=== PATIENT | female | born 1950 | race Caucasian/White ===

== ENCOUNTER 2020-01-14 17:20 | Inpatient (IN) | payer MEDICARE, OTHER, SELFPAY ==
[2020-01-14 17:38] VITALS: BMI 41.1
[2020-01-15] VITALS (10 sets, daily range): BP systolic 76–104; BP diastolic 38–56; PULSE 67–135; RESP 17–20; TEMP 35.2–38.1; O2SAT 91–97
--- NOTE | 2020-01-15 | XR_ITS ---
EXAMINATION: CHEST X-RAY CLINICAL INFORMATION: Fever and shortness of breath COMPARISON: None TECHNIQUE: AP portable chest FINDINGS: Exam is limited due to apical lordotic film technique. The cardiac silhouette appears prominent however this may be artifactual from apical lordotic film technique. Hilar and mediastinal contours are unremarkable. The lungs are clear without evidence of a pneumonia. There is no pleural effusion or pneumothorax. There are degenerative changes of the spine. IMPRESSION: Prominence of the cardiac silhouette which may be artifactual due to apical lordotic film technique. No evidence of pneumonia.
[2020-01-15] MEDS: HYDROmorphone HCl 0.5 MG/0.5 ML SYRINGE IVPUSH (01:15)
[2020-01-15] MEDS: Ketorolac Tromethamine 15 MG/ML VIAL IV (04:57)
[2020-01-15 06:41] LABS: MANUAL DIFF FLAG NO
[2020-01-15 06:52] LABS: Basophils Percent Auto 0.3 % (0-2); Eosinophils Absolute Auto 0.3 X10*3/uL (0.0-0.4); Eosinophils Percent Auto 2.6 % (0-4); Hematocrit 28.9 % (37-47); Hemoglobin 9.1 g/dl (12.0-16.0); Imm Gran Abs Auto 0.05 X10*3/uL (0.00-0.03); Imm Gran Pct Auto 0.4 % (0.0-0.4); Lymphocytes Absolute Auto 1.9 X10*3/uL (1.2-4.9); Mean Corpuscular HGB Conc 31.5 g/dl (31.0-35.0); Mean Corpuscular Hemoglobin 29.2 pg (27.0-33.0); Mean Corpuscular Volume 92.6 fL (80-98); Mean Platelet Volume 12.1 fL (9.4-12.3); Monocytes Absolute Auto 1.4 X10*3/uL (0.1-1.2); Monocytes Percent Auto 11.4 % (2-11); Neutrophils Absolute Auto 8.3 X10*3/uL (2.0-8.3); Neutrophils Percent Auto 69.3 % (45-73); Platelet Count 167 X10*3/uL (160-400); Red Blood Count 3.12 X10*6/uL (4.20-5.50); Red Cell Distribution Width 13.2 % (11.0-16.0)
[2020-01-15 07:06] LABS: Anion Gap 9 (12-20); Blood Urea Nitrogen 14 mg/dL (9-16); Calcium 8.4 mg/dL (8.4-10.2); Carbon Dioxide 31 mmol/L (22-29); Chloride 101 mmol/L (96-108); Creatinine Clr Calc Pharmacy 75.1; Estimated Glomerular Filt Rate > 60; Glucose Random 132 mg/dL (60-115); Potassium 3.7 mmol/l (3.3-5.1); Sodium 137 mmol/L (135-145)
[2020-01-15] MEDS: Dextrose 5 % and 0.45 % NaCl 1,000 ML 80 ML IVCONT ×2 (07:36→20:37)
[2020-01-15] MEDS: oxyCODONE HCl Immed Release 5 MG TABLET 10 MG PO ×2 (09:15→15:56)
[2020-01-15] MEDS: Omeprazole 20 MG CAPSULE.DR PO (09:18)
[2020-01-15] MEDS: oxyCODONE HCl ER 10 MG TAB.ER.12H PO ×2 (09:20→20:35)
[2020-01-15] MEDS: Celecoxib 200 MG CAPSULE PO ×2 (09:20→20:34)
[2020-01-15] MEDS: Acetaminophen 325 MG TABLET 650 MG PO ×3 (09:21→19:22)
--- NOTE | 2020-01-15 11:44 | PM.PNORT ---
Subjective Subjective Principal diagnosis: s/p Rt TKA Interval history: No overnight events. She is ambulating with a walker with some moderate pain. She complains of epigastric pain not see incidents. Physical Exam Vital Signs and I&O and Narrative: Vital Signs and I&O: Vital Signs Temp 100.6 F H 01/15/20 08:00 Pulse 106 H 01/15/20 08:00 Resp 20 01/15/20 08:00 BP 100/47 L 01/15/20 04:00 Pulse Ox 95 01/15/20 08:00 Intake & Output 01/14/20 01/15/20 01/15/20 18:59 06:59 18:59 Weight 217 lb 6.449 oz Body Mass Index 41.1 Extrem: Right lower extremity: normal to inspection, full ROM and normal capillary refill Progress Note: A&P Assessment and plan (1) Status post total right knee replacement: Status: Acute Assessment and Plan: cont pain mgmnt cont PT for RT TKA eliquis for dvt ppx dispo planning Fall Risk Details Current Medications: Current Medications Generic Name Dose Route Start Last Admin Trade Name Freq PRN Reason Stop Dose Admin Acetaminophen 650 mg 01/15/20 01:00 01/15/20 09:21 Acetaminophen 325 Mg Tablet PO 650 mg Q6H DIO Administration Apixaban 2.5 mg 01/15/20 12:00 Apixaban 2.5 Mg Tablet PO Q24H DIO Celecoxib 200 mg 01/15/20 09:00 01/15/20 09:20 Celecoxib 200 Mg Capsule PO 200 mg BID DIO Administration Hydromorphone HCl 0.5 mg 01/15/20 00:00 01/15/20 01:15 Hydromorphone Hcl 0.5 Mg/0.5 Ml Syringe IVPUSH 0.5 mg Q3H PRN Administration Pain, Severe (Pain Scale 7-10) Dextrose/Sodium Chloride 1,000 mls @ 80 mls/hr 01/15/20 01:00 01/15/20 07:36 D51/2ns IVCONT 80 mls/hr .[id number] DIO Administration Ketorolac Tromethamine 15 mg 01/15/20 05:00 01/15/20 04:57 Ketorolac Tromethamine 15 Mg/Ml Vial IV 15 mg Q6H DIO Administration Omeprazole 20 mg 01/15/20 16:30 01/15/20 09:18 Omeprazole 20 Mg Capsule. PO 20 mg BID@0630,1630 [facility] Administration Omeprazole 40 mg 01/15/20 16:30 Omeprazole 40 Mg Capsule. PO BID@0630,1630 [facility] Ondansetron HCl 4 mg 01/15/20 00:00 Ondansetron Hcl 4 Mg/2 Ml Vial IVPUSH Q8H PRN Nausea and Vomiting Oxycodone HCl 10 mg 01/15/20 09:00 01/15/20 09:20 Oxycodone Hcl Er 10 Mg Tab.Er.12h PO 10 mg BID DIO Administration Oxycodone HCl 10 mg 01/15/20 00:00 01/15/20 09:15 Oxycodone Hcl Immed Release 5 Mg Tablet PO 10 mg Q4H PRN Administration Pain, Moderate (Pain Scale 4-6 Senna/Docusate Sodium 1 tab 01/15/20 00:00 Sennosides/Docusate Sodium Tablet PO BEDTIME PRN Constipation Time Spent With Patient Time: Total time spent is greater than 50% in coordination of care (as documented) at patient's floor/unit and/or counseling patient: Time with patient: less than 15 minutes
--- NOTE | 2020-01-15 11:54 | MHC.CM.PN ---
Pt reports she lives at home with her adult son and daughter. Pt reports [employer] she had no services and did not use any DME although she has a cane and two walkers. Pt typically drives herself to appts and is independent with all care. Pt reports she has a HCP completed already. Copy requested. pt interested in having VNA/PT at [place]. Referral placed to [facility] per pt preference.
[2020-01-15 12:36] LABS: Glucose, Whole Blood 115 mg/dL (60-115)
[2020-01-15] MEDS: ondansetron HCL 4 MG/2 ML VIAL IVPUSH (13:01)
--- NOTE | 2020-01-15 13:10 | HO.PM.IMPN ---
Subjective Subjective Date of Service: 01/15/20 Interval History: patient seen and examined at bedside patient was reporting nausea and vomiting yesterday patient denies any nausea and vomiting in the morning but started feeling nauseous in the afternoon Constitutional Constitutional: Reports weakness Gastrointestinal Gastrointestinal: Reports heartburn and Reports vomiting Neurologic Neurologic: Reports weakness Physical Exam Vital Signs and I&O and Narrative: Vital Signs and I&O: Vital Signs Temp 95.4 F L 01/15/20 12:14 Pulse 78 01/15/20 12:14 Resp 20 01/15/20 12:14 BP 102/46 L 01/15/20 12:14 Pulse Ox 97 01/15/20 12:14 Intake & Output 01/14/20 01/15/20 01/15/20 18:59 06:59 18:59 Weight 98.612 kg Body Mass Index 41.1 Const: General: comfortable Resp: Effort & Inspection: normal respiratory effort Cardio: Jugular venous distension: no JVD Skin: General skin exam: no rashes or lesions noted Objective Data Current Medications Generic Name Dose Route Start Last Admin Trade Name Freq PRN Reason Stop Dose Admin Acetaminophen 650 mg 01/15/20 01:00 01/15/20 09:21 Acetaminophen 325 Mg Tablet PO 650 mg Q6H DIO Administration Apixaban 2.5 mg 01/15/20 12:00 Apixaban 2.5 Mg Tablet PO Q24H DIO Celecoxib 200 mg 01/15/20 09:00 01/15/20 09:20 Celecoxib 200 Mg Capsule PO 200 mg BID DIO Administration Hydromorphone HCl 0.5 mg 01/15/20 00:00 01/15/20 01:15 Hydromorphone Hcl 0.5 Mg/0.5 Ml Syringe IVPUSH 0.5 mg Q3H PRN Administration Pain, Severe (Pain Scale 7-10) Dextrose/Sodium Chloride 1,000 mls @ 80 mls/hr 01/15/20 01:00 01/15/20 07:36 D51/2ns IVCONT 80 mls/hr .[id number] DIO Administration Ketorolac Tromethamine 15 mg 01/15/20 05:00 01/15/20 04:57 Ketorolac Tromethamine 15 Mg/Ml Vial IV 15 mg Q6H DIO Administration Omeprazole 40 mg 01/15/20 16:30 Omeprazole 40 Mg Capsule.Dr PO BID@0057,7959 [facility] Ondansetron HCl 4 mg 01/15/20 00:00 01/15/20 13:01 Ondansetron Hcl 4 Mg/2 Ml Vial IVPUSH 4 mg Q8H PRN Administration Nausea and Vomiting Oxycodone HCl 10 mg 01/15/20 09:00 01/15/20 09:20 Oxycodone Hcl Er 10 Mg Tab.Er.12h PO 10 mg BID DIO Administration Oxycodone HCl 10 mg 01/15/20 00:00 01/15/20 09:15 Oxycodone Hcl Immed Release 5 Mg Tablet PO 10 mg Q4H PRN Administration Pain, Moderate (Pain Scale 4-6 Polyethylene Glycol 17 gm 01/16/20 09:00 Polyethylene Glycol 3350 17 Gm Powd.Pack PO DAILY DIO Senna/Docusate Sodium 1 tab 01/15/20 00:00 Sennosides/Docusate Sodium Tablet PO BEDTIME PRN Constipation Labs CBC & Chem 7: 01/16/20 08:15 01/16/20 08:15 Labs: Laboratory Results - last 24 hr 01/15/20 01/15/20 01/15/20 06:00 06:00 12:32 MCV 92.6 MCH 29.2 MCHC 31.5 RDW 13.2 Plt Count 167 MPV 12.1 Immature Gran % (Auto) 0.4 Neut % (Auto) 69.3 Lymph % (Auto) 16.0 L [place] % (Auto) 11.4 H Eos % (Auto) 2.6 Baso % (Auto) 0.3 Neut # (Auto) 8.3 Lymph # (Auto) 1.9 [place] # (Auto) 1.4 H Eos # (Auto) 0.3 Baso # (Auto) 0.0 Abs Immat Gran (auto) 0.05 H Absolute Nucleated RBC 0.000 Nucleated RBC % (auto) 0.0 Anion Gap 9 L Estim Creat Clear Calc 75.1 Estimated GFR > 60 POC Glucose 115 Random Glucose 132 H Calcium 8.4 Assessment and Plan (1) Status post total right knee replacement: Status: Acute Assessment and Plan: management per Ortho (2) Nausea & vomiting: Status: Acute Assessment and Plan: likely gastritis secondary to Toradol history of gastric bypass surgery continue Zofran continue IV famotidine supportive management if patient's symptoms does not improve Will get GI consult (3) Abdominal pain: Status: Acute Assessment and Plan: (4) Diabetes mellitus: Status: Acute (5) Sleep apnea: Status: Acute (6) Low grade fever: Status: Acute Assessment and Plan: will check UA and chest x-ray (7) Leukocytosis: Status: Acute Assessment and Plan: will check UA and chest x-ray history of DVT continue Eliquis
[2020-01-15] MEDS: Famotidine/PF 20 MG/2 ML VIAL IVPUSH (13:54)
[2020-01-15] MEDS: polyethylene glycoL 3350 17 GM POWD.PACK PO (13:55)
[2020-01-15] MEDS: 0.9 % Sodium Chloride 500 ML IV (13:56)
[2020-01-15 14:58] LABS: Glucose Urine UA NEG (NEG); Leukocyte Esterase Urine NEG (NEG); Nitrite Urine NEG (NEG); PH 5.5 (5.0-8.0); Specific Gravity - Urine 1.025 (1.005-1.025); Urine Blood NEG (NEG); Urine Ketones NEG (NEG); Urine Protein TRACE MG/DL (NEG-TRACE)
[2020-01-15 15:01] LABS: Color Urine YELLOW
[2020-01-15 15:02] LABS: Appearance Urine HAZY
--- NOTE | 2020-01-15 15:21 | PC.NURSE ---
AT APPROX. 1230 PT C/O NOT FEELING WELL. SHE DESCRIBES FEEING NAUSEOUS WITH HEARTBURN. ALSO FELT SWEATY AND LIGHT HEADED. BLOOD SUGAR WAS 115. BP 92/45 HR 77. O2 SAT WAS 88 RA. 92% ON 2LT. PT WAS ASSISTED BACK TO BED. DR SMITH MADE AWARE. 500ML NS BOLUS GIVEN. ALSO GIVNE ZOFRAN WITH GOOD EFFECT. MEDICATED WITH IV PEPCID. U/A WAS SENT TO LAB. CHEST XRAY NEG FOR PNEUMONIA AT 1500 PT FEELING MUCH BETTER.
[2020-01-15] MEDS: Magnesium Hydrox/Alum Hydrox 30 ML ORAL.SUSP 15 ML PO (17:55)
[2020-01-15] MEDS: diphenhydrAMINE HCL 25 MG TABLET PO (19:19)
[2020-01-16] VITALS (15 sets, daily range): BP systolic 82–132; BP diastolic 40–62; PULSE 69–92; RESP 18–20; TEMP 36–37.1; O2SAT 92–100; BMI 41.1
[2020-01-16] MEDS: Acetaminophen 325 MG TABLET 650 MG PO ×3 (00:32→20:29)
[2020-01-16] MEDS: diphenhydrAMINE HCL 25 MG TABLET PO (01:22)
[2020-01-16] MEDS: Magnesium Hydrox/Alum Hydrox 30 ML ORAL.SUSP 15 ML PO (01:53)
--- NOTE | 2020-01-16 03:37 | CONS_ITS ---
DATE OF SERVICE: 01/15/2020 REFERRING PHYSICIAN: Zafar Mahan MD REASON FOR CONSULTATION: Nausea, vomiting, abdominal pain, and gastric bypass surgery. HISTORY OF PRESENT ILLNESS: The patient is a pleasant 69-year-old woman who underwent knee replacement on the right on January 12. Postoperatively, she has had some postprandial nausea with vomiting, some generalized substernal and epigastric pain, and some constipation. She denies prior history of GI issues. She is status post gastric bypass surgery for elevated BMI approximately 9 months ago and reports losing about 60 pounds. She does not take anything at home for reflux. In the hospital, postoperatively, she has been on Pepcid. She complains of a burning sensation in the epigastrium and lower substernal chest area after eating. There is no hematemesis or melena and no dysphagia. She has had some constipation postoperatively. PAST MEDICAL HISTORY: 1. Hypertension. 2. Borderline diabetes. 3. Elevated BMI. 4. Degenerative joint disease. 5. Colon polyps. CURRENT MEDICATIONS: Her current medication list is reviewed in the chart. ALLERGIES: ENOXAPARIN AND MORPHINE. FAMILY HISTORY: This is reviewed with the patient, it is noncontributory. SOCIAL HISTORY: There is no current tobacco, alcohol, or substance abuse. REVIEW OF SYSTEMS: SKIN: No pruritus. HEENT: Negative. CARDIOPULMONARY: No shortness of breath or chest pain. GASTROINTESTINAL: As above. GENITOURINARY: Negative. NEUROPSYCHIATRIC: Negative. PHYSICAL EXAMINATION: GENERAL: Shows a pleasant female who was eating a ham and cheese sandwich. VITAL SIGNS: Stable. SKIN: Anicteric. HEENT: Shows no scleral icterus. NECK: Without lymphadenopathy or thyromegaly. LUNGS: Clear. HEART: Shows a regular rate and rhythm. S1 and S2. No murmur. ABDOMEN: Soft without focal masses or tenderness. Bowel sounds are present. No organomegaly is noted. EXTREMITIES: Without edema. Venodyne boots are in place on the left leg. LABORATORY DATA: Shows a hematocrit of 30 and white count of 9.9. IMPRESSION: Abdominal pain with nausea, vomiting, and history of gastric bypass surgery, this seems very likely that some of her symptoms are related to esophageal reflux or gastritis. There is no evidence of active GI bleeding. I would recommend aggressive acid suppression with IV Protonix until she feels better, then she can be switched over to oral omeprazole. She can have antacids as needed before meals to help with the discomfort with eating. Thanks for asking me to see her. I will follow her in the hospital with you. MD JACQUELINE Ignacio/TAB / [id number]
[2020-01-16 06:26] LABS: MANUAL DIFF FLAG NO
[2020-01-16 06:32] LABS: Basophils Absolute Auto 0.1 X10*3/uL (0.0-0.2); Basophils Percent Auto 0.6 % (0-2); Eosinophils Absolute Auto 0.2 X10*3/uL (0.0-0.4); Eosinophils Percent Auto 2.6 % (0-4); Hematocrit 24.6 % (37-47); Hemoglobin 7.7 g/dl (12.0-16.0); Imm Gran Abs Auto 0.04 X10*3/uL (0.00-0.03); Imm Gran Pct Auto 0.4 % (0.0-0.4); Lymphocytes Percent Auto 21.3 % (20-40); Mean Corpuscular HGB Conc 31.3 g/dl (31.0-35.0); Mean Corpuscular Hemoglobin 29.2 pg (27.0-33.0); Mean Corpuscular Volume 93.2 fL (80-98); Mean Platelet Volume 12.1 fL (9.4-12.3); Monocytes Absolute Auto 0.9 X10*3/uL (0.1-1.2); Monocytes Percent Auto 9.1 % (2-11); Neutrophils Absolute Auto 6.2 X10*3/uL (2.0-8.3); Platelet Count 138 X10*3/uL (160-400); Red Blood Count 2.64 X10*6/uL (4.20-5.50); Red Cell Distribution Width 13.2 % (11.0-16.0); White Blood Count 9.3 X10*3/uL (4.8-10.8)
[2020-01-16] MEDS: Pantoprazole Sodium 40 MG/10 ML VIAL IVPUSH ×2 (06:36→20:32)
[2020-01-16] MEDS: oxyCODONE HCl Immed Release 5 MG TABLET 10 MG PO ×3 (06:37→23:57)
[2020-01-16] MEDS: 0.9 % Sodium Chloride 1,000 ML 75 ML IVCONT (08:05)
--- NOTE | 2020-01-16 08:25 | PM.PNORT ---
Subjective Subjective Principal diagnosis: s/p Rt TKA Interval history: POD 3 - No overnight events, resting in bed, She was seen by GI who recommended IV protonix . Her BP is on the lower side, she had some bolus yesterday. She denies cp, sob, dizziness. Physical Exam Vital Signs and I&O and Narrative: Vital Signs and I&O: Vital Signs Temp 96.8 F 01/16/20 07:29 Pulse 71 01/16/20 07:29 Resp 20 01/16/20 07:29 BP 82/48 L 01/16/20 07:48 Pulse Ox 93 01/16/20 07:29 Intake & Output 01/15/20 01/16/20 01/16/20 18:59 06:59 18:59 Intake Total 720 / 1520 800 / 1520 0 / 0 Balance 720 / 1520 800 / 1520 0 / 0 Intake: Intake, Oral [place] unt 220 / 220 Intake, IV Amoun t 500 / 1300 800 / 1300 0 / 0 0.9 % Sodium C hloride 500 ml @ 500 / 500 500 mls/hr IV .Q1H DIO Rx#: [id number] Dextrose 5 % a nd 0.45 % NaCl 1, 800 / 800 0 / 0 000 ml @ 80 ml s/hr IVCONT . [id number] DIO Rx #:[id number] Other: Meal Refused No No NPO No No Dinner % Eaten 50% Number of Incont inent Voids 600 Number of Unmeas ured Voids 1 Urine Bathroom Urine Color Yellow Body Mass Index 41.1 Const: General: cooperative, healthy appearing, comfortable and no acute distress Resp: Effort & Inspection: normal respiratory effort and able to speak in complete sentences Cardio: Peripheral pulses: Peripheral pulses 2+ throughout GI: Palpation (GI): Soft to palpation Extrem: Other: [place] clean, dry and intact. No erythema, mild edema, Sensation intact. Progress Note: A&P Assessment and plan (1) Status post total right knee replacement: Status: Acute Assessment and Plan: Continue pain mgmnt continue PT for RT TKA continue eliquis monitor BP/h/h Dispo planning-pending medical clearance Fall Risk Details Current Medications: Current Medications Generic Name Dose Route Start Last Admin Trade Name Freq PRN Reason Stop Dose Admin Acetaminophen 650 mg 01/15/20 01:00 10/02/20 06:36 Acetaminophen 325 Mg Tablet PO 650 mg Q6H DIO Administration Al Hydroxide/Mg Hydroxide 15 ml 01/15/20 17:30 01/16/20 01:53 Magnesium Hydrox/Alum Hydrox 30 Ml Oral.Susp PO 15 ml Q4H PRN Administration GI Upset Diphenhydramine HCl 25 mg 01/15/20 19:06 01/16/20 01:22 Diphenhydramine Hcl 25 Mg Tablet PO 25 mg Q6H PRN Administration Itching Hydromorphone HCl 0.5 mg 01/15/20 00:00 01/15/20 01:15 Hydromorphone Hcl 0.5 Mg/0.5 Ml Syringe IVPUSH 0.5 mg Q3H PRN Administration Pain, Severe (Pain Scale 7-10) Sodium Chloride 1,000 mls @ 75 mls/hr 01/16/20 08:00 01/16/20 08:05 Ns IVCONT 75 mls/hr .[id number] DIO Administration Ondansetron HCl 4 mg 01/15/20 00:00 01/15/20 13:01 Ondansetron Hcl 4 Mg/2 Ml Vial IVPUSH 4 mg Q8H PRN Administration Nausea and Vomiting Oxycodone HCl 10 mg 01/15/20 09:00 01/15/20 20:35 Oxycodone Hcl Er 10 Mg Tab.Er.12h PO 10 mg BID DIO Administration Oxycodone HCl 10 mg 01/15/20 00:00 01/16/20 06:37 Oxycodone Hcl Immed Release 5 Mg Tablet PO 10 mg Q4H PRN Administration Pain, Moderate (Pain Scale 4-6 Pantoprazole Sodium 40 mg 01/16/20 06:30 01/16/20 06:36 Pantoprazole Sodium 40 Mg/10 Ml Vial IVPUSH 40 mg BID@0630,1630 DIO Administration Polyethylene Glycol 17 gm 01/16/20 09:00 01/15/20 13:55 Polyethylene Glycol 3350 17 Gm Powd.Pack PO 17 gm DAILY DIO Administration Senna/Docusate Sodium 1 tab 01/15/20 00:00 Sennosides/Docusate Sodium Tablet PO BEDTIME PRN Constipation Time Spent With Patient Time: Total time spent is greater than 50% in coordination of care (as documented) at patient's floor/unit and/or counseling patient: Time with patient: 15 - 24 minutes
[2020-01-16 08:55] LABS: MANUAL DIFF FLAG NO
[2020-01-16 09:14] LABS: Basophils Percent Auto 0.3 % (0-2); Eosinophils Absolute Auto 0.3 X10*3/uL (0.0-0.4); Hemoglobin 7.7 g/dl (12.0-16.0); Imm Gran Abs Auto 0.03 X10*3/uL (0.00-0.03); Imm Gran Pct Auto 0.3 % (0.0-0.4); Lymphocytes Absolute Auto 1.6 X10*3/uL (1.2-4.9); Lymphocytes Percent Auto 17.9 % (20-40); Mean Corpuscular HGB Conc 32.1 g/dl (31.0-35.0); Mean Corpuscular Hemoglobin 29.8 pg (27.0-33.0); Mean Platelet Volume 12.1 fL (9.4-12.3); Monocytes Absolute Auto 0.9 X10*3/uL (0.1-1.2); Monocytes Percent Auto 10.5 % (2-11); Neutrophils Absolute Auto 6.1 X10*3/uL (2.0-8.3); Platelet Count 135 X10*3/uL (160-400); Red Blood Count 2.58 X10*6/uL (4.20-5.50); Red Cell Distribution Width 13.2 % (11.0-16.0)
[2020-01-16 09:40] LABS: Anion Gap 9 (12-20); Blood Urea Nitrogen 20 mg/dL (9-16); Calcium 8.1 mg/dL (8.4-10.2); Carbon Dioxide 30 mmol/L (22-29); Chloride 102 mmol/L (96-108); Creatinine Clr Calc Pharmacy 62.9; Estimated Glomerular Filt Rate > 60; Glucose Random 106 mg/dL (60-115); Potassium 3.8 mmol/l (3.3-5.1); Sodium 137 mmol/L (135-145)
--- NOTE | 2020-01-16 11:47 | P.PNIM_ITS ---
Subjective Subjective Date of Service: 01/16/20 Interval History: patient seen and examined at bedside patient still reporting abdominal discomfort Constitutional Constitutional: Reports weakness Cardiovascular Cardiovascular: Reports epigastric discomfort Gastrointestinal Gastrointestinal: Reports abdominal pain and Reports nausea Neurologic Neurologic: Reports weakness Physical Exam Vital Signs and I&O and Narrative: Vital Signs and I&O: Vital Signs Temp 96.9 F 01/16/20 08:00 Pulse 72 01/16/20 08:00 Resp 20 01/16/20 08:00 BP 96/54 L 01/16/20 09:19 Pulse Ox 92 01/16/20 09:19 Intake & Output 01/15/20 01/16/20 01/16/20 18:59 06:59 18:59 Intake Total 720 / 1520 800 / 1520 0 / 0 Output Total 500 / 500 Balance 720 / 1520 800 / 1520 -500 / -500 Urine Output (Aver age ml/kg/hr) 0.42 Intake: Intake, Oral [place] unt 220 / 220 Intake, IV Amoun t 500 / 1300 800 / 1300 0 / 0 0.9 % Sodium C hloride 500 ml @ 500 / 500 500 mls/hr IV .Q1H [facility] Rx#: [id number] Dextrose 5 % a nd 0.45 % NaCl 1, 800 / 800 0 / 0 000 ml @ 80 ml s/hr IVCONT . [id number] DIO Rx #:[id number] Output: Output, Urine Am ount 500 / 500 Other: Meal Refused No No NPO No No Dinner % Eaten 50% Number of Incont inent Voids 600 Number of Unmeas ured Voids 1 Urine Bathroom Bathroom Urine Color Yellow Yellow Body Mass Index 41.1 Objective Data Current Medications Generic Name Dose Route Start Last Admin Trade Name Freq PRN Reason Stop Dose Admin Acetaminophen 650 mg 01/15/20 01:00 01/16/20 06:36 Acetaminophen 325 Mg Tablet PO 650 mg Q6H DIO Administration Al Hydroxide/Mg Hydroxide 15 ml 01/15/20 17:30 01/16/20 01:53 Magnesium Hydrox/Alum Hydrox 30 Ml Oral.Susp PO 15 ml Q4H PRN Administration GI Upset Diphenhydramine HCl 25 mg 01/15/20 19:06 01/16/20 01:22 Diphenhydramine Hcl 25 Mg Tablet PO 25 mg Q6H PRN Administration Itching Hydromorphone HCl 0.5 mg 01/15/20 00:00 01/15/20 01:15 Hydromorphone Hcl 0.5 Mg/0.5 Ml Syringe IVPUSH 0.5 mg Q3H PRN Administration Pain, Severe (Pain Scale 7-10) Sodium Chloride 1,000 mls @ 75 mls/hr 01/16/20 08:00 01/16/20 08:05 Ns IVCONT 75 mls/hr .[id number] DIO Administration Ondansetron HCl 4 mg 01/15/20 00:00 01/15/20 13:01 Ondansetron Hcl 4 Mg/2 Ml Vial IVPUSH 4 mg Q8H PRN Administration Nausea and Vomiting Oxycodone HCl 10 mg 01/15/20 09:00 01/16/20 11:28 Oxycodone Hcl Er 10 Mg Tab.Er.12h PO Not Given BID DIO Oxycodone HCl 10 mg 01/15/20 00:00 01/16/20 06:37 Oxycodone Hcl Immed Release 5 Mg Tablet PO 10 mg Q4H PRN Administration Pain, Moderate (Pain Scale 4-6 Pantoprazole Sodium 40 mg 01/16/20 06:30 01/16/20 06:36 Pantoprazole Sodium 40 Mg/10 Ml Vial IVPUSH 40 mg BID@0630,1630 DIO Administration Polyethylene Glycol 17 gm 01/16/20 09:00 01/15/20 13:55 Polyethylene Glycol 3350 17 Gm Powd.Pack PO 17 gm DAILY DIO Administration Senna/Docusate Sodium 1 tab 01/15/20 00:00 Sennosides/Docusate Sodium Tablet PO BEDTIME PRN Constipation Labs CBC & Chem 7: 01/16/20 08:15 01/16/20 08:15 Labs: Laboratory Results - last 24 hr 01/15/20 01/15/20 01/16/20 12:32 14:42 05:57 MCV 93.2 MCH 29.2 MCHC 31.3 RDW 13.2 Plt Count 138 L MPV 12.1 Immature Gran % (Auto) 0.4 Neut % (Auto) 66.0 Lymph % (Auto) 21.3 [place] % (Auto) 9.1 Eos % (Auto) 2.6 Baso % (Auto) 0.6 Neut # (Auto) 6.2 Lymph # (Auto) 2.0 [place] # (Auto) 0.9 Eos # (Auto) 0.2 Baso # (Auto) 0.1 Abs Immat Gran (auto) 0.04 H Absolute Nucleated RBC 0.000 Nucleated RBC % (auto) 0.0 Anion Gap Estim Creat Clear Calc Estimated GFR POC Glucose 115 Random Glucose Calcium Urine Color YELLOW Urine Appearance HAZY Urine pH 5.5 Ur Specific [place] 1.025 Urine Protein TRACE Urine Glucose (UA) NEG Urine Ketones NEG Urine Blood NEG Urine Nitrite NEG Ur Leukocyte Esterase NEG Blood Type 01/16/20 01/16/20 01/16/20 08:15 08:15 11:07 MCV 93.0 MCH 29.8 MCHC 32.1 RDW 13.2 Plt Count 135 L MPV 12.1 Immature Gran % (Auto) 0.3 Neut % (Auto) 68.0 Lymph % (Auto) 17.9 L [place] % (Auto) 10.5 Eos % (Auto) 3.0 Baso % (Auto) 0.3 Neut # (Auto) 6.1 Lymph # (Auto) 1.6 [place] # (Auto) 0.9 Eos # (Auto) 0.3 Baso # (Auto) 0.0 Abs Immat Gran (auto) 0.03 Absolute Nucleated RBC 0.000 Nucleated RBC % (auto) 0.0 Anion Gap 9 L Estim Creat Clear Calc 62.9 Estimated GFR > 60 POC Glucose Random Glucose 106 Calcium 8.1 L Urine Color Urine Appearance Urine pH Ur Specific [place] Urine Protein Urine Glucose (UA) Urine Ketones Urine Blood Urine Nitrite Ur Leukocyte Esterase Blood Type O Positive Assessment and Plan (1) Status post total right knee replacement: Status: Acute (2) Nausea & vomiting: Status: Acute (3) Abdominal pain: Status: Acute (4) Diabetes mellitus: Status: Acute (5) Sleep apnea: Status: Acute (6) Low grade fever: Status: Acute (7) Leukocytosis: Status: Acute Assessment and Plan: status post knee surgery management per Ortho Nausea vomiting and abdominal pain recent history of gastric sleeve surgery hemoglobin dropped today from 9-7 rule out GI bleed likely gastritis secondary to Toradolr/o gi bleed continue Zofran seen by gastroenterology recommended continue IV PPI Hold Toradol supportive management will check stool for occult blood Will get GI follow-up Acute blood loss anemia likely postop given epigastric pain and nausea will rule out GI bleed hemoglobin dropped from 9-7 will transfuse 2 units of PRBC monitor H&H closely hypotension likely secondary to dehydration from nausea and vomiting, rule out GI bleed continue IV fluid monitor blood pressure monitor blood pressure closely Diabetes mellitus continue insulin monitor blood glucose continue CPAP at night fever resolved UA and chest x-ray unremarkable sepsis less likely leukocytosis trending down History of DVT Eliquis on hold for anemia and drop in h/h continue venodyne
--- NOTE | 2020-01-16 13:12 | MHC.CM.PN ---
PATIENT'S DAUGHTER GREGORY ([phone]) UPDATED ON POSSIBLE DISCHARGE PLANS FOR TUESDAY 01/16. GREGORY WILL BE IN TODAY TO VISIT. SHE HAS THIS [employer]TO[employer] TECHNICIAN'S CONTACT NUMBER IN THE EVENT THAT SHE HAS ANY FURTHER QUESTIONS.
--- NOTE | 2020-01-16 15:13 | PM.GIPN ---
Subjective Subjective Date of Service: 01/16/20 Interval History: Still with nausea and vomiting no hematemesis or melena Physical Exam Vital Signs and I&O and Narrative: Vital Signs and I&O: Vital Signs Temp 98.3 F 01/16/20 12:00 Pulse 89 01/16/20 12:00 Resp 20 01/16/20 12:00 BP 98/44 L 01/16/20 12:00 Pulse Ox 100 01/16/20 12:00 Intake & Output 01/15/20 01/16/20 01/16/20 18:59 06:59 18:59 Intake Total 720 / 1520 800 / 1520 0 / 0 Output Total 500 / 500 Balance 720 / 1520 800 / 1520 -500 / -500 Urine Output (Aver age ml/kg/hr) 0.42 Weight 98.6 kg Intake: Intake, Oral [place] unt 220 / 220 Intake, IV Amoun t 500 / 1300 800 / 1300 0 / 0 0.9 % Sodium C hloride 500 ml @ 500 / 500 500 mls/hr IV .Q1H DIO Rx#: [id number] Dextrose 5 % a nd 0.45 % NaCl 1, 800 / 800 0 / 0 000 ml @ 80 ml s/hr IVCONT . [id number] [facility] Rx #:[id number] Output: Output, Urine Am ount 500 / 500 Other: Meal Refused No No NPO No No Dinner % Eaten 50% Number of Incont inent Voids 600 Number of Unmeas ured Voids 1 Urine Bathroom Bathroom Urine Color Yellow Yellow Body Mass Index 41.1 GI: Palpation (GI): Soft to palpation and No hepatosplenomegaly present Objective Data Labs CBC & Chem 7: 01/16/20 08:15 01/16/20 08:15 Labs: Laboratory Results - last 24 hr 01/16/20 01/16/20 01/16/20 05:57 08:15 08:15 WBC 9.3 9.0 RBC 2.64 L 2.58 L Hgb 7.7 L 7.7 L Hct 24.6 L 24.0 L MCV 93.2 93.0 MCH 29.2 29.8 MCHC 31.3 32.1 RDW 13.2 13.2 Plt Count 138 L 135 L MPV 12.1 12.1 Immature Gran % (Auto) 0.4 0.3 Neut % (Auto) 66.0 68.0 Lymph % (Auto) 21.3 17.9 L [place] % (Auto) 9.1 10.5 Eos % (Auto) 2.6 3.0 Baso % (Auto) 0.6 0.3 Neut # (Auto) 6.2 6.1 Lymph # (Auto) 2.0 1.6 [place] # (Auto) 0.9 0.9 Eos # (Auto) 0.2 0.3 Baso # (Auto) 0.1 0.0 Abs Immat Gran (auto) 0.04 H 0.03 Absolute Nucleated RBC 0.000 0.000 Nucleated RBC % (auto) 0.0 0.0 Sodium 137 Potassium 3.8 Chloride 102 Carbon Dioxide 30 H Anion Gap 9 L BUN 20 H Creatinine 0.92 Estim Creat Clear Calc 62.9 Estimated GFR > 60 Random Glucose 106 Calcium 8.1 L Blood Type Antibody Screen Crossmatch 01/16/20 11:07 WBC RBC Hgb Hct MCV MCH MCHC RDW Plt Count MPV Immature Gran % (Auto) Neut % (Auto) Lymph % (Auto) [place] % (Auto) Eos % (Auto) Baso % (Auto) Neut # (Auto) Lymph # (Auto) [place] # (Auto) Eos # (Auto) Baso # (Auto) Abs Immat Gran (auto) Absolute Nucleated RBC Nucleated RBC % (auto) Sodium Potassium Chloride Carbon Dioxide Anion Gap BUN Creatinine Estim Creat Clear Calc Estimated GFR Random Glucose Calcium Blood Type O Positive Antibody Screen NEGATIVE Crossmatch See Detail Progress Note: A&P Assessment and plan (1) Nausea & vomiting: Status: Acute Assessment and Plan: No signs of gi bleeding, no melena or hematemesis. Will plan EGD Mon for evaluation of persistent symptoms. If symptoms improve and she is stable for d/c over weekend, EGD can be electively scheduled as an outpatient. Fall Risk Details Current Medications: Current Medications Generic Name Dose Route Start Last Admin Trade Name Freq PRN Reason Stop Dose Admin Acetaminophen 650 mg 01/15/20 01:00 01/16/20 06:36 Acetaminophen 325 Mg Tablet PO 650 mg Q6H DIO Administration Al Hydroxide/Mg Hydroxide 15 ml 01/15/20 17:30 01/16/20 01:53 Magnesium Hydrox/Alum Hydrox 30 Ml Oral.Susp PO 15 ml Q4H PRN Administration GI Upset Diphenhydramine HCl 25 mg 01/15/20 19:06 01/16/20 01:22 Diphenhydramine Hcl 25 Mg Tablet PO 25 mg Q6H PRN Administration Itching Hydromorphone HCl 0.5 mg 01/15/20 00:00 01/15/20 01:15 Hydromorphone Hcl 0.5 Mg/0.5 Ml Syringe IVPUSH 0.5 mg Q3H PRN Administration Pain, Severe (Pain Scale 7-10) Sodium Chloride 1,000 mls @ 75 mls/hr 01/16/20 08:00 01/16/20 08:05 Ns IVCONT 75 mls/hr .[id number] DIO Administration Ondansetron HCl 4 mg 01/15/20 00:00 01/15/20 13:01 Ondansetron Hcl 4 Mg/2 Ml Vial IVPUSH 4 mg Q8H PRN Administration Nausea and Vomiting Oxycodone HCl 10 mg 01/15/20 09:00 01/16/20 11:28 Oxycodone Hcl Er 10 Mg Tab.Er.12h PO Not Given BID DIO Oxycodone HCl 10 mg 01/15/20 00:00 01/16/20 06:37 Oxycodone Hcl Immed Release 5 Mg Tablet PO 10 mg Q4H PRN Administration Pain, Moderate (Pain Scale 4-6 Pantoprazole Sodium 40 mg 01/16/20 06:30 01/16/20 06:36 Pantoprazole Sodium 40 Mg/10 Ml Vial IVPUSH 40 mg BID@0630,1630 DIO Administration Polyethylene Glycol 17 gm 01/16/20 09:00 01/15/20 13:55 Polyethylene Glycol 3350 17 Gm Powd.Pack PO 17 gm DAILY DIO Administration Senna/Docusate Sodium 1 tab 01/15/20 00:00 Sennosides/Docusate Sodium Tablet PO BEDTIME PRN Constipation Time Spent With Patient Time: Total time spent is greater than 50% in coordination of care (as documented) at patient's floor/unit and/or counseling patient: Time with patient: less than 15 minutes
--- NOTE | 2020-01-16 18:33 | PC.NURSE ---
Pt noted to have new bruising to outer aspect of right thigh above surgical site. Pt denies pain with flexion of foot. Bilateral legs equal in temperature. Sequential compression devices on all shift. EDEL Hannah made aware. NNO, continue to monitor. Oncoming nurse made aware.
[2020-01-16] MEDS: oxyCODONE HCl ER 10 MG TAB.ER.12H PO (20:29)
[2020-01-17] VITALS (8 sets, daily range): BP systolic 102–139; BP diastolic 46–78; PULSE 72–97; RESP 19–20; TEMP 35.8–36.8; O2SAT 92–96
[2020-01-17] MEDS: Acetaminophen 325 MG TABLET 650 MG PO ×4 (02:35→20:04)
[2020-01-17] MEDS: diphenhydrAMINE HCL 25 MG TABLET PO ×2 (02:35→21:31)
[2020-01-17] MEDS: Sennosides/Docusate Sodium TABLET 1 TAB PO (02:42)
[2020-01-17] MEDS: 0.9 % Sodium Chloride 1,000 ML 75 ML IVCONT ×2 (02:43→15:59)
--- NOTE | 2020-01-17 04:33 | PC.NURSE ---
pt c/o itching at about 230 am itching bilat legs benadryl 25 mg po was given and lots of ice to her right knee with good relief will monitor.
[2020-01-17] MEDS: Pantoprazole Sodium 40 MG/10 ML VIAL IVPUSH ×2 (05:53→16:04)
[2020-01-17 07:08] LABS: MANUAL DIFF FLAG NO
[2020-01-17 07:18] LABS: Basophils Percent Auto 0.5 % (0-2); Eosinophils Absolute Auto 0.3 X10*3/uL (0.0-0.4); Eosinophils Percent Auto 3.5 % (0-4); Hemoglobin 8.9 g/dl (12.0-16.0); Imm Gran Abs Auto 0.05 X10*3/uL (0.00-0.03); Imm Gran Pct Auto 0.7 % (0.0-0.4); Lymphocytes Absolute Auto 1.7 X10*3/uL (1.2-4.9); Lymphocytes Percent Auto 22.5 % (20-40); Mean Corpuscular HGB Conc 31.8 g/dl (31.0-35.0); Mean Corpuscular Hemoglobin 29.9 pg (27.0-33.0); Mean Platelet Volume 11.3 fL (9.4-12.3); Monocytes Percent Auto 12.9 % (2-11); Neutrophils Absolute Auto 4.6 X10*3/uL (2.0-8.3); Neutrophils Percent Auto 59.9 % (45-73); Platelet Count 162 X10*3/uL (160-400); Red Blood Count 2.98 X10*6/uL (4.20-5.50); Red Cell Distribution Width 13.4 % (11.0-16.0); White Blood Count 7.7 X10*3/uL (4.8-10.8)
[2020-01-17] MEDS: polyethylene glycoL 3350 17 GM POWD.PACK PO (09:33)
[2020-01-17] MEDS: oxyCODONE HCl ER 10 MG TAB.ER.12H PO ×2 (09:33→21:31)
--- NOTE | 2020-01-17 10:32 | PM.PNORT ---
Subjective Subjective Principal diagnosis: s/p Rt TKA Interval history: POD 4 s/p RT TKA-No overnight events. She is doing well, sitting in chair. Her pain is manageable but she gets itchy with Oxycodone-will switch to vicodin. Denies CP, SOB, dizziness. Physical Exam Vital Signs and I&O and Narrative: Vital Signs and I&O: Vital Signs Temp 97.2 F 01/17/20 08:00 Pulse 72 01/17/20 08:00 Resp 19 01/17/20 08:00 BP 102/62 01/17/20 08:00 Pulse Ox 96 01/17/20 02:23 Intake & Output 01/16/20 01/17/20 01/17/20 18:59 06:59 18:59 Intake Total 240 / 1770 1530 / 1770 Output Total 800 / 800 0 / 800 Balance -560 / 970 1530 / 970 Urine Output (Aver age ml/kg/hr) 0.68 0.68 Weight 217 lb 6.012 oz Intake: Intake, Oral [place] unt 240 / 420 180 / 420 Intake (Blood Pr oduct) Amount 0 / 350 350 / 350 Red Blood Cell s (E0382) Unit 0 / 350 350 / 350 [id number] Red Blood Cell s (E0382) Unit 0 / 0 [id number] Intake, IV Amoun t 0 / 1000 1000 / 1000 0.9 % Sodium C hloride 1,000 ml 1000 / 1000 @ 75 mls/hr IV CONT .[id number] [facility] Rx#:[id number] Dextrose 5 % a nd 0.45 % NaCl 1, 0 / 0 000 ml @ 80 ml s/hr IVCONT . [id number] [facility] Rx #:[id number] Output: Output, Urine Am ount 800 / 800 Output, Stool Am ount 0 / 0 Other: Meal Refused No Yes NPO No Breakfast % Eate n 75% Lunch % Eaten 100% Dinner % Eaten 100% 75% Number of Bowel Movements 0 Urine Bathroom Bedpan Urine Color Yellow Yellow Body Mass Index 41.1 Const: General: cooperative, healthy appearing and no acute distress Resp: Effort & Inspection: normal respiratory effort and able to speak in complete sentences Cardio: Rate: regular rate Peripheral pulses: Peripheral pulses 2+ throughout GI: Inspection: Yes normal to inspection Palpation (GI): Soft to palpation Skin: General skin exam: no rashes or lesions noted Extrem: Other: Right knee - no erythema, mild edema, sensation intact. ROM 0-90. Calf supple non tender Progress Note: A&P Assessment and plan (1) Status post total right knee replacement: Status: Acute Assessment and Plan: Cont pain mgmnt Cont PT for RT TKA Eliquis for dvt ppx Change oxycodone to vicodin Dispo- pending med clearance Fall Risk Details Current Medications: Current Medications Generic Name Dose Route Start Last Admin Trade Name Freq PRN Reason Stop Dose Admin Acetaminophen 650 mg 01/15/20 01:00 01/17/20 07:53 Acetaminophen 325 Mg Tablet PO 650 mg Q6H DIO Administration Al Hydroxide/Mg Hydroxide 15 ml 01/15/20 17:30 01/16/20 01:53 Magnesium Hydrox/Alum Hydrox 30 Ml Oral.Susp PO 15 ml Q4H PRN Administration GI Upset Diphenhydramine HCl 25 mg 01/15/20 19:06 01/17/20 02:35 Diphenhydramine Hcl 25 Mg Tablet PO 25 mg Q6H PRN Administration Itching Hydromorphone HCl 0.5 mg 01/15/20 00:00 01/15/20 01:15 Hydromorphone Hcl 0.5 Mg/0.5 Ml Syringe IVPUSH 0.5 mg Q3H PRN Administration Pain, Severe (Pain Scale 7-10) Sodium Chloride 1,000 mls @ 75 mls/hr 01/16/20 08:00 01/17/20 02:43 Ns IVCONT 75 mls/hr .[id number] DIO Administration Ondansetron HCl 4 mg 01/15/20 00:00 01/15/20 13:01 Ondansetron Hcl 4 Mg/2 Ml Vial IVPUSH 4 mg Q8H PRN Administration Nausea and Vomiting Oxycodone HCl 10 mg 01/15/20 09:00 01/17/20 09:33 Oxycodone Hcl Er 10 Mg Tab.Er.12h PO 10 mg BID DIO Administration Oxycodone HCl 10 mg 01/15/20 00:00 01/16/20 23:57 Oxycodone Hcl Immed Release 5 Mg Tablet PO 10 mg Q4H PRN Administration Pain, Moderate (Pain Scale 4-6 Pantoprazole Sodium 40 mg 01/16/20 06:30 01/17/20 05:53 Pantoprazole Sodium 40 Mg/10 Ml Vial IVPUSH 40 mg BID@0630,1630 DIO Administration Polyethylene Glycol 17 gm 01/16/20 09:00 01/17/20 09:33 Polyethylene Glycol 3350 17 Gm Powd.Pack PO 17 gm DAILY DIO Administration Senna/Docusate Sodium 1 tab 01/15/20 00:00 01/17/20 02:42 Sennosides/Docusate Sodium Tablet PO 1 tab BEDTIME PRN Administration Constipation Time Spent With Patient Time: Total time spent is greater than 50% in coordination of care (as documented) at patient's floor/unit and/or counseling patient: Time with patient: 15 - 24 minutes Progress Note: Quality VTE Deep Vein Thrombosis/Pulmonary Embolism Present on Admission: No
[2020-01-17] MEDS: Lactulose 20 GM/30 ML SOLUTION 30 GM PO (12:27)
--- NOTE | 2020-01-17 12:39 | HO.PM.IMPN ---
Subjective Subjective Date of Service: 01/16/20 Interval History: patient seen and examined at bedside patient still reporting some abdominal discomfort denies any dizziness Constitutional Constitutional: Reports weakness Cardiovascular Cardiovascular: Reports epigastric discomfort Gastrointestinal Gastrointestinal: Reports abdominal pain and Reports nausea Neurologic Neurologic: Reports weakness Physical Exam Vital Signs and I&O and Narrative: Vital Signs and I&O: Vital Signs Temp 97.8 F 01/17/20 12:00 Pulse 72 01/17/20 12:00 Resp 19 01/17/20 12:00 BP 110/46 L 01/17/20 12:00 Pulse Ox 92 01/17/20 12:00 Intake & Output 01/16/20 01/17/20 01/17/20 18:59 06:59 18:59 Intake Total 240 / 1770 1530 / 1770 Output Total 800 / 800 0 / 800 Balance -560 / 970 1530 / 970 Urine Output (Aver age ml/kg/hr) 0.68 0.68 Weight 98.6 kg Intake: Intake, Oral [place] unt 240 / 420 180 / 420 Intake (Blood Pr oduct) Amount 0 / 350 350 / 350 Red Blood Cell s (E0382) Unit 0 / 350 350 / 350 [id number] Red Blood Cell s (E0382) Unit 0 / 0 [id number] Intake, IV Amoun t 0 / 1000 1000 / 1000 0.9 % Sodium C hloride 1,000 ml 1000 / 1000 @ 75 mls/hr IV CONT .[id number] [facility] Rx#:[id number] Dextrose 5 % a nd 0.45 % NaCl 1, 0 / 0 000 ml @ 80 ml s/hr IVCONT . [id number] [facility] Rx #:[id number] Output: Output, Urine Am ount 800 / 800 Output, Stool Am ount 0 / 0 Other: Meal Refused No Yes NPO No Breakfast % Eate n 75% Lunch % Eaten 100% Dinner % Eaten 100% 75% Number of Bowel Movements 0 Urine Bathroom Bedpan Urine Color Yellow Yellow Body Mass Index 41.1 Const: General: comfortable Resp: Effort & Inspection: normal respiratory effort Cardio: Jugular venous distension: no JVD GI: Inspection: Yes normal to inspection Skin: General skin exam: no rashes or lesions noted Objective Data Current Medications Generic Name Dose Route Start Last Admin Trade Name Freq PRN Reason Stop Dose Admin Acetaminophen 650 mg 01/15/20 01:00 01/17/20 07:53 Acetaminophen 325 Mg Tablet PO 650 mg Q6H DIO Administration Hydrocodone Bitart/Acetaminophen 1 tab 01/17/20 10:38 Hydrocodone Bit/Acetam 5/325 Tablet PO Q4H PRN Pain, Moderate (Pain Scale 4-6 Al Hydroxide/Mg Hydroxide 15 ml 01/15/20 17:30 01/16/20 01:53 Magnesium Hydrox/Alum Hydrox 30 Ml Oral.Susp PO 15 ml Q4H PRN Administration GI Upset Diphenhydramine HCl 25 mg 01/15/20 19:06 01/17/20 02:35 Diphenhydramine Hcl 25 Mg Tablet PO 25 mg Q6H PRN Administration Itching Hydromorphone HCl 0.5 mg 01/15/20 00:00 01/15/20 01:15 Hydromorphone Hcl 0.5 Mg/0.5 Ml Syringe IVPUSH 0.5 mg Q3H PRN Administration Pain, Severe (Pain Scale 7-10) Sodium Chloride 1,000 mls @ 75 mls/hr 01/16/20 08:00 01/17/20 11:02 Ns IVCONT Not Given .[id number] DIO Ondansetron HCl 4 mg 01/15/20 00:00 01/15/20 13:01 Ondansetron Hcl 4 Mg/2 Ml Vial IVPUSH 4 mg Q8H PRN Administration Nausea and Vomiting Oxycodone HCl 10 mg 01/15/20 09:00 01/17/20 09:33 Oxycodone Hcl Er 10 Mg Tab.Er.12h PO 10 mg BID DIO Administration Pantoprazole Sodium 40 mg 01/16/20 06:30 01/17/20 05:53 Pantoprazole Sodium 40 Mg/10 Ml Vial IVPUSH 40 mg BID@0630,1630 DIO Administration Polyethylene Glycol 17 gm 01/16/20 09:00 01/17/20 09:33 Polyethylene Glycol 3350 17 Gm Powd.Pack PO 17 gm DAILY DIO Administration Senna/Docusate Sodium 1 tab 01/15/20 00:00 01/17/20 02:42 Sennosides/Docusate Sodium Tablet PO 1 tab BEDTIME PRN Administration Constipation Labs CBC & Chem 7: 01/17/20 06:35 01/16/20 08:15 Labs: Laboratory Results - last 24 hr 01/16/20 01/17/20 11:07 06:35 MCV 94.0 MCH 29.9 MCHC 31.8 RDW 13.4 Plt Count 162 MPV 11.3 Immature Gran % (Auto) 0.7 H Neut % (Auto) 59.9 Lymph % (Auto) 22.5 [place] % (Auto) 12.9 H Eos % (Auto) 3.5 Baso % (Auto) 0.5 Neut # (Auto) 4.6 Lymph # (Auto) 1.7 [place] # (Auto) 1.0 Eos # (Auto) 0.3 Baso # (Auto) 0.0 Abs Immat Gran (auto) 0.05 H Absolute Nucleated RBC 0.000 Nucleated RBC % (auto) 0.0 Blood Type O Positive Antibody Screen NEGATIVE Crossmatch See Detail Quality VTE Deep Vein Thrombosis/Pulmonary Embolism Present on Admission: No Assessment and Plan (1) Status post total right knee replacement: Status: Acute (2) Nausea & vomiting: Status: Acute (3) Abdominal pain: Status: Acute (4) Diabetes mellitus: Status: Acute (5) Sleep apnea: Status: Acute (6) Low grade fever: Status: Acute (7) Leukocytosis: Status: Acute Assessment and Plan: status post knee surgery management per Ortho Nausea vomiting and abdominal pain recent history of gastric sleeve surgery hemoglobin dropped from 9-7 rule out GI bleed likely gastritis secondary to Toradolr/o gi bleed status post 2 units of PRBCs seen by gastroenterology recommended continue IV PPI Hold Toradol supportive management stool for occult blood pending GI planning for EGD on Sunday Acute blood loss anemia likely postop given epigastric pain and nausea will rule out GI bleed hemoglobin dropped from 9-7 status post 2 units of PRBC hemoglobin improved to 8.8 today monitor H&H closely hypotension likely secondary to dehydration from nausea and vomiting, rule out GI bleed resolved continue IV fluid since patient has poor p.o. intake monitor blood pressure monitor blood pressure closely Diabetes mellitus continue insulin monitor blood glucose continue CPAP at night fever resolved UA and chest x-ray unremarkable sepsis less likely leukocytosis trending down History of DVT Eliquis on hold for anemia and drop in h/h continue venodyne
[2020-01-17] MEDS: HYDROcodone Bit/Acetam 5/325 TABLET 1 TAB PO (12:46)
[2020-01-17] MEDS: HYDROmorphone HCl 0.5 MG/0.5 ML SYRINGE IVPUSH (20:03)
[2020-01-17 20:34] LABS: OBS Int Ctl Valid YES; OBS1 POS (NEG)
[2020-01-18] VITALS (8 sets, daily range): BP systolic 103–155; BP diastolic 51–76; PULSE 72–94; RESP 16–22; TEMP 36.1–36.7; O2SAT 2–95
[2020-01-18] MEDS: HYDROcodone Bit/Acetam 5/325 TABLET 1 TAB PO ×2 (00:40→12:30)
[2020-01-18] MEDS: Pantoprazole Sodium 40 MG/10 ML VIAL IVPUSH ×2 (05:32→15:53)
[2020-01-18] MEDS: 0.9 % Sodium Chloride 1,000 ML 75 ML IVCONT ×2 (05:33→18:35)
[2020-01-18] MEDS: HYDROmorphone HCl 0.5 MG/0.5 ML SYRINGE IVPUSH ×2 (06:38→18:34)
[2020-01-18] MEDS: Acetaminophen 325 MG TABLET 650 MG PO ×3 (07:21→19:47)
[2020-01-18 07:39] LABS: MANUAL DIFF FLAG NO
[2020-01-18 07:42] LABS: Basophils Percent Auto 0.5 % (0-2); Eosinophils Absolute Auto 0.2 X10*3/uL (0.0-0.4); Hematocrit 30.5 % (37-47); Hemoglobin 9.6 g/dl (12.0-16.0); Imm Gran Abs Auto 0.05 X10*3/uL (0.00-0.03); Imm Gran Pct Auto 0.6 % (0.0-0.4); Lymphocytes Absolute Auto 1.5 X10*3/uL (1.2-4.9); Lymphocytes Percent Auto 18.5 % (20-40); Mean Corpuscular HGB Conc 31.5 g/dl (31.0-35.0); Mean Corpuscular Hemoglobin 29.6 pg (27.0-33.0); Mean Corpuscular Volume 94.1 fL (80-98); Mean Platelet Volume 10.9 fL (9.4-12.3); Monocytes Percent Auto 12.7 % (2-11); Neutrophils Absolute Auto 5.3 X10*3/uL (2.0-8.3); Neutrophils Percent Auto 64.7 % (45-73); Platelet Count 205 X10*3/uL (160-400); Red Blood Count 3.24 X10*6/uL (4.20-5.50); Red Cell Distribution Width 13.7 % (11.0-16.0); White Blood Count 8.1 X10*3/uL (4.8-10.8)
[2020-01-18] MEDS: polyethylene glycoL 3350 17 GM POWD.PACK PO (08:52)
[2020-01-18] MEDS: oxyCODONE HCl ER 10 MG TAB.ER.12H PO ×2 (08:52→21:46)
[2020-01-18 08:56] LABS: Anion Gap 11 (12-20); Blood Urea Nitrogen 10 mg/dL (9-16); Calcium 8.4 mg/dL (8.4-10.2); Carbon Dioxide 30 mmol/L (22-29); Chloride 106 mmol/L (96-108); Creatinine Clr Calc Pharmacy 91.9; Estimated Glomerular Filt Rate > 60; Glucose Random 95 mg/dL (60-115); Potassium 3.9 mmol/l (3.3-5.1); Sodium 143 mmol/L (135-145)
--- NOTE | 2020-01-18 12:24 | HO.PM.IMPN ---
Subjective Subjective Interval History: patient seen and examined at bedside patient denies any abdominal discomfort reporting knee pain denies any dizziness Physical Exam Vital Signs and I&O and Narrative: Vital Signs and I&O: Vital Signs Temp 97.3 F 01/18/20 07:40 Pulse 90 01/18/20 07:40 Resp 22 H 01/18/20 07:40 BP 126/59 L 01/18/20 07:40 Pulse Ox 95 01/18/20 07:40 Intake & Output 01/17/20 01/18/20 01/18/20 18:59 06:59 18:59 Intake Total 1295 / 2418 1123 / 2418 Output Total 400 / 400 Balance 2017 Urine Output (Aver age ml/kg/hr) 0.34 0.34 Intake: Intake, Oral [place] unt 300 / 423 123 / 423 Intake, IV Amoun t 1994 0.9 % Sodium C hloride 1,000 ml 1994 @ 75 mls/hr IV CONT .[id number] [facility] Rx#:[id number] Output: Output, Urine Am ount 400 / 400 Other: NPO Yes: CLEAR LIQUID TRIAL Breakfast % Eate n 75% Lunch % Eaten 75% Dinner % Eaten 75% Number of Incont inent Voids 2 Number of Unmeas ured Voids 2 Number of Bowel Movements 1 Urine Bathroom Urine Color Kathi Last Bowel Movem ent 01/17/20 Stool Bathroom Body Mass Index 41.1 Const: General: comfortable Resp: Effort & Inspection: normal respiratory effort Cardio: Jugular venous distension: no JVD GI: Inspection: Yes normal to inspection Skin: General skin exam: no rashes or lesions noted Objective Data Current Medications Generic Name Dose Route Start Last Admin Trade Name Freq PRN Reason Stop Dose Admin Acetaminophen 650 mg 01/15/20 01:00 01/18/20 07:21 Acetaminophen 325 Mg Tablet PO 650 mg Q6H DIO Administration Hydrocodone Bitart/Acetaminophen 1 tab 01/17/20 10:38 01/18/20 00:40 Hydrocodone Bit/Acetam 5/325 Tablet PO 1 tab Q4H PRN Administration Pain, Moderate (Pain Scale 4-6 Al Hydroxide/Mg Hydroxide 15 ml 01/15/20 17:30 01/16/20 01:53 Magnesium Hydrox/Alum Hydrox 30 Ml Oral.Susp PO 15 ml Q4H PRN Administration GI Upset Diphenhydramine HCl 25 mg 01/15/20 19:06 01/17/20 21:31 Diphenhydramine Hcl 25 Mg Tablet PO 25 mg Q6H PRN Administration Itching Hydromorphone HCl 0.5 mg 01/17/20 12:57 01/18/20 06:38 Hydromorphone Hcl 0.5 Mg/0.5 Ml Syringe IVPUSH 0.5 mg Q6H PRN Administration Pain, Severe (Pain Scale 7-10) Sodium Chloride 1,000 mls @ 75 mls/hr 01/16/20 08:00 01/18/20 05:33 Ns IVCONT 75 mls/hr .[id number] DIO Administration Ondansetron HCl 4 mg 01/15/20 00:00 01/15/20 13:01 Ondansetron Hcl 4 Mg/2 Ml Vial IVPUSH 4 mg Q8H PRN Administration Nausea and Vomiting Oxycodone HCl 10 mg 01/15/20 09:00 01/18/20 08:52 Oxycodone Hcl Er 10 Mg Tab.Er.12h PO 10 mg BID DIO Administration Pantoprazole Sodium 40 mg 01/16/20 06:30 01/18/20 05:32 Pantoprazole Sodium 40 Mg/10 Ml Vial IVPUSH 40 mg BID@0630,1630 DIO Administration Polyethylene Glycol 17 gm 01/16/20 09:00 01/18/20 08:52 Polyethylene Glycol 3350 17 Gm Powd.Pack PO 17 gm DAILY DIO Administration Senna/Docusate Sodium 1 tab 01/15/20 00:00 01/17/20 02:42 Sennosides/Docusate Sodium Tablet PO 1 tab BEDTIME PRN Administration Constipation Labs CBC & Chem 7: 01/18/20 07:18 01/18/20 07:18 Labs: Laboratory Results - last 24 hr 01/17/20 01/18/20 01/18/20 19:54 07:18 07:18 MCV 94.1 MCH 29.6 MCHC 31.5 RDW 13.7 Plt Count 205 D MPV 10.9 Immature Gran % (Auto) 0.6 H Neut % (Auto) 64.7 Lymph % (Auto) 18.5 L [place] % (Auto) 12.7 H Eos % (Auto) 3.0 Baso % (Auto) 0.5 Neut # (Auto) 5.3 Lymph # (Auto) 1.5 [place] # (Auto) 1.0 Eos # (Auto) 0.2 Baso # (Auto) 0.0 Abs Immat Gran (auto) 0.05 H Absolute Nucleated RBC 0.000 Nucleated RBC % (auto) 0.0 Anion Gap 11 L Estim Creat Clear Calc 91.9 Estimated GFR > 60 Random Glucose 95 Calcium 8.4 Stool Collect Date 01/17/20 Stool Occult Blood POS Quality VTE Deep Vein Thrombosis/Pulmonary Embolism Present on Admission: No Assessment and Plan (1) Status post total right knee replacement: Status: Acute (2) Nausea & vomiting: Status: Acute (3) Abdominal pain: Status: Acute (4) Diabetes mellitus: Status: Acute (5) Sleep apnea: Status: Acute (6) Low grade fever: Status: Acute (7) Leukocytosis: Status: Acute Assessment and Plan: status post knee surgery management per Ortho Nausea vomiting and abdominal pain likely secondary to gastritis recent history of gastric sleeve surgery hemoglobin dropped from 9-7 stool for occult blood positive status post 2 units of PRBCs seen by gastroenterology recommended continue IV PPI Hold Toradol supportive managemen GI planning for EGD on Sunday Acute blood loss anemia likely postop and possible GI bleed stool for occult blood positive hemoglobin dropped from 9-7 status post 2 units of PRBC hemoglobin improved to 9 today monitor H&H closely hypotension likely secondary to dehydration from nausea and vomiting and blood loss anemia monitor blood pressure closely Diabetes mellitus continue insulin monitor blood glucose continue CPAP at night fever resolved UA and chest x-ray unremarkable sepsis less likely leukocytosis trending down History of DVT Eliquis on hold for anemia and drop in h/h continue venodyne DVT prophylaxis Venodyne boot given anemia requiring transfusion Eliquis on hold
--- NOTE | 2020-01-18 18:12 | PM.PNORT ---
Subjective Subjective Principal diagnosis: s/p Rt TKA Interval history: POD 5 s/p RT TKA No overnight events, resting in bed. States her pain is manageble, the switch to vicodin helped get rid of the itching. She denies cp, dizziness, sob or epigastric pain. Physical Exam Vital Signs and I&O and Narrative: Vital Signs and I&O: Vital Signs Temp 97.5 F 01/18/20 16:00 Pulse 72 01/18/20 16:00 Resp 18 01/18/20 16:00 BP 116/60 01/18/20 16:00 Pulse Ox 95 01/18/20 16:00 Intake & Output 01/17/20 01/18/20 01/18/20 18:59 06:59 18:59 Intake Total 1295 / 2418 1123 / 2418 960 / 960 Output Total 400 / 400 Balance 2017 960 / 960 Urine Output (Aver age ml/kg/hr) 0.34 0.34 0.34 Intake: Intake, Oral [place] unt 300 / 423 123 / 423 960 / 960 Intake, IV Amoun t 1994 0.9 % Sodium C hloride 1,000 ml 1994 @ 75 mls/hr IV CONT .[id number] [facility] Rx#:[id number] Output: Output, Urine Am ount 400 / 400 Other: Meal Refused Yes NPO Yes: CLEAR LIQUID TRIAL Breakfast % Eate n 75% 50% Lunch % Eaten 75% 75% Dinner % Eaten 75% Number of Incont inent Voids 2 Number of Unmeas ured Voids 2 Number of Bowel Movements 1 Urine Bathroom Urine Color Kathi Last Bowel Movem ent 01/17/20 Stool Bathroom Body Mass Index 41.1 Const: General: cooperative, healthy appearing and no acute distress Resp: Effort & Inspection: normal respiratory effort and able to speak in complete sentences Cardio: Rate: regular rate Peripheral pulses: Peripheral pulses 2+ throughout GI: Inspection: Yes normal to inspection Palpation (GI): Soft to palpation Skin: General skin exam: no rashes or lesions noted Extrem: Other: Incision intact, no erythema, mild edema, bruising around the knee. Calf supple non tender. Progress Note: A&P Assessment and plan (1) Status post total right knee replacement: Status: Acute Assessment and Plan: Cont. pain managment PT for RT TKA compression devices dispo planning-pending EGD results / med clearance Fall Risk Details Current Medications: Current Medications Generic Name Dose Route Start Last Admin Trade Name Freq PRN Reason Stop Dose Admin Acetaminophen 650 mg 01/15/20 01:00 01/18/20 14:04 Acetaminophen 325 Mg Tablet PO 650 mg Q6H DIO Administration Hydrocodone Bitart/Acetaminophen 1 tab 01/17/20 10:38 01/18/20 12:30 Hydrocodone Bit/Acetam 5/325 Tablet PO 1 tab Q4H PRN Administration Pain, Moderate (Pain Scale 4-6 Al Hydroxide/Mg Hydroxide 15 ml 01/15/20 17:30 01/16/20 01:53 Magnesium Hydrox/Alum Hydrox 30 Ml Oral.Susp PO 15 ml Q4H PRN Administration GI Upset Diphenhydramine HCl 25 mg 01/15/20 19:06 01/17/20 21:31 Diphenhydramine Hcl 25 Mg Tablet PO 25 mg Q6H PRN Administration Itching Hydromorphone HCl 0.5 mg 01/17/20 12:57 01/18/20 06:38 Hydromorphone Hcl 0.5 Mg/0.5 Ml Syringe IVPUSH 0.5 mg Q6H PRN Administration Pain, Severe (Pain Scale 7-10) Sodium Chloride 1,000 mls @ 75 mls/hr 01/16/20 08:00 01/18/20 14:05 Ns IVCONT Not Given .[id number] DIO Ondansetron HCl 4 mg 01/15/20 00:00 01/15/20 13:01 Ondansetron Hcl 4 Mg/2 Ml Vial IVPUSH 4 mg Q8H PRN Administration Nausea and Vomiting Oxycodone HCl 10 mg 01/15/20 09:00 01/18/20 08:52 Oxycodone Hcl Er 10 Mg Tab.Er.12h PO 10 mg BID DIO Administration Pantoprazole Sodium 40 mg 01/16/20 06:30 01/18/20 15:53 Pantoprazole Sodium 40 Mg/10 Ml Vial IVPUSH 40 mg BID@0630,1630 DIO Administration Polyethylene Glycol 17 gm 01/16/20 09:00 01/18/20 08:52 Polyethylene Glycol 3350 17 Gm Powd.Pack PO 17 gm DAILY DIO Administration Senna/Docusate Sodium 1 tab 01/15/20 00:00 01/17/20 02:42 Sennosides/Docusate Sodium Tablet PO 1 tab BEDTIME PRN Administration Constipation Time Spent With Patient Time: Total time spent is greater than 50% in coordination of care (as documented) at patient's floor/unit and/or counseling patient: Time with patient: 15 - 24 minutes Progress Note: Quality VTE Deep Vein Thrombosis/Pulmonary Embolism Present on Admission: No
[2020-01-18] MEDS: diphenhydrAMINE HCL 25 MG TABLET PO (23:25)
[2020-01-19] VITALS (19 sets, daily range): BP systolic 112–183; BP diastolic 59–95; PULSE 60–98; RESP 16–20; TEMP 36.3–37.4; O2SAT 91–98
[2020-01-19] MEDS: HYDROmorphone HCl 0.5 MG/0.5 ML SYRINGE IVPUSH ×2 (01:34→10:10)
[2020-01-19] MEDS: HYDROcodone Bit/Acetam 5/325 TABLET 1 TAB PO (04:42)
[2020-01-19 06:29] LABS: MANUAL DIFF FLAG NO
[2020-01-19 06:42] LABS: Basophils Absolute Auto 0.1 X10*3/uL (0.0-0.2); Basophils Percent Auto 0.7 % (0-2); Eosinophils Absolute Auto 0.3 X10*3/uL (0.0-0.4); Eosinophils Percent Auto 3.7 % (0-4); Hematocrit 32.7 % (37-47); Hemoglobin 10.4 g/dl (12.0-16.0); Imm Gran Abs Auto 0.06 X10*3/uL (0.00-0.03); Imm Gran Pct Auto 0.7 % (0.0-0.4); Lymphocytes Percent Auto 24.5 % (20-40); Mean Corpuscular HGB Conc 31.8 g/dl (31.0-35.0); Mean Corpuscular Hemoglobin 29.7 pg (27.0-33.0); Mean Corpuscular Volume 93.4 fL (80-98); Mean Platelet Volume 10.7 fL (9.4-12.3); Monocytes Percent Auto 12.2 % (2-11); Neutrophils Absolute Auto 4.7 X10*3/uL (2.0-8.3); Neutrophils Percent Auto 58.2 % (45-73); Platelet Count 269 X10*3/uL (160-400); Red Cell Distribution Width 13.7 % (11.0-16.0)
[2020-01-19] MEDS: 0.9 % Sodium Chloride 1,000 ML 75 ML IVCONT ×3 (06:51→22:00)
[2020-01-19 07:04] LABS: Anion Gap 12 (12-20); Blood Urea Nitrogen 7 mg/dL (9-16); Calcium 8.7 mg/dL (8.4-10.2); Carbon Dioxide 29 mmol/L (22-29); Chloride 106 mmol/L (96-108); Creatinine Clr Calc Pharmacy 89.1; Estimated Glomerular Filt Rate > 60; Glucose Random 104 mg/dL (60-115); Potassium 4.1 mmol/l (3.3-5.1); Sodium 143 mmol/L (135-145)
[2020-01-19] MEDS: Acetaminophen 325 MG TABLET 650 MG PO ×2 (07:41→18:24)
[2020-01-19] MEDS: oxyCODONE HCl ER 10 MG TAB.ER.12H PO ×2 (08:33→22:10)
--- NOTE | 2020-01-19 09:35 | P.PNIM_ITS ---
Subjective Subjective Interval History: Seen and examined. Reports min abdominal pain denies sob or cough Physical Exam Vital Signs and I&O and Narrative: Vital Signs and I&O: Vital Signs Temp 97.8 F 01/19/20 08:00 Pulse 87 01/19/20 08:00 Resp 20 01/19/20 07:22 BP 121/60 01/19/20 08:00 Pulse Ox 92 01/19/20 08:00 Intake & Output 01/18/20 01/19/20 01/19/20 18:59 06:59 18:59 Intake Total 2177.5 / 3337.5 1160 / 3337.5 Output Total 700 / 700 Balance 2177.5 / 2637.5 460 / 2637.5 Urine Output (Aver age ml/kg/hr) 0.59 0.59 Intake: Intake, Oral Brandon unt 1200 / 1440 240 / 1440 Intake, IV Amoun t 977.5 / 1897.5 920 / 1897.5 0.9 % Sodium C hloride 1,000 ml 977.5 / 1897.5 920 / 1897.5 @ 75 mls/hr IV CONT .[id number] [facility] Rx#:[id number] Output: Output, Urine Am ount 700 / 700 Other: Meal Refused Yes NPO Yes Breakfast % Eate n 50% Lunch % Eaten 75% Dinner % Eaten 100% Number of Incont inent Voids 300 Urine Bathroom Urine Color Yellow Body Mass Index 41.1 Const: General: comfortable and no acute distress Orientation/consciousness: patient oriented x3 Resp: Effort & Inspection: normal respiratory effort Auscultation: clear to auscultation bilaterally Cardio: Rate: regular rate Heart sounds: S1 normal heart sound present and S2 normal heart sound present GI: Inspection: Yes normal to inspection Palpation (GI): Soft to palpation and nontender Skin: General skin exam: no rashes or lesions noted Neuro: General: patient oriented x3 Extrem: Right lower extremity: normal to inspection, full ROM and normal capillary refill Objective Data Current Medications Generic Name Dose Route Start Last Admin Trade Name Freq PRN Reason Stop Dose Admin Acetaminophen 650 mg 01/15/20 01:00 01/19/20 07:41 Acetaminophen 325 Mg Tablet PO 650 mg Q6H DIO Administration Hydrocodone Bitart/Acetaminophen 1 tab 01/17/20 10:38 01/19/20 04:42 Hydrocodone Bit/Acetam 5/325 Tablet PO 1 tab Q4H PRN Administration Pain, Moderate (Pain Scale 4-6 Al Hydroxide/Mg Hydroxide 15 ml 01/15/20 17:30 01/16/20 01:53 Magnesium Hydrox/Alum Hydrox 30 Ml Oral.Susp PO 15 ml Q4H PRN Administration GI Upset Diphenhydramine HCl 25 mg 01/15/20 19:06 01/18/20 23:25 Diphenhydramine Hcl 25 Mg Tablet PO 25 mg Q6H PRN Administration Itching Hydromorphone HCl 0.5 mg 01/17/20 12:57 01/19/20 01:34 Hydromorphone Hcl 0.5 Mg/0.5 Ml Syringe IVPUSH 0.5 mg Q6H PRN Administration Pain, Severe (Pain Scale 7-10) Sodium Chloride 1,000 mls @ 75 mls/hr 01/19/20 08:30 01/19/20 08:35 Ns IVCONT 75 mls/hr .[id number] DIO Administration Ondansetron HCl 4 mg 01/15/20 00:00 01/15/20 13:01 Ondansetron Hcl 4 Mg/2 Ml Vial IVPUSH 4 mg Q8H PRN Administration Nausea and Vomiting Oxycodone HCl 10 mg 01/15/20 09:00 01/19/20 08:33 Oxycodone Hcl Er 10 Mg Tab.Er.12h PO 10 mg BID DIO Administration Polyethylene Glycol 17 gm 01/16/20 09:00 01/19/20 08:36 Polyethylene Glycol 3350 17 Gm Powd.Pack PO Not Given DAILY DIO Senna/Docusate Sodium 1 tab 01/15/20 00:00 01/17/20 02:42 Sennosides/Docusate Sodium Tablet PO 1 tab BEDTIME PRN Administration Constipation Labs CBC & Chem 7: 01/19/20 06:07 01/19/20 06:07 Labs: Laboratory Results - last 24 hr 01/19/20 01/19/20 06:07 06:07 MCV 93.4 MCH 29.7 MCHC 31.8 RDW 13.7 Plt Count 269 D MPV 10.7 Immature Gran % (Auto) 0.7 H Neut % (Auto) 58.2 Lymph % (Auto) 24.5 [place] % (Auto) 12.2 H Eos % (Auto) 3.7 Baso % (Auto) 0.7 Neut # (Auto) 4.7 Lymph # (Auto) 2.0 [place] # (Auto) 1.0 Eos # (Auto) 0.3 Baso # (Auto) 0.1 Abs Immat Gran (auto) 0.06 H Absolute Nucleated RBC 0.000 Nucleated RBC % (auto) 0.0 Anion Gap 12 Estim Creat Clear Calc 89.1 Estimated GFR > 60 Random Glucose 104 Calcium 8.7 Progress Note: A&P (1) Status post total right knee replacement: Status: Acute Assessment and Plan: This is a 69-year-old female with a past medical history of diabetes, previous DVT on Eliquis, osteoarthritis who was admitted for elective TKA. Her hospital course has been further complicated by acute blood loss anemia, possible gastritis. 1. Acute blood loss anemia, ? Gastritis Question postop verses gastrointestinal loss Status post 2 units packed red cells, H&H stable anticoagulation on hold continue IV PPI GI on board plan for endoscopy today 2.Hypotension Likely hypovolemic and now normalized Monitor closely 3. isolated low-grade temperature Infectious workup negative to date Afebrile greater than 72 hours at this point Continue to monitor Likely postop related 4. diabetes mellitus Continue with point of cares and sliding scale coverage as needed 5. history of DVT Eliquis on hold until evaluation of GI bleed completed Continue with boot for the time being 6. S/P R TKA mgmt per ortho Will Follow along Quality VTE Deep Vein Thrombosis/Pulmonary Embolism Present on Admission: No
[2020-01-19] MEDS: Pantoprazole Sodium 40 MG/10 ML VIAL IVPUSH (10:10)
--- NOTE | 2020-01-19 11:58 | MHC.CM.PN ---
PATIENT IS HOPING TO RETURN HOME TODAY AFTER ENDOSCOPY. SURGICAL PA MADE AWARE. IMM 01/18 IN CHART
--- NOTE | 2020-01-19 13:18 | HO.ANESPROP2 ---
[facility] Family History Family History (Updated 01/14/20 @ 13:14 by LATISHA Tran) Daughter No problems noted. Son No problems noted. Surgical History Surgical History Hx of laparoscopic gastric banding Status post total right knee replacement Social History Social History service: No Current occupational status: retired Meds Allergies Allergy/AdvReac Type Severity Reaction Status Date / Time enoxaparin [From LOVENOX] Allergy Severe SEVERE Verified 01/16/20 18:37 RASH/ITCHING-ABDOMEN morphine [MORPHINE] Allergy Severe ITCHING, Verified 01/16/20 18:37 itchy Home Medications Medication Instructions Recorded Confirmed Type apixaban 5 mg tablet 5 mg PO BID 01/14/20 01/14/20 History gabapentin 600 mg tablet 600 mg PO BID 01/14/20 01/14/20 History metformin 1,000 mg PO BIDWM 01/14/20 01/14/20 History sennosides 8.6 mg-docusate sodium 2 tab PO BID 01/14/20 01/14/20 History 50 mg tablet Exam Exam Date and Time: January 19, 2020 1318 Height,Weight and Vital Signs: Height 5 ft 1 in Weight 98.6 kg Last Vital Signs Temp 98 F 01/19/20 11:39 Pulse 80 01/19/20 11:39 Resp 20 01/19/20 11:39 BP 112/59 L 01/19/20 11:39 Pulse Ox 95 01/19/20 11:39 Pertinent Lab Results Pertinent Lab Results: Laboratory Tests 01/15/20 01/15/20 01/15/20 06:00 06:00 12:32 WBC 12.0 H RBC 3.12 L Hgb 9.1 L Hct 28.9 L MCV 92.6 MCH 29.2 MCHC 31.5 RDW 13.2 Plt Count 167 MPV 12.1 Immature Gran % (Auto) 0.4 Neut % (Auto) 69.3 Lymph % (Auto) 16.0 L [place] % (Auto) 11.4 H Eos % (Auto) 2.6 Baso % (Auto) 0.3 Neut # (Auto) 8.3 Lymph # (Auto) 1.9 [place] # (Auto) 1.4 H Eos # (Auto) 0.3 Baso # (Auto) 0.0 Abs Immat Gran (auto) 0.05 H Absolute Nucleated RBC 0.000 Nucleated RBC % (auto) 0.0 Sodium 137 Potassium 3.7 Chloride 101 Carbon Dioxide 31 H Anion Gap 9 L BUN 14 Creatinine 0.77 Estim Creat Clear Calc 75.1 Estimated GFR > 60 POC Glucose 115 Random Glucose 132 H Calcium 8.4 Urine Color Urine Appearance Urine pH Ur Specific [place] Urine Protein Urine Glucose (UA) Urine Ketones Urine Blood Urine Nitrite Ur Leukocyte Esterase Stool Collect Date Stool Occult Blood Blood Type Antibody Screen Crossmatch 01/15/20 01/16/20 01/16/20 14:42 05:57 08:15 WBC 9.3 9.0 RBC 2.64 L 2.58 L Hgb 7.7 L 7.7 L Hct 24.6 L 24.0 L MCV 93.2 93.0 MCH 29.2 29.8 MCHC 31.3 32.1 RDW 13.2 13.2 Plt Count 138 L 135 L MPV 12.1 12.1 Immature Gran % (Auto) 0.4 0.3 Neut % (Auto) 66.0 68.0 Lymph % (Auto) 21.3 17.9 L [place] % (Auto) 9.1 10.5 Eos % (Auto) 2.6 3.0 Baso % (Auto) 0.6 0.3 Neut # (Auto) 6.2 6.1 Lymph # (Auto) 2.0 1.6 [place] # (Auto) 0.9 0.9 Eos # (Auto) 0.2 0.3 Baso # (Auto) 0.1 0.0 Abs Immat Gran (auto) 0.04 H 0.03 Absolute Nucleated RBC 0.000 0.000 Nucleated RBC % (auto) 0.0 0.0 Sodium Potassium Chloride Carbon Dioxide Anion Gap BUN Creatinine Estim Creat Clear Calc Estimated GFR POC Glucose Random Glucose Calcium Urine Color YELLOW Urine Appearance HAZY Urine pH 5.5 Ur Specific [place] 1.025 Urine Protein TRACE Urine Glucose (UA) NEG Urine Ketones NEG Urine Blood NEG Urine Nitrite NEG Ur Leukocyte Esterase NEG Stool Collect Date Stool Occult Blood Blood Type Antibody Screen Crossmatch 01/16/20 01/16/20 01/17/20 08:15 11:07 06:35 WBC 7.7 RBC 2.98 L Hgb 8.9 L Hct 28.0 L MCV 94.0 MCH 29.9 MCHC 31.8 RDW 13.4 Plt Count 162 MPV 11.3 Immature Gran % (Auto) 0.7 H Neut % (Auto) 59.9 Lymph % (Auto) 22.5 [place] % (Auto) 12.9 H Eos % (Auto) 3.5 Baso % (Auto) 0.5 Neut # (Auto) 4.6 Lymph # (Auto) 1.7 [place] # (Auto) 1.0 Eos # (Auto) 0.3 Baso # (Auto) 0.0 Abs Immat Gran (auto) 0.05 H Absolute Nucleated RBC 0.000 Nucleated RBC % (auto) 0.0 Sodium 137 Potassium 3.8 Chloride 102 Carbon Dioxide 30 H Anion Gap 9 L BUN 20 H Creatinine 0.92 Estim Creat Clear Calc 62.9 Estimated GFR > 60 POC Glucose Random Glucose 106 Calcium 8.1 L Urine Color Urine Appearance Urine pH Ur Specific [place] Urine Protein Urine Glucose (UA) Urine Ketones Urine Blood Urine Nitrite Ur Leukocyte Esterase Stool Collect Date Stool Occult Blood Blood Type O Positive Antibody Screen NEGATIVE Crossmatch See Detail 01/17/20 01/18/20 01/18/20 19:54 07:18 07:18 WBC 8.1 RBC 3.24 L Hgb 9.6 L Hct 30.5 L MCV 94.1 MCH 29.6 MCHC 31.5 RDW 13.7 Plt Count 205 D MPV 10.9 Immature Gran % (Auto) 0.6 H Neut % (Auto) 64.7 Lymph % (Auto) 18.5 L [place] % (Auto) 12.7 H Eos % (Auto) 3.0 Baso % (Auto) 0.5 Neut # (Auto) 5.3 Lymph # (Auto) 1.5 [place] # (Auto) 1.0 Eos # (Auto) 0.2 Baso # (Auto) 0.0 Abs Immat Gran (auto) 0.05 H Absolute Nucleated RBC 0.000 Nucleated RBC % (auto) 0.0 Sodium 143 Potassium 3.9 Chloride 106 Carbon Dioxide 30 H Anion Gap 11 L BUN 10 Creatinine 0.63 Estim Creat Clear Calc 91.9 Estimated GFR > 60 POC Glucose Random Glucose 95 Calcium 8.4 Urine Color Urine Appearance Urine pH Ur Specific [place] Urine Protein Urine Glucose (UA) Urine Ketones Urine Blood Urine Nitrite Ur Leukocyte Esterase Stool Collect Date 01/17/20 Stool Occult Blood POS Blood Type Antibody Screen Crossmatch 01/19/20 01/19/20 06:07 06:07 WBC 8.0 RBC 3.50 L Hgb 10.4 L Hct 32.7 L MCV 93.4 MCH 29.7 MCHC 31.8 RDW 13.7 Plt Count 269 D MPV 10.7 Immature Gran % (Auto) 0.7 H Neut % (Auto) 58.2 Lymph % (Auto) 24.5 [place] % (Auto) 12.2 H Eos % (Auto) 3.7 Baso % (Auto) 0.7 Neut # (Auto) 4.7 Lymph # (Auto) 2.0 [place] # (Auto) 1.0 Eos # (Auto) 0.3 Baso # (Auto) 0.1 Abs Immat Gran (auto) 0.06 H Absolute Nucleated RBC 0.000 Nucleated RBC % (auto) 0.0 Sodium 143 Potassium 4.1 Chloride 106 Carbon Dioxide 29 Anion Gap 12 BUN 7 L Creatinine 0.65 Estim Creat Clear Calc 89.1 Estimated GFR > 60 POC Glucose Random Glucose 104 Calcium 8.7 Urine Color Urine Appearance Urine pH Ur Specific [place] Urine Protein Urine Glucose (UA) Urine Ketones Urine Blood Urine Nitrite Ur Leukocyte Esterase Stool Collect Date Stool Occult Blood Blood Type Antibody Screen Crossmatch Airway Mallampati Class: II TM Dist: <=3cm Neck ROM: Full Partial: Lower Heart: RRR Lungs: CTA Assessment and Plan Assessment Anesthesia Assessment: Anesthesia Plan Discussed and Consent Obtained Final Anesthetic Review NPO: Yes ASA Class: III Final Preanesthetic Review: No Changes in Pt Med Stat, Meds & Allergies Reviewed and Consent Obtained/Reviewed Patient Risk: Intermediate Procedure Risk: Low Anesthetic Plan Anesthetic Plan: MAC: Disposition: Standard PACU
--- NOTE | 2020-01-19 13:51 | MHC.SHP ---
Surgical H&P Section A The patient is an INPATIENT: Yes The History & Physical has been completed within 30 days and I have reviewed it.: Yes Section B Chief Complaint: OSTEOARTHRITIS RIGHT KNEE Allergies: Allergies Allergy/AdvReac Type Severity Reaction Status Date / Time enoxaparin [From LOVENOX] Allergy Severe SEVERE Verified 01/16/20 18:37 RASH/ITCHING-ABDOMEN morphine [MORPHINE] Allergy Severe ITCHING, Verified 01/16/20 18:37 itchy Plan Patient has been examined and remains a candidate for the planned procedure
--- NOTE | 2020-01-19 14:26 | P.PNOP_ITS ---
Subjective Subjective Principal diagnosis: s/p Rt TKA Interval history: Postop day 6 status post right total knee arthroplasty. Patient states her right knee is somewhat uncomfortable. She is tolerating medications okay. She is scheduled for an EGD today. Physical Exam Vital Signs and I&O and Narrative: Vital Signs and I&O: Vital Signs Temp 99.4 F 01/19/20 14:05 Pulse 86 01/19/20 14:05 Resp 18 01/19/20 14:05 BP 183/95 H 01/19/20 14:05 Pulse Ox 97 01/19/20 14:05 Intake & Output 01/18/20 01/19/20 01/19/20 18:59 06:59 18:59 Intake Total 2177.5 / 3337.5 1160 / 3337.5 Output Total 700 / 700 Balance 2177.5 / 2637.5 460 / 2637.5 Urine Output (Aver age ml/kg/hr) 0.59 0.59 Intake: Intake, Oral [place] unt 1200 / 1440 240 / 1440 Intake, IV Amoun t 977.5 / 1897.5 920 / 1897.5 0.9 % Sodium C hloride 1,000 ml 977.5 / 1897.5 920 / 1897.5 @ 75 mls/hr IV CONT .[id number] [facility] Rx#:[id number] Output: Output, Urine Am ount 700 / 700 Other: Meal Refused Yes NPO Yes Breakfast % Eate n 50% Lunch % Eaten 75% Dinner % Eaten 100% Number of Incont inent Voids 300 Urine Bathroom Urine Color Yellow Body Mass Index 41.1 Const: General: cooperative, healthy appearing and no acute distress Resp: Effort & Inspection: normal respiratory effort and able to speak in complete sentences Cardio: Rate: regular rate Peripheral pulses: Peripheral pulses 2+ throughout GI: Inspection: Yes normal to inspection Palpation (GI): Soft to palpation Skin: General skin exam: no rashes or lesions noted Extrem: Other: Right knee incision clean dry and intact. There is no erythema. Mild swelling. Calf supple nontender. Progress Note: A&P Assessment and plan (1) Status post total right knee replacement: Status: Acute Assessment and Plan: cont pain mgmnt cont PT for RT TKA pending EGD dispo planning Fall Risk Details Current Medications: Current Medications Generic Name Dose Route Start Last Admin Trade Name Freq PRN Reason Stop Dose Admin Acetaminophen 650 mg 01/15/20 01:00 01/19/20 13:55 Acetaminophen 325 Mg Tablet PO Not Given Q6H DIO Hydrocodone Bitart/Acetaminophen 1 tab 01/17/20 10:38 01/19/20 04:42 Hydrocodone Bit/Acetam 5/325 Tablet PO 1 tab Q4H PRN Administration Pain, Moderate (Pain Scale 4-6 Al Hydroxide/Mg Hydroxide 15 ml 01/15/20 17:30 01/16/20 01:53 Magnesium Hydrox/Alum Hydrox 30 Ml Oral.Susp PO 15 ml Q4H PRN Administration GI Upset Diphenhydramine HCl 25 mg 01/15/20 19:06 01/18/20 23:25 Diphenhydramine Hcl 25 Mg Tablet PO 25 mg Q6H PRN Administration Itching Hydromorphone HCl 0.5 mg 01/17/20 12:57 01/19/20 10:10 Hydromorphone Hcl 0.5 Mg/0.5 Ml Syringe IVPUSH 0.5 mg Q6H PRN Administration Pain, Severe (Pain Scale 7-10) Sodium Chloride 1,000 mls @ 75 mls/hr 01/19/20 08:30 01/19/20 08:35 Ns IVCONT 75 mls/hr .[id number] DIO Administration Lactated Ringer's 1,000 ml in 1,000 mls @ 20 mls/hr 01/19/20 14:10 Lr IVCONT .Q24H DIO Ondansetron HCl 4 mg 01/15/20 00:00 01/15/20 13:01 Ondansetron Hcl 4 Mg/2 Ml Vial IVPUSH 4 mg Q8H PRN Administration Nausea and Vomiting Ondansetron HCl 4 mg 01/19/20 13:57 Ondansetron Hcl 4 Mg/2 Ml Vial IVPUSH ONCE PRN Nausea and Vomiting Oxycodone HCl 10 mg 01/15/20 09:00 01/19/20 08:33 Oxycodone Hcl Er 10 Mg Tab.Er.12h PO 10 mg BID DIO Administration Pantoprazole Sodium 40 mg 01/19/20 09:45 01/19/20 10:10 Pantoprazole Sodium 40 Mg/10 Ml Vial IVPUSH 40 mg BID@0630,1630 DIO Administration Polyethylene Glycol 17 gm 01/16/20 09:00 01/19/20 08:36 Polyethylene Glycol 3350 17 Gm Powd.Pack PO Not Given DAILY DIO Senna/Docusate Sodium 1 tab 01/15/20 00:00 01/17/20 02:42 Sennosides/Docusate Sodium Tablet PO 1 tab BEDTIME PRN Administration Constipation Time Spent With Patient Time: Total time spent is greater than 50% in coordination of care (as documented) at patient's floor/unit and/or counseling patient: Time with patient: 15 - 24 minutes Progress Note: Quality VTE Deep Vein Thrombosis/Pulmonary Embolism Present on Admission: No
--- NOTE | 2020-01-19 14:49 | PM.OP ---
Brief Operative Note Date of procedure: 01/19/20 Pre-op diagnosis: Abdominal pain, N/V Post-op diagnosis: other (Esophagitis) Procedure: EGD Anesthesia: MAC Surgeon: Warren Loo Pathology: none sent Condition: stable Disposition: PACU
--- NOTE | 2020-01-19 14:50 | P.BOP_ITS ---
Brief Operative Note Date of procedure: 01/19/20
--- NOTE | 2020-01-19 14:50 | PM.OP ---
Brief Operative Note Date of procedure: 01/19/20
--- NOTE | 2020-01-19 14:51 | PM.EVENT ---
Event Note Event Note: EGD-Full note dictated Findings: 1. 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 No ulcer, no obstruction Rec: Change to po PPI, F/U labs in AM. Advance diet as tolerated. I ordered an abdominal U/S for AM to check her GB. F/U anemia as outpatient as she may need a colonoscopy if she hasn't had one done recently. D/W her daughter. Thanks.
--- NOTE | 2020-01-19 15:02 | MHC.CM.PN ---
PER REVIEW OF CHART, ABDOMINAL ULTRASOUND PLANNED FOR TOMORROW MORNING
[2020-01-19] MEDS: Omeprazole 20 MG CAPSULE.DR PO (17:00)
[2020-01-20] VITALS (11 sets, daily range): BP systolic 137–156; BP diastolic 68–77; PULSE 65–88; RESP 16–19; TEMP 36.2–37; O2SAT 92–98
--- NOTE | 2020-01-20 | US_ITS ---
EXAMINATION: ABDOMINAL ULTRASOUND CLINICAL INFORMATION: Abdominal pain COMPARISON: None TECHNIQUE: Grayscale and color imaging of the abdomen FINDINGS: The gallbladder is enlarged measuring 5 x 5 x 12.6 cm in dimension. The gallbladder wall appears thickened and slightly edematous measuring 0.6 cm. There is a small amount of pericholecystic fluid. There are no gallstones seen. There is dependent echogenic material in the gallbladder suggestive of echogenic bile. The supervisor microbiology technologists reports that the patient is tender over the gallbladder. Ultrasound appearance is concerning for acalculous cholecystitis. Liver echotexture is slightly increased. The liver is slightly enlarged, right lobe measuring 20 cm in length. No focal liver lesion is seen. The hepatic veins appears slightly prominent. There is no intrahepatic biliary duct dilatation. The common bile duct is minimally dilated measuring 0.8 cm. The pancreas is unremarkable. Visualized aorta and IVC are unremarkable. The kidneys are normal in contour and symmetric in size, both kidneys measuring 12 cm in length. Renal cortical thickness and echogenicity is normal. No renal stone, mass or hydronephrosis is seen. The spleen is unremarkable. There is a small amount of ascites adjacent to the right lobe of the liver. IMPRESSION: Dilated gallbladder with echogenic bile. No gallstones seen. Gallbladder wall thickening and edema, small amount of pericholecystic fluid and small amount of fluid adjacent to the right lobe of the liver. Appearance is concerning for acalculous cholecystitis. Follow-up HIDA scan should be considered. Normal caliber intrahepatic bile ducts. Mildly dilated common bile duct. Slightly echogenic enlarged liver probably representing fatty infiltration. Prominent hepatic veins, question evidence of right heart compromise.
[2020-01-20] MEDS: HYDROmorphone HCl 0.5 MG/0.5 ML SYRINGE IVPUSH ×3 (00:45→18:03)
[2020-01-20] MEDS: Acetaminophen 325 MG TABLET 650 MG PO ×3 (00:47→14:02)
--- NOTE | 2020-01-20 01:00 | PC.NURSE ---
PATIENT A&OX3, RETURNS FROM EGD PROCEDURE. ASSISTED TO TOILET WITH MOSTLY SUPERVISION. PATIENT USES WALKER, MOVES WELL, AND HAS A STEADY GAIT. TYLENOL REQUESTED AND GIVEN FOR MILD PAIN IN RIGHT KNEE. ASSISTED BACK TO BED. PATIENT HAS A SURGICAL INCISION TO THE RIGHT KNEE. DRESSING IS C/D/I WITH SMALL, OLD STAINING. BRUISING NOTED TO RIGHT INNER THIGH AND RIGHT OUTER THIGH, PATIENT REPORTS NO PAIN, BUT SLIGHT IRRITATION TO THE AREA. PATIENT'S DAUGHTER VISITED AND HAD SEVERAL QUESTIONS ABOUT TESTING, RESULTS, AND DISCHARGE. DAUGHTER REQUESTS REPEAT OCCULT BLOOD TEST PRIOR TO D/C. PASSED ALONG TO NEXT NURSE. PATIENT HAD FOAM DRESSING TO MEDIAL BUTTOCKS, SMALL OPEN AREA REPORTED AND NOTED. PATIENT REMOVED THE DRESSING DURING THE SHIFT AND REFUSED A CLEAN DRESSING, STATING IT SHOULD BE LEFT OPEN TO AIR. EDUCATION ON REPOSITIONING, STAYING DRY, AND OTHER TECHNIQUES TO HELP ALLEVIATE PAIN/PRESSURE ON THE AREA.
[2020-01-20] MEDS: HYDROcodone Bit/Acetam 5/325 TABLET 1 TAB PO ×2 (04:40→10:09)
[2020-01-20] MEDS: Omeprazole 20 MG CAPSULE.DR PO (04:41)
[2020-01-20] MEDS: 0.9 % Sodium Chloride 1,000 ML 75 ML IVCONT (05:18)
[2020-01-20 06:34] LABS: MANUAL DIFF FLAG NO
[2020-01-20 06:46] LABS: Basophils Absolute Auto 0.1 X10*3/uL (0.0-0.2); Basophils Percent Auto 0.9 % (0-2); Eosinophils Absolute Auto 0.3 X10*3/uL (0.0-0.4); Eosinophils Percent Auto 4.6 % (0-4); Hematocrit 29.4 % (37-47); Hemoglobin 9.5 g/dl (12.0-16.0); Imm Gran Abs Auto 0.08 X10*3/uL (0.00-0.03); Imm Gran Pct Auto 1.2 % (0.0-0.4); Lymphocytes Absolute Auto 1.9 X10*3/uL (1.2-4.9); Lymphocytes Percent Auto 27.7 % (20-40); Mean Corpuscular HGB Conc 32.3 g/dl (31.0-35.0); Mean Corpuscular Volume 92.7 fL (80-98); Mean Platelet Volume 10.2 fL (9.4-12.3); Monocytes Absolute Auto 0.9 X10*3/uL (0.1-1.2); Monocytes Percent Auto 13.7 % (2-11); Neutrophils Absolute Auto 3.5 X10*3/uL (2.0-8.3); Neutrophils Percent Auto 51.9 % (45-73); Platelet Count 252 X10*3/uL (160-400); Red Blood Count 3.17 X10*6/uL (4.20-5.50); Red Cell Distribution Width 13.5 % (11.0-16.0); White Blood Count 6.7 X10*3/uL (4.8-10.8)
[2020-01-20 07:19] LABS: Alanine Aminotransferase 20 U/L (0-31); Albumin Level 3.2 g/dL (3.5-5.0); Alkaline Phosphatase 162 U/L (39-117); Anion Gap 10 (12-20); Aspartate Amino Transferase 22 U/L (5-31); Bilirubin Direct 0.4 mg/dL (0.0-0.5); Bilirubin Total 0.9 mg/dL (0.0-1.0); Blood Urea Nitrogen 7 mg/dL (9-16); Calcium 8.5 mg/dL (8.4-10.2); Carbon Dioxide 32 mmol/L (22-29); Chloride 106 mmol/L (96-108); Creatinine Clr Calc Pharmacy 93.3; Estimated Glomerular Filt Rate > 60; Glucose Fasting 93 mg/dL (60-99); Potassium 3.8 mmol/l (3.3-5.1); Sodium 144 mmol/L (135-145); Total Protein 5.3 g/dL (6.5-8.0)
[2020-01-20] MEDS: polyethylene glycoL 3350 17 GM POWD.PACK PO (07:41)
--- NOTE | 2020-01-20 10:28 | HO.POSTANES ---
Post Anesthesia Evaluation Post Anesthesia Evaluation Vital Signs: Vital Signs Temp Pulse Resp BP Pulse Ox 01/20/20 08:00 97.1 F 88 19 156/77 H 98 01/20/20 04:00 98.6 F 77 139/74 95 01/20/20 03:00 98.6 F 70 19 139/74 95 01/20/20 02:00 16 01/20/20 01:05 98.6 F 80 18 146/68 H 96 01/20/20 00:47 18 01/20/20 00:00 19 01/19/20 23:45 98.6 F 98 19 160/72 H 95 01/19/20 23:33 98.1 F 86 149/77 H 96 01/19/20 23:12 98.6 F 98 19 148/72 H 95 Anesthesia: Monitored Mental Status: Awake Pain Control: Satisfactory Nausea/Vomiting: None Hydration: Adequate Anesthesia-Related Issues: No Anes. Related Issues
--- NOTE | 2020-01-20 12:54 | P.PNIM_ITS ---
Subjective Subjective Date of Service: 01/20/20 Interval History: Seen and examined this AM and then again this afternoon. Reports pain overall is improving wants to go home Review of Systems General - no fevers or chills Cardiovascular - no chest pain Respiratory - no shortness of breath or cough Abdominal- minimal abdominal pain -- RUQ, nausea, vomiting, diarrhea Physical Exam Vital Signs and I&O and Narrative: Vital Signs and I&O: Vital Signs Temp 98.4 F 01/20/20 12:25 Pulse 81 01/20/20 12:25 Resp 19 01/20/20 12:25 BP 138/70 01/20/20 12:25 Pulse Ox 96 01/20/20 12:25 Intake & Output 01/19/20 01/20/20 01/20/20 18:59 06:59 18:59 Intake Total 203 / 3240.5 3037.5 / 3240.5 Output Total 404 / 404 Balance 203 / 2836.5 2633.5 / 2836.5 Urine Output (Aver age ml/kg/hr) 0.34 0.34 Intake: Intake, Oral [place] unt 200 / 690 490 / 690 Intake, IV Amoun t 3 / 2550.5 2547.5 / 2550.5 0.9 % Sodium C hloride 1,000 ml 2547.5 / 2547.5 @ 75 mls/hr IV CONT .[id number] [facility] Rx#:[id number] Lactated Ringe rs 1,000 ml In 1, 3 / 3 000 ml @ 20 ml s/hr IVCONT .Q24H [facility] Rx#:[id number] Output: Output, Urine Am ount 404 / 404 Other: Meal Refused No NPO Yes No Yes Dinner % Eaten 75% Number of Incont inent Voids 300 Urine Bathroom Last Bowel Movem ent 01/14/20 Body Mass Index 41.1 General - no acute distress, appears comfortable Cardiovascular - regular rate and rhythm, S1-S2 Lungs - normal respiratory effort, clear to auscultation bilaterally, no wheezing Abdomen - mild RUQ tenderness, no rebound or guarding Extremities - no edema bilaterally Neuro - awake and alert, no focal deficits Objective Data Current Medications Generic Name Dose Route Start Last Admin Trade Name Freq PRN Reason Stop Dose Admin Acetaminophen 650 mg 01/15/20 01:00 01/20/20 05:20 Acetaminophen 325 Mg Tablet PO 650 mg Q6H DIO Administration Hydrocodone Bitart/Acetaminophen 1 tab 01/17/20 10:38 01/20/20 10:09 Hydrocodone Bit/Acetam 5/325 Tablet PO 1 tab Q4H PRN Administration Pain, Moderate (Pain Scale 4-6 Al Hydroxide/Mg Hydroxide 15 ml 01/15/20 17:30 01/16/20 01:53 Magnesium Hydrox/Alum Hydrox 30 Ml Oral.Susp PO 15 ml Q4H PRN Administration GI Upset Diphenhydramine HCl 25 mg 01/15/20 19:06 01/18/20 23:25 Diphenhydramine Hcl 25 Mg Tablet PO 25 mg Q6H PRN Administration Itching Hydromorphone HCl 0.5 mg 01/17/20 12:57 01/20/20 07:34 Hydromorphone Hcl 0.5 Mg/0.5 Ml Syringe IVPUSH 0.5 mg Q6H PRN Administration Pain, Severe (Pain Scale 7-10) Sodium Chloride 1,000 mls @ 75 mls/hr 01/19/20 08:30 01/20/20 05:18 Ns IVCONT 75 mls/hr .[id number] DIO Administration Lactated Ringer's 1,000 ml in 1,000 mls @ 20 mls/hr 01/19/20 14:10 01/19/20 14:50 Lr IVCONT 20 mls/hr .Q24H DIO Infusion Omeprazole 20 mg 01/19/20 16:24 01/20/20 04:41 Omeprazole 20 Mg Capsule.Dr PO 20 mg DAILY@0630 DIO Administration Ondansetron HCl 4 mg 01/15/20 00:00 01/15/20 13:01 Ondansetron Hcl 4 Mg/2 Ml Vial IVPUSH 4 mg Q8H PRN Administration Nausea and Vomiting Ondansetron HCl 4 mg 01/19/20 13:57 Ondansetron Hcl 4 Mg/2 Ml Vial IVPUSH ONCE PRN Nausea and Vomiting Polyethylene Glycol 17 gm 01/16/20 09:00 01/20/20 07:41 Polyethylene Glycol 3350 17 Gm Powd.Pack PO 17 gm DAILY DIO Administration Senna/Docusate Sodium 1 tab 01/15/20 00:00 01/17/20 02:42 Sennosides/Docusate Sodium Tablet PO 1 tab BEDTIME PRN Administration Constipation Labs CBC & Chem 7: 01/20/20 06:12 01/20/20 06:12 Labs: Laboratory Results - last 24 hr 01/20/20 01/20/20 06:12 06:12 MCV 92.7 MCH 30.0 MCHC 32.3 RDW 13.5 Plt Count 252 MPV 10.2 Immature Gran % (Auto) 1.2 H Neut % (Auto) 51.9 Lymph % (Auto) 27.7 [place] % (Auto) 13.7 H Eos % (Auto) 4.6 H Baso % (Auto) 0.9 Neut # (Auto) 3.5 Lymph # (Auto) 1.9 [place] # (Auto) 0.9 Eos # (Auto) 0.3 Baso # (Auto) 0.1 Abs Immat Gran (auto) 0.08 H Absolute Nucleated RBC 0.000 Nucleated RBC % (auto) 0.0 Anion Gap 10 L Estim Creat Clear Calc 93.3 Estimated GFR > 60 Fasting Glucose 93 Calcium 8.5 Total Bilirubin 0.9 Direct Bilirubin 0.4 AST 22 ALT 20 Alkaline Phosphatase 162 H Total Protein 5.3 L Albumin 3.2 L Progress Note: A&P (1) Status post total right knee replacement: Status: Acute Assessment and Plan: This is a 69-year-old female with a past medical history of diabetes, previous D VT on Eliquis, osteoarthritis who was admitted for elective TKA. Her hospital course has been further complicated by acute blood loss anemia, possible gastritis. 1. Acute blood loss anemia, ? Gastritis no bleeding noted on upper Endo -- some gastritis possibly post-op anemia oral PPI recommended by GI d/w Dr. Loo -- jae to restart OAC from GI perspective. Orthopedics informed of this. 2. ? acute cholecystitis general surgery consulted -- plan for HIDA scan 3.Hypotension Likely hypovolemic and now normalized Monitor closely 4. isolated low-grade temperature Infectious workup negative to date Afebrile greater than 96 hours at this point Continue to monitor Likely postop related 5. diabetes mellitus Continue with point of cares and sliding scale coverage as needed 6. history of DVT d/w Dr. Loo -- jae for OAC from his end. 7. S/P R TKA mgmt per ortho Will Follow along Quality VTE Deep Vein Thrombosis/Pulmonary Embolism Present on Admission: No
--- NOTE | 2020-01-20 13:24 | PM.CNGS ---
History of Present Illness Consult details Consult date: 01/20/20 Reason for consult: abdominal pain (Possible acalculous cholecystitis) Requesting physician: Sadi Babcock Narrative: this is a 69-year-old female who underwent right total knee replacement with Dr. Merchant about a week ago. She reports that immediately postoperatively, she had some nausea and upper abdominal pain, primarily located in the right upper quadrant. She says that she has had this type of pain in the past. She also reports a history of chronic constipation and generally takes Dulcolax tablets nightly. She has not been taking the Dulcolax since admission and says that she has not had a bowel movement in about a week. She is tolerating a solid diet. She has a history of laparoscopic gastric sleeve surgery done earlier this year by Dr. Dixon at [facility]. Because of her abdominal pain and findings of anemia, GI consultation was obtained. She underwent EGD with Dr. Loo yesterday. there were no significant findings to explain her symptoms. Ultrasound of the abdomen was obtained today. This revealed thickening of the gallbladder wall with a small amount of pericholecystic fluid raising concern for acalculous cholecystitis. Review of Systems Constitutional: Constitutional: Reports weakness Cardiovascular: Cardiovascular: Reports no additional cardiovascular complaints and Reports dyspnea on exertion Respiratory: Respiratory: Reports dyspnea on exertion Gastrointestinal: Gastrointestinal: Reports as per HPI Musculoskeletal: Comments: Reports postoperative right knee pain Neurologic: Reports weakness PMFSH Family History Family History (Updated 01/14/20 @ 13:14 by LATISHA Tran) Daughter No problems noted. Son No problems noted. Surgical History Surgical History (Updated 01/20/20 @ 13:39 by Ashwini Johansen MD) History of section History of colon resection S/P laparoscopic sleeve gastrectomy Status post total right knee replacement Social History Social History Smoking Status: Never smoker service: No Current occupational status: retired Meds Allergies Allergy/AdvReac Type Severity Reaction Status Date / Time enoxaparin [From LOVENOX] Allergy Severe SEVERE Verified 01/16/20 18:37 RASH/ITCHING-ABDOMEN morphine [MORPHINE] Allergy Severe ITCHING, Verified 01/16/20 18:37 itchy Home Medications Medication Instructions Recorded Confirmed Type apixaban 5 mg tablet 5 mg PO BID 01/14/20 01/14/20 History gabapentin 600 mg tablet 600 mg PO BID 01/14/20 01/14/20 History metformin 1,000 mg PO BIDWM 01/14/20 01/14/20 History sennosides 8.6 mg-docusate sodium 2 tab PO BID 01/14/20 01/14/20 History 50 mg tablet Physical Exam Vital Signs and I&O and Narrative: Vital Signs and I&O: Vital Signs Temp 98.4 F 01/20/20 12:25 Pulse 81 01/20/20 12:25 Resp 19 01/20/20 12:25 BP 138/70 01/20/20 12:25 Pulse Ox 96 01/20/20 12:25 Intake & Output 01/19/20 01/20/20 01/20/20 18:59 06:59 18:59 Intake Total 203 / 3240.5 3037.5 / 3240.5 Output Total 404 / 404 Balance 203 / 2836.5 2633.5 / 2836.5 Urine Output (Aver age ml/kg/hr) 0.34 0.34 Intake: Intake, Oral [place] unt 200 / 690 490 / 690 Intake, IV Amoun t 3 / 2550.5 2547.5 / 2550.5 0.9 % Sodium C hloride 1,000 ml 2547.5 / 2547.5 @ 75 mls/hr IV CONT .[id number] [facility] Rx#:[id number] Lactated Ringe rs 1,000 ml In 1, 3 / 3 000 ml @ 20 ml s/hr IVCONT .Q24H [facility] Rx#:[id number] Output: Output, Urine Am ount 404 / 404 Other: Meal Refused No NPO Yes No Yes Dinner % Eaten 75% Number of Incont inent Voids 300 Urine Bathroom Last Bowel Movem ent 01/14/20 Body Mass Index 41.1 Const: Other: alert, no apparent distress HENMT: Head: Yes normocephalic and Yes atraumatic Eyes: General: appearance normal, both eyes and all related structures Resp: Effort & Inspection: normal respiratory effort Auscultation: clear to auscultation bilaterally Cardio: Rate: regular rate Rhythm: regular rhythm GI: Other: protuberant, multiple scars including midline scar extending from above umbilicus through lower midline, diffusely tender right subcostal the area extending across midline, mild generalized abdominal tenderness, no palpable masses, normal bowel sounds Rectal Exam - Female: deferred Skin: Other: normal color, warm and dry Results Labs Result diagrams: 01/20/20 06:12 01/20/20 06:12 Labs: Abnormal lab results 01/20/20 01/20/20 Range/Units 06:12 06:12 RBC 3.17 L (4.20-5.50) X10*6/uL Hgb 9.5 L (12.0-16.0) g/dl Hct 29.4 L (37-47) % Immature Gran % (Auto) 1.2 H (0.0-0.4) % [place] % (Auto) 13.7 H (2-11) % Eos % (Auto) 4.6 H (0-4) % Abs Immat Gran (auto) 0.08 H (0.00-0.03) X10*3/uL Carbon Dioxide 32 H (22-29) mmol/L Anion Gap 10 L (12-20) BUN 7 L (9-16) mg/dL Alkaline Phosphatase 162 H (39-117) U/L Total Protein 5.3 L (6.5-8.0) g/dL Albumin 3.2 L (3.5-5.0) g/dL Short CBC 01/20/20 Range/Units 06:12 WBC 6.7 (4.8-10.8) X10*3/uL Hgb 9.5 L (12.0-16.0) g/dl Hct 29.4 L (37-47) % Plt Count 252 (160-400) X10*3/uL BMP 01/20/20 06:12 Sodium 144 Potassium 3.8 Chloride 106 Carbon Dioxide 32 H BUN 7 L Creatinine 0.62 Calcium 8.5 Liver Function 01/20/20 Range/Units 06:12 Total Bilirubin 0.9 (0.0-1.0) mg/dL Direct Bilirubin 0.4 (0.0-0.5) mg/dL AST 22 (5-31) U/L ALT 20 (0-31) U/L Alkaline Phosphatase 162 H (39-117) U/L Albumin 3.2 L (3.5-5.0) g/dL Urine 01/15/20 Range/Units 14:42 Urine Color YELLOW Urine Appearance HAZY Urine pH 5.5 (5.0-8.0) Ur Specific [place] 1.025 (1.005-1.025) Urine Protein TRACE (NEG-TRACE) MG/DL Urine Glucose (UA) NEG (NEG) MG/DL All other labs normal. Imaging Abdominal ultrasound report/results: report reviewed (IMPRESSION: Dilated gallbladder with echogenic bile. No gallstones seen. Gallbladder wall thickening and edema, small amount of pericholecystic fluid and small amount of fluid adjacent to the right lobe of the liver. Appearance is concerning for acalculous cholecystitis. Follow-up HIDA scan should b) Assessment and Plan (1) Sleep apnea: Status: Acute (2) Diabetes mellitus: Status: Acute (3) Abdominal pain: Status: Acute this is a 69-year-old female with complaints of abdominal pain and nausea following right total knee replacement. Symptoms have been present for approximately 1 week. She reports that she has experienced similar symptoms in the past. Ultrasound of the abdomen raises concerns for acalculous cholecystitis. She has been afebrile. White blood count is normal. She does not appear toxic. Further evaluation with HIDA scan is indicated. She has not been NPO. Scan will be performed early tomorrow morning. Further plans will be made once results are available. She has a history of constipation. She will be resuming her usual Dulcolax tonight. Will let give [place] enema x1 today.
--- NOTE | 2020-01-20 14:45 | PM.PNORT ---
Subjective Subjective Principal diagnosis: s/p Rt TKA Interval history: postop day 7 status post right total knee arthroplasty. She had an EGD which was negative for ulcers or GI bleed. Abdominal ultrasound which was significant for her gallbladder wall thickening. Negative for gallstones. She is afebrile. No chest pain or shortness of breath. She does have right upper quadrant pain. Physical Exam Vital Signs and I&O and Narrative: Vital Signs and I&O: Vital Signs Temp 98.4 F 01/20/20 12:25 Pulse 81 01/20/20 12:25 Resp 19 01/20/20 12:25 BP 138/70 01/20/20 12:25 Pulse Ox 96 01/20/20 12:25 Intake & Output 01/19/20 01/20/20 01/20/20 18:59 06:59 18:59 Intake Total 203 / 3240.5 3037.5 / 3240.5 884.667 / 884.667 Output Total 404 / 404 800 / 800 Balance 203 / 2836.5 2633.5 / 2836.5 84.667 / 84.667 Urine Output (Aver age ml/kg/hr) 0.34 0.68 Intake: Intake, Oral [place] unt 200 / 690 490 / 690 420 / 420 Intake, IV Amoun t 3 / 2550.5 2547.5 / 2550.5 464.667 / 464.667 0.9 % Sodium C hloride 1,000 ml 2547.5 / 2547.5 @ 75 mls/hr IV CONT .[id number] [facility] Rx#:[id number] Lactated Ringe rs 1,000 ml In 1, 3 3 464.667 / 464.667 000 ml @ 20 ml s/hr IVCONT .Q24H [facility] Rx#:[id number] Output: Output, Urine Am ount 404 / 404 800 / 800 Other: Meal Refused No No NPO Yes No No Breakfast % Eate n < 25 Lunch % Eaten 100% Dinner % Eaten 75% Number of Incont inent Voids 300 Urine Bathroom Last Bowel Movem ent 01/14/20 Body Mass Index 41.1 Const: General: cooperative, healthy appearing and no acute distress Resp: Effort & Inspection: normal respiratory effort and able to speak in complete sentences Cardio: Rate: regular rate Peripheral pulses: Peripheral pulses 2+ throughout GI: Inspection: Yes normal to inspection Palpation (GI): Soft to palpation Skin: General skin exam: no rashes or lesions noted Extrem: Other: Skin intact, no drainage. Mild edema with bruising. Negative Homans. Calf supple nontender. Progress Note: A&P Assessment and plan (1) Status post total right knee replacement: Status: Acute Assessment and Plan: Continue pain management continue physical therapy for right TKA bilateral pneumatic HIDA scan tomorrow morning dispo planning Fall Risk Details Current Medications: Current Medications Generic Name Dose Route Start Last Admin Trade Name Freq PRN Reason Stop Dose Admin Acetaminophen 650 mg 01/15/20 01:00 01/20/20 14:02 Acetaminophen 325 Mg Tablet PO 650 mg Q6H DIO Administration Hydrocodone Bitart/Acetaminophen 1 tab 01/17/20 10:38 01/20/20 10:09 Hydrocodone Bit/Acetam 5/325 Tablet PO 1 tab Q4H PRN Administration Pain, Moderate (Pain Scale 4-6 Al Hydroxide/Mg Hydroxide 15 ml 01/15/20 17:30 01/16/20 01:53 Magnesium Hydrox/Alum Hydrox 30 Ml Oral.Susp PO 15 ml Q4H PRN Administration GI Upset Diphenhydramine HCl 25 mg 01/15/20 19:06 01/18/20 23:25 Diphenhydramine Hcl 25 Mg Tablet PO 25 mg Q6H PRN Administration Itching Hydromorphone HCl 0.5 mg 01/17/20 12:57 01/20/20 07:34 Hydromorphone Hcl 0.5 Mg/0.5 Ml Syringe IVPUSH 0.5 mg Q6H PRN Administration Pain, Severe (Pain Scale 7-10) Sodium Chloride 1,000 mls @ 75 mls/hr 01/19/20 08:30 01/20/20 14:03 Ns IVCONT Not Given .[id number] [facility] Omeprazole 20 mg 01/19/20 16:24 01/20/20 04:41 Omeprazole 20 Mg Capsule.Dr PO 20 mg DAILY@0630 DIO Administration Ondansetron HCl 4 mg 01/15/20 00:00 01/15/20 13:01 Ondansetron Hcl 4 Mg/2 Ml Vial IVPUSH 4 mg Q8H PRN Administration Nausea and Vomiting Polyethylene Glycol 17 gm 10/02/20 09:00 01/20/20 07:41 Polyethylene Glycol 3350 17 Gm Powd.Pack PO 17 gm DAILY DIO Administration Senna/Docusate Sodium 1 tab 01/15/20 00:00 01/17/20 02:42 Sennosides/Docusate Sodium Tablet PO 1 tab BEDTIME PRN Administration Constipation Sodium Biphosphate/Sodium Phosphate 133 ml 01/20/20 13:30 Sodium Phosphate,[place]-Dibasic 133 Ml Enema DC ONCE DIO Time Spent With Patient Time: Total time spent is greater than 50% in coordination of care (as documented) at patient's floor/unit and/or counseling patient: Time with patient: 15 - 24 minutes Progress Note: Quality VTE Deep Vein Thrombosis/Pulmonary Embolism Present on Admission: No
--- NOTE | 2020-01-20 14:46 | MHC.CM.PN ---
PATIENT IS EXPECTED TO REMAIN ANOTHER NIGHT. PATIENT EXPRESSING STRONG DESIRE TO RETURN HOME. CASE MANAGEMENT FOLLOWING.
--- NOTE | 2020-01-20 16:33 | OP_ITS ---
SURGEON: Warren Loo MD INDICATIONS: The patient presents for evaluation of ongoing issues with abdominal pain, nausea, vomiting, and anemia. Full consent has been obtained from her for this, including risks of bleeding and perforation. PREOPERATIVE DIAGNOSIS: POSTOPERATIVE DIAGNOSIS: PROCEDURE PERFORMED: Esophagogastroduodenoscopy. ESTIMATED BLOOD LOSS: COMPLICATIONS: ANESTHESIA: Monitored anesthesia care. ASSISTANTS: SPECIMENS: PREOPERATIVE DIAGNOSES: Abdominal pain, nausea, vomiting, and anemia. POSTOPERATIVE DIAGNOSES: Abdominal pain, nausea, vomiting, and anemia, esophagitis. DESCRIPTION OF PROCEDURE: The patient was placed in the left lateral decubitus position. The Olympus video gastroscope was passed in the posterior oropharynx and upper esophagus under direct vision. The scope was passed slowly into the distal esophagus. The gastroesophageal junction appeared at 35 cm. This area was notable for some signs of reflux esophagitis with some erosions and erythema, but no ulceration or mass. There was no stricture. There was no gross evidence of Jessica's mucosa. The scope was entered into the stomach and was advanced to pylorus. The duodenum was cannulated the descending portion. The duodenum including the bulb appeared normal without mass or ulceration. Scope was withdrawn back into the stomach. The gastric antrum and body appeared normal, although the scar from her recent sleeve gastrectomy was notable, extending along the stomach. There was no sign of any ulceration nor mass. There was no sign of any gastric outlet obstruction. Scope was retroflexed visualizing the proximal stomach carefully which appeared normal, without any sign of mass or ulceration. The scope was straightened. Scope was withdrawn back into the esophagus. Proximal to the EG junction, the esophageal mucosa appeared normal. The scope was withdrawn from the patient. She tolerated the procedure well and was returned to recovery area in stable condition. IMPRESSION: Erosive esophagitis. PLAN: At this point, the patient will be switched to an oral PPI. Her diet will be advanced as tolerated. Given her ongoing symptoms, I did order an abdominal ultrasound and repeat chemistries, LFTs, and CBC for the morning. If things are stable and the workup is negative, and she is tolerating her diet, she could be then discharged. She will need followup of her CBC and anemia as an outpatient to be sure she does not need any further workup such as a colonoscopy if she does not have that done recently. This has been discussed with the daughter. MD MELISSA Santillan/TAB / [id number]
[2020-01-21] VITALS: BP 146/81; PULSE 88; RESP 16; TEMP 37.1; O2SAT 93
[2020-01-21] MEDS: HYDROmorphone HCl 0.5 MG/0.5 ML SYRINGE IVPUSH ×2 (00:18→06:26)
[2020-01-21 03:06] VITALS: BP 140/79; PULSE 85; RESP 18; TEMP 36.8; O2SAT 92
[2020-01-21] MEDS: HYDROcodone Bit/Acetam 5/325 TABLET 1 TAB PO ×2 (03:32→10:20)
[2020-01-21 07:05] VITALS: BP 135/75; PULSE 88; RESP 18; TEMP 36.6; O2SAT 96
--- NOTE | 2020-01-21 09:45 | NM_ITS ---
EXAMINATION: BILIARY TRACT IMAGING STUDY CLINICAL INFORMATION: Nausea, vomiting, abdominal pain.. COMPARISON: No previous biliary scan is available for comparison. Abdominal ultrasound dated 01/20/2020 is available for comparison.. TECHNIQUE: Serial gamma scintillation camera images were obtained over the abdomen for a total observation period of 120 minutes following the intravenous administration of 5.0 mCi Tc-99m Mebrofenin. FINDINGS: There is good concentration of activity in the liver by 5 minutes post injection. Biliary activity is visualized by 30 minutes. Small bowel is well visualized by 35 minutes. The gallbladder is well not visualized at any time during the study. At the end of the study at 2 hours, there is diffuse small bowel activity an complete clearance of activity from the liver but continued nonvisualization of the gallbladder. IMPRESSION: Nonvisualization the gallbladder is evidence of an obstructed cystic duct and strong evidence to suggest the diagnosis of acute cholecystitis. The common bile duct is patent. Liver function is may be normal, but biliary activity visualized later than usual, and this may be evidence of some diffuse hepatocellular disease.
--- NOTE | 2020-01-21 09:56 | P.EN_ITS ---
Event Note Event Note: I saw her while she was still in nuclear medicine. HIDA scan is not yet complete, but it appears that there is delayed visualization of the gallbladder and no obstruction of the biliary ducts. This suggests chronic cholecystitis. Her preference is to follow up with her surgeon at [facility], Dr. Dixon. There is no contraindication to discharge from the general surgery perspective.
[2020-01-21] MEDS: polyethylene glycoL 3350 17 GM POWD.PACK PO (10:20)
[2020-01-21] MEDS: Sennosides/Docusate Sodium TABLET 1 TAB PO (10:21)
[2020-01-21 10:57] VITALS: BP 150/72; PULSE 92; RESP 18; TEMP 36.4; O2SAT 93
[2020-01-21] MEDS: oxyCODONE HCl Immed Release 5 MG TABLET PO (11:19)
--- NOTE | 2020-01-21 12:01 | P.DS_ITS ---
DS: Providers Provider Date of admission: 01/14/20 17:20 Primary care physician: Muriel Mayers MD Consults: 01/14/20 17:48 Consult to Hospitalist Routine Consulting Provider: Lobo Emerson Reason for consultation: Medical Management Has provider been notified: Yes 01/15/20 13:51 Consult to Gastroenterology Routine Consulting Provider: Hernán Jorge Reason for consultation: nausea vomiting abdominal pain gastric bypass surgery 01/20/20 12:17 Consult to General Surgery Routine Consulting Provider: Ashwini Johansen Reason for consultation: RUQ pain, abnormal ultrasound, ? acalculous cholecystitis DS: Diagnosis Discharge Diagnosis (1) Status post total right knee replacement: Status: Acute Problem details: Ms. Chen Is a 61-year-old female who presented to our office for right knee pain. She was found to have osteoarthritis of the right knee and failed all conservative measures. She continued to have pain with daily activities therefore she consented to move forward with right total knee arthroplasty. DS: Summary Hospital Course Hospital Course: Ms. Chen Underwent a successful right total knee arthroplasty she was transferred to PACU and then to the floor she recovered during her stay her vitals were stable afebrile at 97.5. Postop day 3 her H&H dropped to 7.7/24.0 when she received 2 units of packed red blood cells. She was also seen by GI because of her right upper quadrant pain. She had an ultrasound of her abdomen along with a HIDA scan which showed thickening of the gallbladder wall but there is no obstruction. The recommendations were for her to follow up with her bariatric surgeon for further treatment plans regarding her chronic cholecystitis. Her Eliquis was held during her hospital stay due to her decrease in H&H and also epigastric pain. This is resumed on discharge. She received physical therapy twice a day. Prior to discharge her Aquacel dressing was changed incision clean dry and intact new Aquacel dressing applied and the plan is for her to be discharged home with VNA services. Time Spent with Patient Time attestation: Total time spent providing and/or coordinating discharge services: Quality: VTE Deep Vein Thrombosis/Pulmonary Embolism Present on Admission: No Physical Exam Vital Signs and I&O and Narrative: Vital Signs and I&O: Vital Signs Temp 97.5 F 01/21/20 10:57 Pulse 92 01/21/20 10:57 Resp 18 01/21/20 10:57 BP 150/72 H 01/21/20 10:57 Pulse Ox 93 01/21/20 10:57 Intake & Output 01/20/20 01/21/20 01/21/20 18:59 06:59 18:59 Intake Total 1484.667 / 1484.66 7 Output Total 800 / 1250 450 / 1250 Balance 684.667 / 234.667 -450 / 234.667 Urine Output (Aver age ml/kg/hr) 0.68 0.38 Intake: Intake, Oral Riner unt 420 / 420 Intake, IV Amoun t 1064.667 / 1064.66 7 0.9 % Sodium C hloride 1,000 ml 600 / 600 @ 75 mls/hr IV CONT .[id number] [facility] Rx#:[id number] Lactated Ringe rs 1,000 ml In 1, 464.667 / 464.667 000 ml @ 20 ml s/hr IVCONT .Q24H [facility] Rx#:[id number] Output: Output, Urine Am ount 800 / 1250 450 / 1250 Other: Meal Refused No NPO No Yes Breakfast % Eate n < 25 Lunch % Eaten 100% Number of Unmeas ured Voids 3 Urine Bedpan Urine Color Yellow Body Mass Index 41.1 Const: General: cooperative, healthy appearing and no acute distress Resp: Effort & Inspection: normal respiratory effort and able to speak in complete sentences Cardio: Rate: regular rate Peripheral pulses: Peripheral pulses 2+ throughout GI: Inspection: Yes normal to inspection Palpation (GI): Soft to palpation Skin: General skin exam: no rashes or lesions noted Extrem: Other: Right knee incision clean dry and intact. Nadine intact. No drainage. Calf supple nontender. Discharge Plan Discharge Patient Disposition: Home Health Service Referrals: [facility] [Outside] Muriel Mayers MD [Primary Care Provider] - Discharge Medications: New acetaminophen 325 mg Tablet 650 mg PO Q6H 7 Days Qty: 240 RF: 0 hydrocodone-acetaminophen 5-325 mg Tablet 1 tab PO Q4H PRN (Reason: Pain, Moderate (Pain Scale 4-6) 7 Days Qty: 42 RF: 0 sennosides-docusate sodium [Senna Plus] 8.6-50 mg Tablet 1 tab PO BEDTIME PRN (Reason: Constipation) 30 Days RF: 0 acetaminophen 325 mg tablet 650 mg PO Q6H PRN (Reason: pain) 30 Days RF: 0 Continued metformin 1,000 mg Tablet 1,000 mg PO BIDWM RF: 0 Discharge Orders: Discharge Order (Routine); Ordered 01/21/20 Ordered By: Regina Hannah Diet: regular diet Activity on Discharge: Use cane or walker Discharge Date/Time: 01/21/20 12:43 Activity Restrictions/Additional Instructions: * Physical Therapy for ROM 0-120, quad strength, gait training . Use walker for ambulation * Limit stair climbing, No shower, No tub bath, No driving * Continue anticoagulant * Keep Aquacel dressing clean, dry and intact. * Follow up with orthopedics in 2 weeks Visit Report Forms: Patient Portal Discharge page Care Plan Goals: Restore function of right knee Health Concerns: Follow up with Bariatric surgeon regarding chronic cholecystitis Plan of Treatment: Physical Therapy Pain management DVT prophylaxis
--- NOTE | 2020-01-21 12:07 | P.PNIM_ITS ---
Subjective Subjective Date of Service: 01/21/20 Interval History: seen and examined Feeling better Looking forward to go home prefers her Review of Systems General - no fevers or chills Cardiovascular - no chest pain Respiratory - no shortness of breath or cough Abdominal- no abdominal pain, nausea, vomiting, diarrhea Physical Exam Vital Signs and I&O and Narrative: Vital Signs and I&O: Vital Signs Temp 97.5 F 01/21/20 10:57 Pulse 92 01/21/20 10:57 Resp 18 01/21/20 10:57 BP 150/72 H 01/21/20 10:57 Pulse Ox 93 01/21/20 10:57 Intake & Output 01/20/20 01/21/20 01/21/20 18:59 06:59 18:59 Intake Total 1484.667 / 1484.66 7 Output Total 800 / 1250 450 / 1250 Balance 684.667 / 234.667 -450 / 234.667 Urine Output (Aver age ml/kg/hr) 0.68 0.38 Intake: Intake, Oral Brandon unt 420 / 420 Intake, IV Amoun t 1064.667 / 1064.66 7 0.9 % Sodium C hloride 1,000 ml 600 / 600 @ 75 mls/hr IV CONT .[id number] [facility] Rx#:[id number] Lactated Ringe rs 1,000 ml In 1, 464.667 / 464.667 000 ml @ 20 ml s/hr IVCONT .Q24H DIO Rx#:[id number] Output: Output, Urine Am ount 800 / 1250 450 / 1250 Other: Meal Refused No NPO No Yes Breakfast % Eate n < 25 Lunch % Eaten 100% Number of Unmeas ured Voids 3 Urine Bedpan Urine Color Yellow Body Mass Index 41.1 General - no acute distress, appears comfortable Cardiovascular - regular rate and rhythm, S1-S2 Lungs - normal respiratory effort, clear to auscultation bilaterally, no wheezing Abdomen - soft, nontender, no rebound regarding Extremities - no edema bilaterally Neuro - awake and alert, no focal deficits Objective Data Current Medications Generic Name Dose Route Start Last Admin Trade Name Freq PRN Reason Stop Dose Admin Acetaminophen 650 mg 01/15/20 01:00 01/21/20 07:15 Acetaminophen 325 Mg Tablet PO Not Given Q6H [facility] Hydrocodone Bitart/Acetaminophen 1 tab 01/17/20 10:38 01/21/20 10:20 Hydrocodone Bit/Acetam 5/325 Tablet PO 1 tab Q4H PRN Administration Pain, Moderate (Pain Scale 4-6 Al Hydroxide/Mg Hydroxide 15 ml 01/15/20 17:30 01/16/20 01:53 Magnesium Hydrox/Alum Hydrox 30 Ml Oral.Susp PO 15 ml Q4H PRN Administration GI Upset Diphenhydramine HCl 25 mg 01/15/20 19:06 01/18/20 23:25 Diphenhydramine Hcl 25 Mg Tablet PO 25 mg Q6H PRN Administration Itching Hydromorphone HCl 0.5 mg 01/17/20 12:57 01/21/20 06:26 Hydromorphone Hcl 0.5 Mg/0.5 Ml Syringe IVPUSH 0.5 mg Q6H PRN Administration Pain, Severe (Pain Scale 7-10) Sodium Chloride 1,000 mls @ 75 mls/hr 01/19/20 08:30 01/21/20 02:05 Ns IVCONT Not Given .[id number] [facility] Omeprazole 20 mg 01/19/20 16:24 01/21/20 05:52 Omeprazole 20 Mg Capsule.Dr PO Not Given DAILY@0630 [facility] Ondansetron HCl 4 mg 01/15/20 00:00 01/15/20 13:01 Ondansetron Hcl 4 Mg/2 Ml Vial IVPUSH 4 mg Q8H PRN Administration Nausea and Vomiting Oxycodone HCl 5 mg 01/21/20 10:33 01/21/20 11:19 Oxycodone Hcl Immed Release 5 Mg Tablet PO 5 mg Q6H PRN Administration Pain, Severe (Pain Scale 7-10) Polyethylene Glycol 17 gm 01/16/20 09:00 01/21/20 10:20 Polyethylene Glycol 3350 17 Gm Powd.Pack PO 17 gm DAILY [facility] Administration Senna/Docusate Sodium 1 tab 01/15/20 00:00 01/21/20 10:21 Sennosides/Docusate Sodium Tablet PO 1 tab BEDTIME PRN Administration Constipation Sodium Biphosphate/Sodium Phosphate 133 ml 01/20/20 13:30 Sodium Phosphate,Lane-Dibasic 133 Ml Enema LA ONCE [facility] Labs CBC & Chem 7: 01/20/20 06:12 01/20/20 06:12 Progress Note: A&P (1) Status post total right knee replacement: Problem details: Ms. Chen Is a 61-year-old female who presented to our office for right knee pain. She was found to have osteoarthritis of the right knee and failed all conservative measures. She continued to have pain with daily activities therefore she consented to move forward with right total knee arthroplasty. Status: Acute Assessment and Plan: This is a 69-year-old female with a past medical history of diabetes, previous DVT on Eliquis, osteoarthritis who was admitted for elective TKA. Her hospital course has been further complicated by acute blood loss anemia, possible gastritis. 1. Acute blood loss anemia, ? Gastritis no bleeding noted on upper Endo -- some gastritis possibly post-op anemia oral PPI recommended by GI d/w Dr. Loo -- okay to restart OAC from GI perspective. 2. Probable chronic maxim (per surg eval / note) pt prefers to f/u with her bariatric surgeon 3.Hypotension resolved 4. isolated low-grade temperature post op, resolved 5. diabetes mellitus Continue with point of cares and sliding scale coverage as needed 6. history of DVT restart OAC 7. S/P R TKA mgmt per ortho will follow along if remains in house Quality VTE Deep Vein Thrombosis/Pulmonary Embolism Present on Admission: No
--- NOTE | 2020-01-21 12:42 | W.MHC.F2F ---
Service Date Service Date: 01/21/20 Reasons for Services overseeing care: Matteo Merchant MD Homebound: Leaving the home is medically contraindicated at this time without the asist of a device and/or another person due th the listed conditions above and below. Certification: Based on the above findings, I certify that this patient is confined to the home and needs intermittent alf care, physical therapy and/or speech therapy, or continues to need occupational therapy. The patient is under my care, and I have initiated the establishment of the plan of care. The patient will be followed by a physician who will periodically review the plan of care.
== END 2020-01-21 12:43 | disposition home health service (06) | DRG 470 ==
LOC: HO.SSS 01-19 09:56 → HO.S3 01-19 09:56
PROVIDERS: Internal Medicine; Physician Assistant; Admitting Provider Family Medicine; PCP Internal Medicine; Visit Provider Orthopaedic Surgery
PROC: 0DJ08ZZ Inspection of Upper Intestinal Tract, Via Natural or Artificial Opening Endoscopic (ICD-10-PCS; CPT 43235; principal; 2020-01-19 14:30)
DX: M17.11 Unilateral primary osteoarthritis, right knee (principal); E66.2 Morbid (severe) obesity with alveolar hypoventilation; Z68.41 Body mass index [BMI] 40.0-44.9, adult; D62 Acute posthemorrhagic anemia; G89.29 Other chronic pain; E11.9 Type 2 diabetes mellitus without complications; K29.70 Gastritis, unspecified, without bleeding; T39.8X5A Adverse effect of other nonopioid analgesics and antipyretics, not elsewhere classified, initial encounter; Y92.239 Unspecified place in hospital as the place of occurrence of the external cause; I95.9 Hypotension, unspecified; K81.1 Chronic cholecystitis; E86.0 Dehydration; Z98.84 Bariatric surgery status; Z86.711 Personal history of pulmonary embolism; Z88.5 Allergy status to narcotic agent; Z79.01 Long term (current) use of anticoagulants; Z79.84 Long term (current) use of oral hypoglycemic drugs; Z79.899 Other long term (current) drug therapy
CPT/HCPCS: 36415; 71045; 73560; 76700; 78226; 80048; 80076; 81003; 82272; 82947; 85025; 86850; 86900; 86901; 86920; 86923; 88305; 88311; 94660; 97110; 97116; 97162; 97530; 99231; A9537; J0131; J0690; J1170; J1885; J2250; J2405; P9016; Q0163; U0003

== ENCOUNTER → 2020-01-30 09:02 | Outpatient (BNVA) | payer MEDICARE, OTHER, SELFPAY | PROVIDERS: PCP Internal Medicine; Visit Provider Physician Assistant | DX: Z47.1 Aftercare following joint replacement surgery (principal); Z48.02 Encounter for removal of sutures; Z96.651 Presence of right artificial knee joint | CPT/HCPCS: 99212 ==

== ENCOUNTER → 2020-02-16 10:19 | Outpatient (BNVA) | payer MEDICARE, OTHER, SELFPAY | PROVIDERS: PCP Internal Medicine; Referring Provider Internal Medicine; Visit Provider Orthopaedic Surgery | DX: T81.41XA Infection following a procedure, superficial incisional surgical site, initial encounter (principal); Z96.651 Presence of right artificial knee joint | CPT/HCPCS: 99212 ==

== ENCOUNTER → 2020-03-01 10:48 | Outpatient (BNVA) | payer MEDICARE, OTHER, SELFPAY | PROVIDERS: Visit Provider Orthopaedic Surgery | DX: T81.41XD Infection following a procedure, superficial incisional surgical site, subsequent encounter (principal); Z96.651 Presence of right artificial knee joint | CPT/HCPCS: 99212 ==

== ENCOUNTER → 2020-04-22 13:48 | Outpatient (BNVA) | payer MEDICARE, OTHER, SELFPAY | PROVIDERS: PCP Internal Medicine; Visit Provider Orthopaedic Surgery | DX: Z47.1 Aftercare following joint replacement surgery (principal); M17.12 Unilateral primary osteoarthritis, left knee; Z96.651 Presence of right artificial knee joint | CPT/HCPCS: 99212 ==

== ENCOUNTER 2020-07-23 08:28 | Outpatient (REF) | payer MEDICARE, OTHER, SELFPAY ==
--- NOTE | ~2020-07-23 | XR_ITS ---
EXAMINATION: XR knee LT 2V, XR knee standing BI CLINICAL INFORMATION: Reason for Exam M25.562 - Pain in left knee COMPARISON: None available at the time of this dictation. TECHNIQUE: Bilateral frontal standing, left lateral and patella sunrise view. FINDINGS: BONES: No fracture or dislocation is present. JOINTS: Narrowing of joint spaces and developed osteophytes from the edges of articular surfaces suggest degenerative osteoarthritis. SOFT TISSUE: Normal XR/XR knee LT 2V IMPRESSION: Early advanced degenerative osteoarthritis left knee involving the medial more than lateral compartments. Right total knee replacement prosthesis in place.
--- NOTE | ~2020-07-23 | XR_ITS ---
EXAMINATION: XR knee LT 2V, XR knee standing BI CLINICAL INFORMATION: Reason for Exam M25.562 - Pain in left knee COMPARISON: None available at the time of this dictation. TECHNIQUE: Bilateral frontal standing, left lateral and patella sunrise view. FINDINGS: BONES: No fracture or dislocation is present. JOINTS: Narrowing of joint spaces and developed osteophytes from the edges of articular surfaces suggest degenerative osteoarthritis. SOFT TISSUE: Normal XR/XR knee standing BI IMPRESSION: Early advanced degenerative osteoarthritis left knee involving the medial more than lateral compartments. Right total knee replacement prosthesis in place.
== END 2020-07-23 08:29 | disposition home or self-care (01) ==
LOC: HO.HOSX 08:28
PROVIDERS: Visit Provider Physician Assistant
DX: M25.562 Pain in left knee (principal); M25.561 Pain in right knee; M17.12 Unilateral primary osteoarthritis, left knee
CPT/HCPCS: 73560; 73565; 99212

== ENCOUNTER 2020-07-27 05:57 | Inpatient (IN) | payer MEDICARE, OTHER, SELFPAY ==
[2020-07-23 11:52] VITALS: BP 142/67; PULSE 64; RESP 20; O2SAT 96; BMI 40.0
--- NOTE | 2020-07-23 12:05 | P.CONAN_ITS ---
Documented by User: Tameka Misa 07/23/20 12:32 HPI - Anesthesia Eval Consult details Narrative: 69yo F for L TKA s/p R TKA with Spinal, block 12/2019 Eliquis for h/o PE 2017 PCP cleared [facility] Active Problems Active Problems: All Active Problems (Updated 07/22/20 @ 11:27 by Farida Joya) Postoperative abscess involving suture (Acute) Status post total right knee replacement (Acute) Past Medical History Medical History Arthritis Back pain Diabetes mellitus Elevated cholesterol Herniated cervical disc History of palpitations Hx of pulmonary embolus On anticoagulant therapy ESTEFANÍA treated with BiPAP Postoperative abscess involving suture Sleep apnea Family History Family History Daughter No problems noted. Son No problems noted. Family history of problems with anesthesia: No Surgical History Surgical History History of section History of colon resection Hx of hernia repair Hx of hysterectomy S/P laparoscopic sleeve gastrectomy Status post total right knee replacement History of Problems with Anesthesia: No Social History Social History Are you a primary critical care physician to a significant other at home: No Do you presently have visiting nurse or other home services: No Smoking Status: Never smoker Second Hand Smoke Exposure: No Use of substances other than those prescribed or required for medical reasons: No Have you been hit, kicked, punched, or otherwise hurt by someone within the past year? If so, by whom?: No Advance Directives: No Advance Directives Information Provided: No Advance Directives on File: No Recently lost weight without trying: No service: No Current occupational status: retired Narrative Narrative: No recent illness. No CP/SOB. Meds Allergies Allergy/AdvReac Type Severity Reaction Status Date / Time enoxaparin [From LOVENOX] Allergy Severe SEVERE Verified 07/27/20 06:38 RASH/ITCHING-ABDOMEN morphine [MORPHINE] Allergy Severe ITCHING, Verified 07/27/20 06:38 itchy Home Medications Medication Instructions Recorded Confirmed Last Taken Type apixaban 5 mg tablet 5 mg PO BID 01/14/20 07/23/20 07/22/20 History gabapentin 600 mg tablet 600 mg PO TID 01/14/20 07/27/20 Unknown History metformin 500 mg PO BIDWM 01/14/20 07/27/20 Unknown History bisacodyl 1 tab PO BID 07/23/20 07/23/20 Unknown History docusate sodium [DOK] 1 cap PO BID 07/23/20 07/23/20 Unknown History ergocalciferol (vitamin D2) 1 cap PO QWEEK 07/23/20 07/23/20 07/21/20 History furosemide 1 tab PO QAM 07/23/20 07/23/20 Unknown History linaclotide [Linzess] 1 cap PO DAILY 07/23/20 07/23/20 Unknown History atorvastatin 1 tab PO Q OTHER DAY 07/27/20 07/27/20 Unknown History Exam Exam Date and Time: July 23, 2020 1205 Height,Weight and Vital Signs: Height 5 ft 1 in Weight 96.162 kg Last Vital Signs Pulse 64 07/23/20 11:52 Resp 20 07/23/20 11:52 BP 142/67 H 07/23/20 11:52 Pulse Ox 96 07/23/20 11:52 Pertinent Lab Results Pertinent Lab Results: Labs from outside facility 06/2020 CBC WNL Lytes WNL Bun/Creat WNL A1C 5.7 Narrative Narrative: EKG 06/30/20: NSR, low volt EKG, no change from prev Airway Mallampati Class: I Neck ROM: Full Partial: Lower Heart: RRR Lungs: CTAB Assessment and Plan Assessment Anesthesia Assessment: Anesthesia Plan Discussed and PAT Visit Documented by User: Prakash Lino MD 07/27/20 08:43 [facility] Past Medical History Medical History Arthritis Back pain Diabetes mellitus Elevated cholesterol Herniated cervical disc History of palpitations Hx of pulmonary embolus On anticoagulant therapy ESTEFANÍA treated with BiPAP Postoperative abscess involving suture Sleep apnea Family History Family History Daughter No problems noted. Son No problems noted. Surgical History Surgical History History of section History of colon resection Hx of hernia repair Hx of hysterectomy S/P laparoscopic sleeve gastrectomy Status post total right knee replacement Social History Social History Are you a primary critical care physician to a significant other at home: No Do you presently have visiting nurse or other home services: No Smoking Status: Never smoker Second Hand Smoke Exposure: No Use of substances other than those prescribed or required for medical reasons: No Have you been hit, kicked, punched, or otherwise hurt by someone within the past year? If so, by whom?: No Advance Directives: No Advance Directives Information Provided: No Advance Directives on File: No Recently lost weight without trying: No service: No Current occupational status: retired [employer] Allergies Allergy/AdvReac Type Severity Reaction Status Date / Time enoxaparin [From LOVENOX] Allergy Severe SEVERE Verified 07/27/20 06:38 RASH/ITCHING-ABDOMEN morphine [MORPHINE] Allergy Severe ITCHING, Verified 07/27/20 06:38 itchy Home Medications Medication Instructions Recorded Confirmed Last Taken Type apixaban 5 mg tablet 5 mg PO BID 01/14/20 07/23/20 07/22/20 History gabapentin 600 mg tablet 600 mg PO TID 01/14/20 07/27/20 Unknown History metformin 500 mg PO BIDWM 01/14/20 07/27/20 Unknown History bisacodyl 1 tab PO BID 07/23/20 07/23/20 Unknown History docusate sodium [DOK] 1 cap PO BID 07/23/20 07/23/20 Unknown History ergocalciferol (vitamin D2) 1 cap PO QWEEK 07/23/20 07/23/20 07/21/20 History furosemide 1 tab PO QAM 07/23/20 07/23/20 Unknown History linaclotide [Linzess] 1 cap PO DAILY 07/23/20 07/23/20 Unknown History atorvastatin 1 tab PO Q OTHER DAY 07/27/20 07/27/20 Unknown History Assessment and Plan Assessment Anesthesia Assessment: Anesthesia Plan Discussed and Chart Reviewed Final Anesthetic Review NPO: Yes ASA Class: III Final Preanesthetic Review: No Changes in Pt Med Stat, Meds/Allgs Chart Reviewed, Consent Obtained/Reviewed and Anes Risks/Benef Reviewed Patient Risk: Intermediate Procedure Risk: Intermediate Anesthetic Plan Anesthetic Plan: GA (backup), Spinal and Regional Block Disposition: Standard PACU
[2020-07-23 15:16] LABS: MRSA Nasal PCR NEGATIVE (Negative); SA Nasal PCR NEGATIVE (Negative)
[2020-07-27] VITALS (29 sets, daily range): BP systolic 110–148; BP diastolic 55–75; PULSE 70–87; RESP 12–20; TEMP 35.8–36.6; O2SAT 91–100
--- NOTE | ~2020-07-27 | XR_ITS ---
EXAMINATION: XR KNEE, LEFT CLINICAL INFORMATION: Postop COMPARISON: Previous x-rays most recent 07/23/2020 TECHNIQUE: 2 of the left knee. FINDINGS: There is a new 3 component left knee replacement in satisfactory position. No fracture or dislocation is seen. There are postoperative changes to the soft tissues. XR/XR knee LT 2V IMPRESSION: Satisfactory appearance of left knee replacement.
[2020-07-27 06:31] LABS: Glucose, Whole Blood 68 mg/dL (60-115)
[2020-07-27 06:47] LABS: COVID-19 Test Negative (Negative); IDNOW Serial# 9DD0AD1C
[2020-07-27] MEDS: Gabapentin 600 MG TABLET PO (07:17)
[2020-07-27] MEDS: Lactated Ringers 1,000 ML 100 ML IVCONT (07:18)
--- NOTE | 2020-07-27 07:26 | MHC.SHP ---
Pre-Procedural Eval Section A The patient is an INPATIENT: No Changes since office visit: Yes Patient answered all questions; No Cold of Flu in the past 2 weeks, No New Medical Problems and No Changes in Medication The History & Physical has been completed within 30 days and I have reviewed it.: Yes Section B Chief Complaint: LEFT TOTAL KNEE ARTHROPLASTY Allergies: Allergies Allergy/AdvReac Type Severity Reaction Status Date / Time enoxaparin [From LOVENOX] Allergy Severe SEVERE Verified 07/27/20 06:38 RASH/ITCHING-ABDOMEN morphine [MORPHINE] Allergy Severe ITCHING, Verified 07/27/20 06:38 itchy Plan I have reviewed the history and physical and performed a pertinent physical examination on my patient. No changes have occurred unless specified.
--- NOTE | 2020-07-27 07:36 | PC.NURSE ---
PATIENT WAS GIVEN D5 IN [address] LOPEZ FOR BS 68. PATIENT ASYMPTOMATIC. DR. LOPEZ COMPLETED NERVE BLOCK AT BEDSIDE. PT TOLERATED WELL.
--- NOTE | 2020-07-27 10:16 | PM.OP ---
Brief Operative Note Date of Service: 07/27/20 Pre-op diagnosis: left knee OA Post-op diagnosis: same Procedure: Left TKA Implants: [place] [employer] Surgeon: Matteo Merchant MD Anesthesia: GETA, regional and local Estimated blood loss (mL): 350 IV fluids (mL): 1,000 Pathology: other Condition: stable Disposition: PACU
--- NOTE | 2020-07-27 10:18 | W.PM.OPN ---
Operative Note Operative Note Date of Service: 07/27/20 Narrative: Pre-op diagnosis: left knee OA Post-op diagnosis: same Procedure: Left TKA Implants: [place] [employer] 06/16/09 Surgeon: Matteo Merchant MD Anesthesia: GETA, regional and local Estimated blood loss (mL): 350 IV fluids (mL): 1,000 Pathology: other Condition: stable Disposition: PACU Procedure in detail: Patient was brought to the operating room and prepped and draped in standard sterile fashion. A time-out was called to identify proper site proper procedure proper surgeon IV antibiotics were administered. I began by making a midline incision down to the retinaculum and performed a medial parapatellar arthrotomy. The patella was translated laterally and the knee was flexed up. I performed a small medial peel and resected the infrapatellar fat pad. There was tricompartmental OA with eburnation of the medial compartment. [place]'s line was then used to drill my intramedullary femoral guide and my distal femur cut was made in 5 degrees of valgus. I then measured a 3 femur, drilled my epicondylar axis using the posterior condyles as reference. I then placed my cutting guide and made my anterior posterior and chamfer cuts protecting the soft tissues at all times. Once I was happy with my cut I turned my attention to the tibia. I resected the meniscii and, while protecting the PCL with a pickle fork retractor, I made my distal tibial cut In line with the tibial crest and with a 3 degree posterior slope . An extension block was used to confirm appropriate amount of bony resection. I then trialed a 3 tibia and once I was happy that there was good tibial coverage I placed my trial and with the trial femur in place took the knee through range of motion. I was happy with the extension and flexion as well as the stability at 0, 30 and 90 degrees. I then turned my attention to the patella where I removed 1 cm from the undersurface of the patella and then trialed a patellar button of appropriate dimensions. Again the knee was taken through range of motion I was happy with the tracking. I then returned to the femur and drilled my femoral lug holes and prepared the tibia. Femoral bone plug was then placed and the knee was irrigated copiously. I then press fit the patella, tibia and femur in standard fashion. I trialed different inserts until I found the appropriate size, in this case a 10mm insert was used. I then placed the final insert and performed a 3 minutes iodine soak. I injected an addition 20 ml of 7.5% marcaine with epi into the skin around the incision. The knee was then closed with a running Quill suture, a 3 0 Vicryl and chacorta on the skin. Patient was then placed in sterile dressing and brought to recovery room in stable condition there were no known complications.
[2020-07-27 10:51] LABS: Glucose, Whole Blood 164 mg/dL (60-115)
[2020-07-27] MEDS: HYDROmorphone HCl 0.5 MG/0.5 ML SYRINGE 0.25 MG IVPUSH ×4 (11:44→20:10)
[2020-07-27] MEDS: oxyCODONE HCl Immed Release 5 MG TABLET PO (13:20)
[2020-07-27] MEDS: ceFAZolin Sodium/Dextrose,Iso 2 GM/50 ML PIGGYBACK IV (13:54)
--- NOTE | 2020-07-27 15:58 | PM.IMHP ---
History of Present Illness Date of Service: 07/27/20 Chief Complaint: Medical care A 69 years old lady with PMHx of ESTEFANÍA, Hx PE on Eliquis?, DM who presented to hospital for elective left knee arthroplasty. Hospitalist team asked to evaluated for medical issues. Review of Systems Review of Systems: No fever, chills or weakness No chest pain, palpitation No shortness of breath or coughing No abdominal pain, nausea or vomiting No urinary symptoms No any rash or wounds pain in her knee PMFSH Medical History (Updated 07/27/20 @ 16:01 by Augustine Kirby MD) Arthritis Back pain Diabetes mellitus Elevated cholesterol Herniated cervical disc History of palpitations Hx of pulmonary embolus On anticoagulant therapy ESTEFANÍA treated with BiPAP Postoperative abscess involving suture Sleep apnea Family History Daughter No problems noted. Son No problems noted. Surgical History (Updated 07/27/20 @ 16:02 by Augustine Kirby MD) History of section History of colon resection Hx of hernia repair Hx of hysterectomy S/P laparoscopic sleeve gastrectomy Status post total right knee replacement Social History Are you a primary rn primary care to a significant other at home: No Do you presently have visiting nurse or other home services: No Smoking Status: Never smoker Second Hand Smoke Exposure: No Use of substances other than those prescribed or required for medical reasons: No Have you been hit, kicked, punched, or otherwise hurt by someone within the past year? If so, by whom?: No Advance Directives: No Advance Directives Information Provided: No Advance Directives on File: No Recently lost weight without trying: No service: No Current occupational status: retired Meds Allergies Allergy/AdvReac Type Severity Reaction Status Date / Time enoxaparin [From LOVENOX] Allergy Severe SEVERE Verified 07/27/20 06:38 RASH/ITCHING-ABDOMEN morphine [MORPHINE] Allergy Severe ITCHING, Verified 07/27/20 06:38 itchy Active Medications: Current Medications Generic Name Dose Route Start Last Admin Trade Name Freq PRN Reason Stop Dose Admin Acetaminophen 650 mg 07/27/20 14:40 Acetaminophen 325 Mg Tablet PO Q6H PRN Pain, Mild (Pain Scale 1-3) Al Hydroxide/Mg Hydroxide 30 ml 07/27/20 14:40 Magnesium Hydrox/Alum Hydrox 30 Ml Oral.Susp PO Q4H PRN Heartburn/Nausea Atorvastatin Calcium 20 mg 07/27/20 15:00 Atorvastatin Calcium 20 Mg Tablet PO Q48H [facility] Bisacodyl 5 mg 07/28/20 09:00 Bisacodyl 5 Mg Tablet.Dr PO BID [facility] Celecoxib 200 mg 07/27/20 21:00 Celecoxib 200 Mg Capsule PO BID [facility] Docusate Sodium 100 mg 07/27/20 14:40 Docusate Sodium 100 Mg Capsule PO DAILY PRN Constipation Ergocalciferol 1,250 mcg 07/28/20 09:00 Ergocalciferol (Vitamin D2) 1,250 Mcg Capsule PO [facility] Hydromorphone HCl 0.25 mg 07/27/20 14:40 Hydromorphone Hcl 0.5 Mg/0.5 Ml Syringe IVPUSH Q4H PRN Pain, Severe (Pain Scale 7-10) Sodium Chloride 1,000 mls @ 80 mls/hr 07/27/20 14:40 IVCONT .[id number] [facility] Insulin Human Lispro 0 unit 07/27/20 14:40 07/27/20 15:54 Insulin Lispro 100 Unit/Ml 3 Ml Vial SUBCUT 07/28/20 14:40 Not Given QIDACHS [facility] Protocol Naloxone HCl 0.2 mg 07/27/20 14:40 Naloxone Hcl 0.4 Mg/Ml Vial IVPUSH Q2M PRN Excessive sedation or RR < 8 Ondansetron HCl 4 mg 07/27/20 14:40 Ondansetron Hcl 4 Mg/2 Ml Vial IVPUSH Q8H PRN Nausea and Vomiting Oxycodone HCl 5 mg 07/27/20 14:40 Oxycodone Hcl Immed Release 5 Mg Tablet PO Q4H PRN Pain, Moderate (Pain Scale 4-6 Sodium Chloride 3 ml 07/27/20 16:00 0.9 % Sodium Chloride Flush 3 Ml Syringe IVFLUSH QSHIFT [facility] Home Medications Medication Instructions Recorded Confirmed Last Taken Type apixaban 5 mg tablet 5 mg PO BID 01/14/20 07/23/20 07/22/20 History gabapentin 600 mg tablet 600 mg PO TID 01/14/20 07/27/20 Unknown History metformin 500 mg PO BIDWM 01/14/20 07/27/20 Unknown History bisacodyl 1 tab PO BID 07/23/20 07/23/20 Unknown History docusate sodium [DOK] 1 cap PO BID 07/23/20 07/23/20 Unknown History ergocalciferol (vitamin D2) 1 cap PO QWEEK 07/23/20 07/23/20 07/21/20 History furosemide 1 tab PO QAM 07/23/20 07/23/20 Unknown History linaclotide [Linzess] 1 cap PO DAILY 07/23/20 07/23/20 Unknown History atorvastatin 1 tab PO Q OTHER DAY 07/27/20 07/27/20 Unknown History Physical Exam Vital Signs and Narrative: Vital Signs: Last Vital Signs Temp 97.8 F 07/27/20 15:31 Pulse 74 07/27/20 15:31 Resp 14 07/27/20 15:31 BP 110/55 L 07/27/20 15:31 Pulse Ox 97 07/27/20 15:31 Body Mass Index 40.0 Const: Other: Constitutional : Alert, oriented, not in distress Neck : Normal inspection, Supple Cardiovascular : RRR, S1 S2, no lower extremity edema Respiratory : Good bilateral air entry, no crackles, wheezes or rhonchi, on CPAP Gastrointestinal: soft, lax, Normal bowel sounds, Non tender Skin : Warm/Dry, No rash, left knee covered with dressing. Neurological : Alert & oriented x3, No focal deficit Results Labs Labs: Laboratory Results - last 24 hr 07/27/20 07/27/20 07/27/20 05:55 06:28 10:48 POC Glucose 68 164 H COVID-19 ([facility]IA) Negative COVID-19 Clin Com See Note Imaging Radiologist's Impressions: Impressions Knee X-Ray 07/27/20 11:29 IMPRESSION: Satisfactory appearance of left knee replacement. Assessment and Plan (1) Osteoarthritis of left knee: Status: Acute (2) Postoperative abscess involving suture: Status: Acute (3) ESTEFANÍA treated with BiPAP: Status: Acute (4) Status post total right knee replacement: Status: Acute A 69 years old lady with PMHx of ESTEFANÍA, Hx PE on Eliquis, DM who presented to hospital for elective left knee arthroplasty. DM II POC Hold Metformin SSI ESTEFANÍA CPAP bedtime and w naps Hx PE On Eliquis Needs to be resumed tomorrow if no contraindication Left knee arthroplasy POD 0 Followed by orthopedics team Thank you for the consult will follow the patient with you.
[2020-07-27] MEDS: Atorvastatin Calcium 20 MG TABLET PO (16:12)
[2020-07-27] MEDS: Sodium Chloride 0.45 % 1,000 ML 80 ML IVCONT ×2 (16:13→19:43)
[2020-07-27 17:28] LABS: Glucose, Whole Blood 161 mg/dL (60-115)
[2020-07-27] MEDS: Insulin Lispro 100 UNIT/ML 3 ML VIAL SUBCUT (17:37)
[2020-07-27 20:19] LABS: Glucose, Whole Blood 129 mg/dL (60-115)
[2020-07-27] MEDS: Celecoxib 200 MG CAPSULE PO (20:24)
[2020-07-28] VITALS (8 sets, daily range): BP systolic 110–147; BP diastolic 54–71; PULSE 73–120; RESP 16–19; TEMP 36.3–37.2; O2SAT 92–99
[2020-07-28] MEDS: HYDROmorphone HCl 0.5 MG/0.5 ML SYRINGE 0.25 MG IVPUSH ×4 (01:08→21:39)
[2020-07-28] MEDS: oxyCODONE HCl Immed Release 5 MG TABLET PO ×2 (02:21→07:14)
[2020-07-28 06:43] LABS: Hematocrit 28.5 % (37-47)
[2020-07-28] MEDS: Apixaban 2.5 MG TABLET PO ×2 (07:14→08:15)
[2020-07-28] MEDS: Celecoxib 200 MG CAPSULE PO ×2 (07:14→21:40)
[2020-07-28] MEDS: bisacodyL 5 MG TABLET.DR PO ×2 (07:14→21:40)
[2020-07-28] MEDS: 0.9 % Sodium Chloride Flush 3 ML SYRINGE IVFLUSH (07:15)
[2020-07-28] MEDS: Ergocalciferol (Vitamin D2) 1,250 MCG CAPSULE 1250 MCG PO (07:18)
--- NOTE | 2020-07-28 07:43 | PM.PNORT ---
Subjective Subjective Date of Service: 07/28/20 Interval history: POD1 s/p left TKA. Patient resting comfortably in bed. States that she has moderate pain. We will increase Oxycodone to 10mg. No overnight events. No additional complaints. Physical Exam Vital Signs: Vital Signs: Last Vital Signs Temp 98.9 F 07/28/20 04:00 Pulse 73 07/28/20 04:00 Resp 16 07/28/20 04:00 BP 110/54 L 07/28/20 04:00 Pulse Ox 96 07/28/20 04:00 Body Mass Index 40.0 Const: General: cooperative, healthy appearing and no acute distress Resp: Effort & Inspection: normal respiratory effort and able to speak in complete sentences Cardio: Rate: regular rate Peripheral pulses: Peripheral pulses 2+ throughout GI: Palpation (GI): Soft to palpation Skin: Lesions: no lesions Rashes: no rashes Extrem: Other: Left knee no ecchymosis, redness, or rainage. Bandage is clean. dry, and intact. NVI Progress Note: A&P Assessment and plan (1) Status post total left knee replacement: Status: Acute Assessment and Plan: Continue pain mgmnt Begin Eliquis 2.5 qd today for dvt ppx Eliquis will resume normal dosing at 2.5 BID 07/29/20 Continue PT for left TKA Dispo planning-Pending PT eval, pain mgmnt Fall Risk Details Current Medications: Current Medications Generic Name Dose Route Start Last Admin Trade Name Freq PRN Reason Stop Dose Admin Acetaminophen 650 mg 07/27/20 14:40 Acetaminophen 325 Mg Tablet PO Q6H PRN Pain, Mild (Pain Scale 1-3) Al Hydroxide/Mg Hydroxide 30 ml 07/27/20 14:40 Magnesium Hydrox/Alum Hydrox 30 Ml Oral.Susp PO Q4H PRN Heartburn/Nausea Apixaban 2.5 mg 07/28/20 09:00 Apixaban 2.5 Mg Tablet PO 07/28/20 09:01 ONCE ONE Apixaban 2.5 mg 07/29/20 09:00 Apixaban 2.5 Mg Tablet PO BID DIO Atorvastatin Calcium 20 mg 07/27/20 15:00 07/27/20 16:12 Atorvastatin Calcium 20 Mg Tablet PO 20 mg Q48H DIO Administration Bisacodyl 5 mg 07/28/20 09:00 07/28/20 07:14 Bisacodyl 5 Mg Tablet.Dr PO 5 mg BID DIO Administration Celecoxib 200 mg 07/27/20 21:00 07/28/20 07:14 Celecoxib 200 Mg Capsule PO 200 mg BID DIO Administration Docusate Sodium 100 mg 07/27/20 14:40 Docusate Sodium 100 Mg Capsule PO DAILY PRN Constipation Ergocalciferol 1,250 mcg 07/28/20 09:00 07/28/20 07:18 Ergocalciferol (Vitamin D2) 1,250 Mcg Capsule PO 1,250 mcg We DIO Administration Hydromorphone HCl 0.25 mg 07/27/20 14:40 07/28/20 06:34 Hydromorphone Hcl 0.5 Mg/0.5 Ml Syringe IVPUSH 0.25 mg Q4H PRN Administration Pain, Severe (Pain Scale 7-10) Sodium Chloride 1,000 mls @ 80 mls/hr 07/27/20 14:40 07/27/20 19:43 IVCONT 80 mls/hr .[id number] DIO Administration Insulin Human Lispro 0 unit 07/27/20 14:40 07/28/20 07:39 Insulin Lispro 100 Unit/Ml 3 Ml Vial SUBCUT 07/28/20 14:40 Not Given QIDACHS [facility] Protocol Naloxone HCl 0.2 mg 07/27/20 14:40 Naloxone Hcl 0.4 Mg/Ml Vial IVPUSH Q2M PRN Excessive sedation or RR < 8 Ondansetron HCl 4 mg 07/27/20 14:40 Ondansetron Hcl 4 Mg/2 Ml Vial IVPUSH Q8H PRN Nausea and Vomiting Oxycodone HCl 5 mg 07/27/20 14:40 07/28/20 07:14 Oxycodone Hcl Immed Release 5 Mg Tablet PO 5 mg Q4H PRN Administration Pain, Moderate (Pain Scale 4-6 Sodium Chloride 3 ml 07/27/20 16:00 07/28/20 07:15 0.9 % Sodium Chloride Flush 3 Ml Syringe IVFLUSH 3 ml QSHIFT DIO Administration Time Spent With Patient Time: Total time spent is greater than 50% in coordination of care (as documented) at patient's floor/unit and/or counseling patient: Time with patient: less than 15 minutes
[2020-07-28] MEDS: oxyCODONE HCl Immed Release 5 MG TABLET 10 MG PO ×2 (08:16→12:40)
[2020-07-28 08:24] LABS: Glucose, Whole Blood 108 mg/dL (60-115)
--- NOTE | 2020-07-28 10:52 | MHC.CM.PN ---
This clinical writer met with patient and son at bedside. Pt A&O able to answer questions appropriatley. PT recommends home with services. Pt requesting referral to [facility]. Son and daughter will be able to support pt in the home. Pt lives in 2 family home with 4 steps to enter the home. Reports having walker @ home. Son to transport @ D/C.
[2020-07-28 12:36] LABS: Glucose, Whole Blood 96 mg/dL (60-115)
[2020-07-28] MEDS: Acetaminophen 325 MG TABLET 650 MG PO (12:40)
--- NOTE | 2020-07-28 12:59 | HO.PM.IMPN ---
Subjective Subjective Date of Service: 07/28/20 Interval History: pain tolerable Cardiovascular Cardiovascular: Reports no additional cardiovascular complaints Gastrointestinal Gastrointestinal: Reports no additional gastrointestinal complaints Physical Exam Vital Signs: Vital Signs: Last Vital Signs Temp 97.5 F 07/28/20 11:57 Pulse 84 07/28/20 11:57 Resp 19 07/28/20 11:57 BP 128/59 L 07/28/20 11:57 Pulse Ox 99 07/28/20 11:57 Body Mass Index 40.0 General: AO X 3, no acute distress Resp: CTA bilateral CVS: S1,S2,RRR GI: soft, non tender, non distended Neuro: motor grossly intact Psych: appropriate affect Objective Data Current Medications Generic Name Dose Route Start Last Admin Trade Name Freq PRN Reason Stop Dose Admin Acetaminophen 650 mg 07/27/20 14:40 07/28/20 12:40 Acetaminophen 325 Mg Tablet PO 650 mg Q6H PRN Administration Pain, Mild (Pain Scale 1-3) Al Hydroxide/Mg Hydroxide 30 ml 07/27/20 14:40 Magnesium Hydrox/Alum Hydrox 30 Ml Oral.Susp PO Q4H PRN Heartburn/Nausea Apixaban 5 mg 07/28/20 21:00 Apixaban 5 Mg Tablet PO BID DIO Atorvastatin Calcium 20 mg 07/27/20 15:00 07/27/20 16:12 Atorvastatin Calcium 20 Mg Tablet PO 20 mg Q48H DIO Administration Bisacodyl 5 mg 07/28/20 09:00 07/28/20 07:14 Bisacodyl 5 Mg Tablet.Dr PO 5 mg BID DIO Administration Celecoxib 200 mg 07/27/20 21:00 07/28/20 07:14 Celecoxib 200 Mg Capsule PO 200 mg BID DIO Administration Docusate Sodium 100 mg 07/27/20 14:40 Docusate Sodium 100 Mg Capsule PO DAILY PRN Constipation Ergocalciferol 1,250 mcg 07/28/20 09:00 07/28/20 07:18 Ergocalciferol (Vitamin D2) 1,250 Mcg Capsule PO 1,250 mcg We DIO Administration Hydromorphone HCl 0.25 mg 07/27/20 14:40 07/28/20 10:53 Hydromorphone Hcl 0.5 Mg/0.5 Ml Syringe IVPUSH 0.25 mg Q4H PRN Administration Pain, Severe (Pain Scale 7-10) Sodium Chloride 1,000 mls @ 80 mls/hr 07/27/20 14:40 07/28/20 08:17 IVCONT Infused .[id number] [facility] Infusion Insulin Human Lispro 0 unit 07/27/20 14:40 07/28/20 12:32 Insulin Lispro 100 Unit/Ml 3 Ml Vial SUBCUT 07/28/20 14:40 Not Given QIDACHS [facility] Protocol Naloxone HCl 0.2 mg 07/27/20 14:40 Naloxone Hcl 0.4 Mg/Ml Vial IVPUSH Q2M PRN Excessive sedation or RR < 8 Ondansetron HCl 4 mg 07/27/20 14:40 Ondansetron Hcl 4 Mg/2 Ml Vial IVPUSH Q8H PRN Nausea and Vomiting Oxycodone HCl 10 mg 07/28/20 07:43 07/28/20 12:40 Oxycodone Hcl Immed Release 5 Mg Tablet PO 10 mg Q4H PRN Administration Pain, Moderate (Pain Scale 4-6 Sodium Chloride 3 ml 07/27/20 16:00 07/28/20 07:15 0.9 % Sodium Chloride Flush 3 Ml Syringe IVFLUSH 3 ml QSHIFT [facility] Administration Labs CBC & Chem 7: 07/28/20 06:00 Assessment and Plan (1) Hx of pulmonary embolus: Problem details: 2018 Status: Acute Assessment and Plan: A 69 years old lady with PMHx of ESTEFANÍA, Hx PE on Eliquis, DM who presented to hospital for elective left knee arthroplasty. DM II POC Hold Metformin SSI ESTEFANÍA CPAP and o2 at bedtime and w naps Hx PE reports being unprovoked On Eliquis (5mg bid) Left knee arthroplasy POD 1 Followed by orthopedics team
--- NOTE | 2020-07-28 15:14 | HO.POSTANES ---
Post Anesthesia Evaluation Post Anesthesia Evaluation Vital Signs: Vital Signs Temp Pulse Resp BP Pulse Ox 07/28/20 13:13 84 128/59 L 99 07/28/20 11:57 97.5 F 84 19 128/59 L 99 07/28/20 08:15 96 129/65 92 07/28/20 08:00 98.1 F 96 17 129/65 92 07/28/20 04:00 98.9 F 73 16 110/54 L 96 Anesthesia: Nerve Block and General Mental Status: Awake Pain Control: Satisfactory Nausea/Vomiting: None Hydration: Adequate Anesthesia-Related Issues: No Anes. Related Issues
[2020-07-28] MEDS: Sodium Chloride 0.45 % 1,000 ML 80 ML IVCONT (15:49)
[2020-07-28 16:28] LABS: Glucose, Whole Blood 94 mg/dL (60-115)
[2020-07-28 20:37] LABS: Glucose, Whole Blood 108 mg/dL (60-115)
[2020-07-28] MEDS: Apixaban 5 MG TABLET PO (21:40)
[2020-07-29] VITALS (8 sets, daily range): BP systolic 99–143; BP diastolic 44–67; PULSE 96–110; RESP 16–19; TEMP 36–37.3; O2SAT 90–95
[2020-07-29] MEDS: HYDROmorphone HCl 0.5 MG/0.5 ML SYRINGE 0.25 MG IVPUSH ×3 (02:33→12:59)
[2020-07-29] MEDS: Sodium Chloride 0.45 % 1,000 ML 80 ML IVCONT ×3 (02:38→23:54)
[2020-07-29 07:26] LABS: MANUAL DIFF FLAG NO
[2020-07-29 07:35] LABS: Basophils Absolute Auto 0.1 X10*3/uL (0.0-0.2); Basophils Percent Auto 0.4 % (0-2); Eosinophils Absolute Auto 0.1 X10*3/uL (0.0-0.4); Eosinophils Percent Auto 1.2 % (0-4); Hematocrit 26.4 % (37-47); Hemoglobin 8.2 g/dl (12.0-16.0); Imm Gran Abs Auto 0.04 X10*3/uL (0.00-0.03); Imm Gran Pct Auto 0.4 % (0.0-0.4); Lymphocytes Absolute Auto 2.6 X10*3/uL (1.2-4.9); Lymphocytes Percent Auto 22.9 % (20-40); Mean Corpuscular HGB Conc 31.1 g/dl (31.0-35.0); Mean Corpuscular Hemoglobin 29.1 pg (27.0-33.0); Mean Corpuscular Volume 93.6 fL (80-98); Mean Platelet Volume 11.5 fL (9.4-12.3); Monocytes Absolute Auto 1.3 X10*3/uL (0.1-1.2); Monocytes Percent Auto 11.3 % (2-11); Neutrophils Absolute Auto 7.2 X10*3/uL (2.0-8.3); Neutrophils Percent Auto 63.8 % (45-73); Platelet Count 148 X10*3/uL (160-400); Red Blood Count 2.82 X10*6/uL (4.20-5.50); Red Cell Distribution Width 13.4 % (11.0-16.0); White Blood Count 11.3 X10*3/uL (4.8-10.8)
[2020-07-29 08:03] LABS: Anion Gap 10 (12-20); Blood Urea Nitrogen 10 mg/dL (9-16); Calcium 8.5 mg/dL (8.4-10.2); Carbon Dioxide 31 mmol/L (22-29); Chloride 103 mmol/L (96-108); Creatinine Clr Calc Pharmacy 87.7; Estimated Glomerular Filt Rate > 60; Glucose Fasting 99 mg/dL (60-99); Potassium 3.5 mmol/L (3.3-5.1); Sodium 140 mmol/L (135-145)
[2020-07-29 08:18] LABS: MANUAL DIFF FLAG NO
[2020-07-29 08:41] LABS: Basophils Percent Auto 0.4 % (0-2); Eosinophils Absolute Auto 0.1 X10*3/uL (0.0-0.4); Eosinophils Percent Auto 1.3 % (0-4); Hematocrit 25.6 % (37-47); Hemoglobin 8.3 g/dl (12.0-16.0); Imm Gran Abs Auto 0.07 X10*3/uL (0.00-0.03); Imm Gran Pct Auto 0.7 % (0.0-0.4); Lymphocytes Absolute Auto 2.3 X10*3/uL (1.2-4.9); Mean Corpuscular HGB Conc 32.4 g/dl (31.0-35.0); Mean Corpuscular Volume 92.4 fL (80-98); Monocytes Absolute Auto 1.2 X10*3/uL (0.1-1.2); Monocytes Percent Auto 11.3 % (2-11); Neutrophils Absolute Auto 6.6 X10*3/uL (2.0-8.3); Neutrophils Percent Auto 64.3 % (45-73); Platelet Count 148 X10*3/uL (160-400); Red Blood Count 2.77 X10*6/uL (4.20-5.50); Red Cell Distribution Width 13.3 % (11.0-16.0); White Blood Count 10.3 X10*3/uL (4.8-10.8)
[2020-07-29 08:51] LABS: Anion Gap 11 (12-20); Blood Urea Nitrogen 10 mg/dL (9-16); Calcium 8.4 mg/dL (8.4-10.2); Carbon Dioxide 30 mmol/L (22-29); Chloride 103 mmol/L (96-108); Creatinine Clr Calc Pharmacy 89.2; Estimated Glomerular Filt Rate > 60; Glucose Random 102 mg/dL (60-115); Potassium 3.8 mmol/L (3.3-5.1); Sodium 140 mmol/L (135-145)
[2020-07-29] MEDS: bisacodyL 5 MG TABLET.DR PO ×2 (08:52→20:28)
[2020-07-29] MEDS: Celecoxib 200 MG CAPSULE PO ×2 (08:52→20:28)
[2020-07-29] MEDS: Apixaban 5 MG TABLET PO ×2 (08:52→20:28)
--- NOTE | 2020-07-29 08:52 | PM.PNORT ---
Subjective Subjective Date of Service: 07/29/20 Interval history: POD2 s/p left TKA with Dr. Merchant. No overnight events. Patient reports getting up to walk to the bathroom. No additional complaints. Physical Exam Vital Signs: Vital Signs: Last Vital Signs Temp 98.9 F 07/29/20 08:00 Pulse 99 07/29/20 08:00 Resp 19 07/29/20 08:00 BP 143/67 H 07/29/20 08:00 Pulse Ox 90 L 07/29/20 08:00 Body Mass Index 40.0 Const: General: cooperative, healthy appearing and no acute distress Resp: Effort & Inspection: normal respiratory effort and able to speak in complete sentences Cardio: Rate: regular rate Peripheral pulses: Peripheral pulses 2+ throughout GI: Palpation (GI): Soft to palpation Skin: Lesions: no lesions Rashes: no rashes Extrem: Other: left knee no ecchymosi, redness, or drainage. Aquacel is clean, dry, and intact. NVI. Progress Note: A&P Assessment and plan (1) Status post total left knee replacement: Status: Acute Assessment and Plan: Continue pain mgmnt Continue Eliquis 2.5mg BID for dvt ppx Continue PT for left TKA Dispo planning-Pending PT eval, pain mgmnt Fall Risk Details Current Medications: Current Medications Generic Name Dose Route Start Last Admin Trade Name Freq PRN Reason Stop Dose Admin Acetaminophen 650 mg 07/27/20 14:40 07/28/20 12:40 Acetaminophen 325 Mg Tablet PO 650 mg Q6H PRN Administration Pain, Mild (Pain Scale 1-3) Al Hydroxide/Mg Hydroxide 30 ml 07/27/20 14:40 Magnesium Hydrox/Alum Hydrox 30 Ml Oral.Susp PO Q4H PRN Heartburn/Nausea Apixaban 5 mg 07/28/20 21:00 07/28/20 21:40 Apixaban 5 Mg Tablet PO 5 mg BID DIO Administration Atorvastatin Calcium 20 mg 07/27/20 15:00 07/27/20 16:12 Atorvastatin Calcium 20 Mg Tablet PO 20 mg Q48H DIO Administration Bisacodyl 5 mg 07/28/20 09:00 07/28/20 21:40 Bisacodyl 5 Mg Tablet.Dr PO 5 mg BID DIO Administration Celecoxib 200 mg 07/27/20 21:00 07/28/20 21:40 Celecoxib 200 Mg Capsule PO 200 mg BID DIO Administration Docusate Sodium 100 mg 07/27/20 14:40 Docusate Sodium 100 Mg Capsule PO DAILY PRN Constipation Ergocalciferol 1,250 mcg 07/28/20 09:00 07/28/20 07:18 Ergocalciferol (Vitamin D2) 1,250 Mcg Capsule PO 1,250 mcg We DIO Administration Hydromorphone HCl 0.25 mg 07/27/20 14:40 07/29/20 02:33 Hydromorphone Hcl 0.5 Mg/0.5 Ml Syringe IVPUSH 0.25 mg Q4H PRN Administration Pain, Severe (Pain Scale 7-10) Sodium Chloride 1,000 mls @ 80 mls/hr 07/27/20 14:40 07/29/20 02:38 IVCONT 80 mls/hr .[id number] DIO Administration Naloxone HCl 0.2 mg 07/27/20 14:40 Naloxone Hcl 0.4 Mg/Ml Vial IVPUSH Q2M PRN Excessive sedation or RR < 8 Ondansetron HCl 4 mg 07/27/20 14:40 Ondansetron Hcl 4 Mg/2 Ml Vial IVPUSH Q8H PRN Nausea and Vomiting Oxycodone HCl 10 mg 07/28/20 07:43 07/28/20 12:40 Oxycodone Hcl Immed Release 5 Mg Tablet PO 10 mg Q4H PRN Administration Pain, Moderate (Pain Scale 4-6 Sodium Chloride 3 ml 07/27/20 16:00 07/28/20 21:40 0.9 % Sodium Chloride Flush 3 Ml Syringe IVFLUSH Not Given QSHIFT [facility] Time Spent With Patient Time: Total time spent is greater than 50% in coordination of care (as documented) at patient's floor/unit and/or counseling patient: Time with patient: less than 15 minutes
[2020-07-29 09:01] LABS: Glucose, Whole Blood 105 mg/dL (60-115)
[2020-07-29] MEDS: oxyCODONE HCl Immed Release 5 MG TABLET 10 MG PO ×3 (09:56→23:10)
[2020-07-29] MEDS: polyethylene glycoL 3350 17 GM POWD.PACK PO (09:57)
--- NOTE | 2020-07-29 11:23 | P.PNIM_ITS ---
Subjective Subjective Date of Service: 07/29/20 Interval History: knee pain, complaining of constipation Cardiovascular Cardiovascular: Reports no additional cardiovascular complaints Respiratory Respiratory: Reports no additional respiratory complaints Physical Exam Vital Signs: Vital Signs: Last Vital Signs Temp 98.9 F 07/29/20 08:00 Pulse 99 07/29/20 09:46 Resp 19 07/29/20 08:00 BP 143/67 H 07/29/20 09:46 Pulse Ox 90 L 07/29/20 09:46 Body Mass Index 40.0 Const General: cooperative, healthy appearing and no acute distress Resp Effort & Inspection: normal respiratory effort and able to speak in complete sentences Cardio Rate: regular rate Peripheral pulses: Peripheral pulses 2+ throughout GI Palpation (GI): Soft to palpation Skin Lesions: no lesions Rashes: no rashes Extrem Other: left knee no ecchymosi, redness, or drainage. Aquacel is clean, dry, and intact. NVI. Objective Data Current Medications Generic Name Dose Route Start Last Admin Trade Name Freq PRN Reason Stop Dose Admin Acetaminophen 650 mg 07/27/20 14:40 07/28/20 12:40 Acetaminophen 325 Mg Tablet PO 650 mg Q6H PRN Administration Pain, Mild (Pain Scale 1-3) Al Hydroxide/Mg Hydroxide 30 ml 07/27/20 14:40 Magnesium Hydrox/Alum Hydrox 30 Ml Oral.Susp PO Q4H PRN Heartburn/Nausea Apixaban 5 mg 07/28/20 21:00 07/29/20 08:52 Apixaban 5 Mg Tablet PO 5 mg BID DIO Administration Atorvastatin Calcium 20 mg 07/27/20 15:00 07/27/20 16:12 Atorvastatin Calcium 20 Mg Tablet PO 20 mg Q48H DIO Administration Bisacodyl 5 mg 07/28/20 09:00 07/29/20 08:52 Bisacodyl 5 Mg Tablet.Dr PO 5 mg BID DIO Administration Celecoxib 200 mg 07/27/20 21:00 07/29/20 08:52 Celecoxib 200 Mg Capsule PO 200 mg BID DIO Administration Docusate Sodium 100 mg 07/27/20 14:40 Docusate Sodium 100 Mg Capsule PO DAILY PRN Constipation Ergocalciferol 1,250 mcg 07/28/20 09:00 07/28/20 07:18 Ergocalciferol (Vitamin D2) 1,250 Mcg Capsule PO 1,250 mcg We DIO Administration Hydromorphone HCl 0.25 mg 07/27/20 14:40 07/29/20 08:59 Hydromorphone Hcl 0.5 Mg/0.5 Ml Syringe IVPUSH 0.25 mg Q4H PRN Administration Pain, Severe (Pain Scale 7-10) Sodium Chloride 1,000 mls @ 80 mls/hr 07/27/20 14:40 07/29/20 02:38 IVCONT 80 mls/hr .[id number] DIO Administration Naloxone HCl 0.2 mg 07/27/20 14:40 Naloxone Hcl 0.4 Mg/Ml Vial IVPUSH Q2M PRN Excessive sedation or RR < 8 Ondansetron HCl 4 mg 07/27/20 14:40 Ondansetron Hcl 4 Mg/2 Ml Vial IVPUSH Q8H PRN Nausea and Vomiting Oxycodone HCl 10 mg 07/28/20 07:43 07/29/20 09:56 Oxycodone Hcl Immed Release 5 Mg Tablet PO 10 mg Q4H PRN Administration Pain, Moderate (Pain Scale 4-6 Sodium Chloride 3 ml 07/27/20 16:00 07/29/20 09:02 0.9 % Sodium Chloride Flush 3 Ml Syringe IVFLUSH Not Given QSHIFT [facility] Labs CBC & Chem 7: 07/29/20 07:49 07/29/20 07:49 Assessment and Plan (1) Hx of pulmonary embolus: Problem details: 2018 Status: Acute Assessment and Plan: A 69 years old lady with PMHx of ESTEFANÍA, Hx PE on Eliquis, DM who presented to hospital for elective left knee arthroplasty. constipation mirlax DM II POC Hold Metformin SSI ESTEFANÍA CPAP and o2 at bedtime and w naps Hx PE reports being unprovoked On Eliquis (5mg bid) Left knee arthroplasy POD 2 Followed by orthopedics team
[2020-07-29 11:59] LABS: Glucose, Whole Blood 145 mg/dL (60-115)
--- NOTE | 2020-07-29 13:09 | MHC.CM.PN ---
CM RECEIVED MESSAGE REGARDING PT'S CURRENT [facility] COMFORT NOT RELEASING HER TO [facility] WHICH PT HAS BEEN REQUESTING SINCE BEFORE HER PROCEDURE, ISSUE HAS BEEN RESOLVED AND PT WILL D/C HOME W/[facility] FOR SN/HOME PT W/FAMILY FOR TRANSPORT.
[2020-07-29] MEDS: Atorvastatin Calcium 20 MG TABLET PO (14:25)
[2020-07-29 16:32] LABS: Glucose, Whole Blood 119 mg/dL (60-115)
[2020-07-29 20:27] LABS: Glucose, Whole Blood 123 mg/dL (60-115)
[2020-07-29] MEDS: Acetaminophen 325 MG TABLET 650 MG PO (23:09)
[2020-07-30] VITALS (12 sets, daily range): BP systolic 91–122; BP diastolic 48–60; PULSE 68–97; RESP 12–18; TEMP 35.9–36.9; O2SAT 93–98
[2020-07-30] MEDS: diphenhydrAMINE HCL 25 MG TABLET PO (03:03)
--- NOTE | 2020-07-30 03:44 | MHC.PIE ---
p; pt c/o itchiness. i; dr max notified; new order Benadryl 25 mg po now e; will cont to monitor
[2020-07-30 06:28] LABS: MANUAL DIFF FLAG NO
[2020-07-30 06:42] LABS: Basophils Absolute Auto 0.1 X10*3/uL (0.0-0.2); Basophils Percent Auto 0.7 % (0-2); Eosinophils Absolute Auto 0.4 X10*3/uL (0.0-0.4); Eosinophils Percent Auto 3.9 % (0-4); Hemoglobin 7.1 g/dl (12.0-16.0); Imm Gran Abs Auto 0.03 X10*3/uL (0.00-0.03); Imm Gran Pct Auto 0.3 % (0.0-0.4); Lymphocytes Absolute Auto 3.3 X10*3/uL (1.2-4.9); Lymphocytes Percent Auto 36.3 % (20-40); Mean Corpuscular HGB Conc 32.3 g/dl (31.0-35.0); Mean Corpuscular Hemoglobin 30.1 pg (27.0-33.0); Mean Corpuscular Volume 93.2 fL (80-98); Mean Platelet Volume 11.4 fL (9.4-12.3); Monocytes Percent Auto 11.1 % (2-11); Neutrophils Absolute Auto 4.4 X10*3/uL (2.0-8.3); Neutrophils Percent Auto 47.7 % (45-73); Platelet Count 136 X10*3/uL (160-400); Red Blood Count 2.36 X10*6/uL (4.20-5.50); Red Cell Distribution Width 13.3 % (11.0-16.0); White Blood Count 9.2 X10*3/uL (4.8-10.8)
[2020-07-30 07:12] LABS: Anion Gap 12 (12-20); Blood Urea Nitrogen 13 mg/dL (9-16); Calcium 8.3 mg/dL (8.4-10.2); Carbon Dioxide 28 mmol/L (22-29); Chloride 105 mmol/L (96-108); Creatinine Clr Calc Pharmacy 81.5; Estimated Glomerular Filt Rate > 60; Glucose Random 98 mg/dL (60-115); Sodium 141 mmol/L (135-145)
[2020-07-30] MEDS: oxyCODONE HCl Immed Release 5 MG TABLET 10 MG PO ×3 (07:21→21:32)
[2020-07-30] MEDS: Acetaminophen 325 MG TABLET 650 MG PO ×3 (07:22→21:32)
--- NOTE | 2020-07-30 07:43 | P.PNOP_ITS ---
Subjective Subjective Date of Service: 07/30/20 Interval history: POD3 s/p lt TKA with Dr. Merchant. Patient states that her pain is well managed. No overnight events. Denies SOB, chest pain, dizziness. Physical Exam Vital Signs: Vital Signs: Last Vital Signs Temp 98.4 F 07/30/20 07:23 Pulse 84 07/30/20 07:23 Resp 18 07/30/20 07:23 BP 111/54 L 07/30/20 07:23 Pulse Ox 97 07/30/20 07:23 Body Mass Index 40.0 Const: General: cooperative, healthy appearing and no acute distress Resp: Effort & Inspection: normal respiratory effort and able to speak in complete sentences Cardio: Rate: regular rate Peripheral pulses: Peripheral pulses 2+ t hroughout GI: Palpation (GI): Soft to palpation Skin: Lesions: no lesions Rashes: no rashes Extrem: Other: left knee no ecchymosis, redness, or drainage. Aquacel dressing is clean, dry, and intact. NVI Progress Note: A&P Assessment and plan (1) Status post total left knee replacement: Status: Acute Assessment and Plan: Due to 7 05/07 patient will receive 2 units packed red blood cells today Continue pain mgmnt Continue Eliquis for dvt ppx Continue PT for left total knee arthroplasty Dispo planning-Pending PT eval, pain mgmnt Fall Risk Details Current Medications: Current Medications Generic Name Dose Route Start Last Admin Trade Name Freq PRN Reason Stop Dose Admin Acetaminophen 650 mg 07/27/20 14:40 07/30/20 07:22 Acetaminophen 325 Mg Tablet PO 650 mg Q6H PRN Administration Pain, Mild (Pain Scale 1-3) Al Hydroxide/Mg Hydroxide 30 ml 07/27/20 14:40 Magnesium Hydrox/Alum Hydrox 30 Ml Oral.Susp PO Q4H PRN Heartburn/Nausea Apixaban 5 mg 07/28/20 21:00 07/29/20 20:28 Apixaban 5 Mg Tablet PO 5 mg BID DIO Administration Atorvastatin Calcium 20 mg 07/27/20 15:00 07/29/20 14:25 Atorvastatin Calcium 20 Mg Tablet PO 20 mg Q48H DIO Administration Bisacodyl 5 mg 07/28/20 09:00 07/29/20 20:28 Bisacodyl 5 Mg Tablet. PO 5 mg BID DIO Administration Celecoxib 200 mg 07/27/20 21:00 07/29/20 20:28 Celecoxib 200 Mg Capsule PO 200 mg BID DIO Administration Docusate Sodium 100 mg 07/27/20 14:40 Docusate Sodium 100 Mg Capsule PO DAILY PRN Constipation Ergocalciferol 1,250 mcg 07/28/20 09:00 07/28/20 07:18 Ergocalciferol (Vitamin D2) 1,250 Mcg Capsule PO 1,250 mcg We DIO Administration Hydromorphone HCl 0.25 mg 07/27/20 14:40 07/29/20 12:59 Hydromorphone Hcl 0.5 Mg/0.5 Ml Syringe IVPUSH 0.25 mg Q4H PRN Administration Pain, Severe (Pain Scale 7-10) Sodium Chloride 1,000 mls @ 80 mls/hr 07/27/20 14:40 07/29/20 23:54 IVCONT 80 mls/hr .[id number] DIO Administration Naloxone HCl 0.2 mg 07/27/20 14:40 Naloxone Hcl 0.4 Mg/Ml Vial IVPUSH Q2M PRN Excessive sedation or RR < 8 Ondansetron HCl 4 mg 07/27/20 14:40 Ondansetron Hcl 4 Mg/2 Ml Vial IVPUSH Q8H PRN Nausea and Vomiting Oxycodone HCl 10 mg 07/28/20 07:43 07/30/20 07:21 Oxycodone Hcl Immed Release 5 Mg Tablet PO 10 mg Q4H PRN Administration Pain, Moderate (Pain Scale 4-6 Sodium Chloride 3 ml 07/27/20 16:00 07/30/20 07:23 0.9 % Sodium Chloride Flush 3 Ml Syringe IVFLUSH Not Given QSHIFT [facility] Time Spent With Patient Time: Total time spent is greater than 50% in coordination of care (as documented) at patient's floor/unit and/or counseling patient: Time with patient: less than 15 minutes
[2020-07-30 07:59] LABS: Glucose, Whole Blood 91 mg/dL (60-115)
[2020-07-30] MEDS: Apixaban 5 MG TABLET PO ×2 (08:33→20:38)
[2020-07-30] MEDS: Celecoxib 200 MG CAPSULE PO ×2 (08:33→20:38)
[2020-07-30] MEDS: bisacodyL 5 MG TABLET.DR PO ×2 (08:34→20:38)
--- NOTE | 2020-07-30 09:32 | P.PNIM_ITS ---
Subjective Subjective Date of Service: 07/30/20 Interval History: pain improved Cardiovascular Cardiovascular: Reports no additional cardiovascular complaints Gastrointestinal Gastrointestinal: Reports no additional gastrointestinal complaints Physical Exam Vital Signs: Vital Signs: Last Vital Signs Temp 98.4 F 07/30/20 07:23 Pulse 84 07/30/20 07:23 Resp 18 07/30/20 07:23 BP 111/54 L 07/30/20 07:23 Pulse Ox 97 07/30/20 07:23 Body Mass Index 40.0 Const General: cooperative, healthy appearing and no acute distress Resp Effort & Inspection: normal respiratory effort and able to speak in complete sentences Cardio Rate: regular rate Peripheral pulses: Peripheral pulses 2+ throughout GI Palpation (GI): Soft to palpation Skin Lesions: no lesions Rashes: no rashes Extrem Other: left knee no ecchymosis, redness, or drainage. Aquacel dressing is clean, dry, and intact. NVI Objective Data Current Medications Generic Name Dose Route Start Last Admin Trade Name Freq PRN Reason Stop Dose Admin Acetaminophen 650 mg 07/27/20 14:40 07/30/20 07:22 Acetaminophen 325 Mg Tablet PO 650 mg Q6H PRN Administration Pain, Mild (Pain Scale 1-3) Al Hydroxide/Mg Hydroxide 30 ml 07/27/20 14:40 Magnesium Hydrox/Alum Hydrox 30 Ml Oral.Susp PO Q4H PRN Heartburn/Nausea Apixaban 5 mg 07/28/20 21:00 07/30/20 08:33 Apixaban 5 Mg Tablet PO 5 mg BID DIO Administration Atorvastatin Calcium 20 mg 07/27/20 15:00 07/29/20 14:25 Atorvastatin Calcium 20 Mg Tablet PO 20 mg Q48H DIO Administration Bisacodyl 5 mg 07/28/20 09:00 07/30/20 08:34 Bisacodyl 5 Mg Tablet.Dr PO 5 mg BID DIO Administration Celecoxib 200 mg 07/27/20 21:00 07/30/20 08:33 Celecoxib 200 Mg Capsule PO 200 mg BID DIO Administration Docusate Sodium 100 mg 07/27/20 14:40 Docusate Sodium 100 Mg Capsule PO DAILY PRN Constipation Ergocalciferol 1,250 mcg 07/28/20 09:00 07/28/20 07:18 Ergocalciferol (Vitamin D2) 1,250 Mcg Capsule PO 1,250 mcg We DIO Administration Hydromorphone HCl 0.25 mg 07/27/20 14:40 07/29/20 12:59 Hydromorphone Hcl 0.5 Mg/0.5 Ml Syringe IVPUSH 0.25 mg Q4H PRN Administration Pain, Severe (Pain Scale 7-10) Sodium Chloride 1,000 mls @ 80 mls/hr 07/27/20 14:40 07/29/20 23:54 IVCONT 80 mls/hr .[id number] IDO Administration Naloxone HCl 0.2 mg 07/27/20 14:40 Naloxone Hcl 0.4 Mg/Ml Vial IVPUSH Q2M PRN Excessive sedation or RR < 8 Ondansetron HCl 4 mg 07/27/20 14:40 Ondansetron Hcl 4 Mg/2 Ml Vial IVPUSH Q8H PRN Nausea and Vomiting Oxycodone HCl 10 mg 07/28/20 07:43 07/30/20 07:21 Oxycodone Hcl Immed Release 5 Mg Tablet PO 10 mg Q4H PRN Administration Pain, Moderate (Pain Scale 4-6 Sodium Chloride 3 ml 07/27/20 16:00 07/30/20 07:23 0.9 % Sodium Chloride Flush 3 Ml Syringe IVFLUSH Not Given QSHIFT [facility] Labs CBC & Chem 7: 07/30/20 06:08 07/30/20 06:08 Assessment and Plan (1) Hx of pulmonary embolus: Problem details: 2018 Status: Acute Assessment and Plan: A 69 years old lady with PMHx of ESTEFANÍA, Hx PE on Eliquis, DM who presented to hospital for elective left knee arthroplasty. anemia plan for transfusion DM II POC Hold Metformin SSI ESTEFANÍA CPAP and o2 at bedtime and w naps Hx PE reports being unprovoked On Eliquis (5mg bid) Left knee arthroplasy POD 3 Followed by orthopedics team
--- NOTE | 2020-07-30 11:37 | MHC.CM.PN ---
ELECTRONIC MEDICAL RECORD REVIEWED ALONG WITH CASE DISCUSSED WITH STAFF NURSE AND PHYSICAL THERAPIST ., MET WITH PATIENT SHE WILL BE RECEIVING 2 UNITS OF PACKED RED BLOOD CELLS TODAY , ANTICIPATE DISCHARGE TOMORROW ONCE CLEARED AFTER PHYSICAL THERAPY HAS PATIENT GO UP DOWN THE STAIRS, DISCHARGE PLAN HOME WITH NEW REFERRAL FOR HOME PHYSICAL THEARPY . PATIENT REQUESTED ADRIENNE GALE (updated adrienne)) SHE WILL RESUME HER ELIQUIS BEFORE DISCHARGE PCP DR MARANDA MAN TRANSPORTATION -HER SON [facility] UPDATED ON
[2020-07-30 11:47] LABS: Glucose, Whole Blood 91 mg/dL (60-115)
[2020-07-30 16:58] LABS: Glucose, Whole Blood 82 mg/dL (60-115)
[2020-07-30 20:31] LABS: Glucose, Whole Blood 92 mg/dL (60-115)
[2020-07-30] MEDS: 0.9 % Sodium Chloride Flush 3 ML SYRINGE IVFLUSH (20:38)
[2020-07-31] MEDS: diphenhydrAMINE HCL 25 MG TABLET PO (00:23)
[2020-07-31] MEDS: oxyCODONE HCl Immed Release 5 MG TABLET 10 MG PO ×2 (01:59→06:25)
[2020-07-31 04:00] VITALS: BP 122/61; PULSE 69; RESP 16; TEMP 36.6; O2SAT 95
[2020-07-31 07:01] LABS: MANUAL DIFF FLAG NO
[2020-07-31 07:13] LABS: Basophils Percent Auto 0.6 % (0-2); Eosinophils Absolute Auto 0.3 X10*3/uL (0.0-0.4); Eosinophils Percent Auto 4.8 % (0-4); Hematocrit 26.7 % (37-47); Hemoglobin 8.6 g/dl (12.0-16.0); Imm Gran Abs Auto 0.02 X10*3/uL (0.00-0.03); Imm Gran Pct Auto 0.3 % (0.0-0.4); Lymphocytes Absolute Auto 2.1 X10*3/uL (1.2-4.9); Lymphocytes Percent Auto 30.7 % (20-40); Mean Corpuscular HGB Conc 32.2 g/dl (31.0-35.0); Mean Corpuscular Hemoglobin 29.6 pg (27.0-33.0); Mean Corpuscular Volume 91.8 fL (80-98); Mean Platelet Volume 11.4 fL (9.4-12.3); Monocytes Absolute Auto 0.7 X10*3/uL (0.1-1.2); Monocytes Percent Auto 9.8 % (2-11); Neutrophils Absolute Auto 3.7 X10*3/uL (2.0-8.3); Neutrophils Percent Auto 53.8 % (45-73); Platelet Count 154 X10*3/uL (160-400); Red Blood Count 2.91 X10*6/uL (4.20-5.50); Red Cell Distribution Width 14.3 % (11.0-16.0); White Blood Count 6.9 X10*3/uL (4.8-10.8)
[2020-07-31 07:27] VITALS: BP 102/55; PULSE 80; RESP 18; TEMP 36.7; O2SAT 90
[2020-07-31 07:34] LABS: Anion Gap 12 (12-20); Blood Urea Nitrogen 13 mg/dL (9-16); Calcium 8.4 mg/dL (8.4-10.2); Carbon Dioxide 29 mmol/L (22-29); Chloride 105 mmol/L (96-108); Creatinine Clr Calc Pharmacy 87.7; Estimated Glomerular Filt Rate > 60; Glucose Fasting 83 mg/dL (60-99); Potassium 3.6 mmol/L (3.3-5.1); Sodium 142 mmol/L (135-145)
[2020-07-31 07:53] VITALS: BP 102/55; PULSE 80; O2SAT 90
[2020-07-31] MEDS: bisacodyL 5 MG TABLET.DR PO (08:01)
[2020-07-31] MEDS: 0.9 % Sodium Chloride Flush 3 ML SYRINGE IVFLUSH (08:01)
[2020-07-31] MEDS: Celecoxib 200 MG CAPSULE PO (08:01)
[2020-07-31] MEDS: Apixaban 5 MG TABLET PO (08:01)
[2020-07-31 08:07] VITALS: O2SAT 95
[2020-07-31 08:07] LABS: Glucose, Whole Blood 79 mg/dL (60-115)
--- NOTE | 2020-07-31 09:36 | HO.PM.IMPN ---
Subjective Subjective Date of Service: 07/31/20 Interval History: feeling better today, knee pain improivng Cardiovascular Cardiovascular: Reports no additional cardiovascular complaints Respiratory Respiratory: Reports no additional respiratory complaints Physical Exam Vital Signs: Vital Signs: Last Vital Signs Temp 98.0 F 07/31/20 07:27 Pulse 80 07/31/20 07:53 Resp 18 07/31/20 07:27 BP 102/55 L 07/31/20 07:53 Pulse Ox 95 07/31/20 08:07 Body Mass Index 40.0 Const General: cooperative, healthy appearing and no acute distress Resp Effort & Inspection: normal respiratory effort and able to speak in complete sentences Cardio Rate: regular rate Peripheral pulses: Peripheral pulses 2+ throughout GI Palpation (GI): Soft to palpation Skin Lesions: no lesions Rashes: no rashes Extrem Other: left knee no ecchymosis, redness, or drainage. Aquacel dressing is clean, dry, and intact. NVI Objective Data Current Medications Generic Name Dose Route Start Last Admin Trade Name Freq PRN Reason Stop Dose Admin Acetaminophen 650 mg 07/27/20 14:40 07/30/20 21:32 Acetaminophen 325 Mg Tablet PO 650 mg Q6H PRN Administration Pain, Mild (Pain Scale 1-3) Al Hydroxide/Mg Hydroxide 30 ml 07/27/20 14:40 Magnesium Hydrox/Alum Hydrox 30 Ml Oral.Susp PO Q4H PRN Heartburn/Nausea Apixaban 5 mg 07/28/20 21:00 07/31/20 08:01 Apixaban 5 Mg Tablet PO 5 mg BID DIO Administration Atorvastatin Calcium 20 mg 07/27/20 15:00 07/29/20 14:25 Atorvastatin Calcium 20 Mg Tablet PO 20 mg Q48H DIO Administration Bisacodyl 5 mg 07/28/20 09:00 07/31/20 08:01 Bisacodyl 5 Mg Tablet.Dr PO 5 mg BID DIO Administration Celecoxib 200 mg 07/27/20 21:00 07/31/20 08:01 Celecoxib 200 Mg Capsule PO 200 mg BID DIO Administration Docusate Sodium 100 mg 07/27/20 14:40 Docusate Sodium 100 Mg Capsule PO DAILY PRN Constipation Ergocalciferol 1,250 mcg 07/28/20 09:00 07/28/20 07:18 Ergocalciferol (Vitamin D2) 1,250 Mcg Capsule PO 1,250 mcg We DIO Administration Hydromorphone HCl 0.25 mg 07/27/20 14:40 07/29/20 12:59 Hydromorphone Hcl 0.5 Mg/0.5 Ml Syringe IVPUSH 0.25 mg Q4H PRN Administration Pain, Severe (Pain Scale 7-10) Naloxone HCl 0.2 mg 07/27/20 14:40 Naloxone Hcl 0.4 Mg/Ml Vial IVPUSH Q2M PRN Excessive sedation or RR < 8 Ondansetron HCl 4 mg 07/27/20 14:40 Ondansetron Hcl 4 Mg/2 Ml Vial IVPUSH Q8H PRN Nausea and Vomiting Oxycodone HCl 10 mg 07/28/20 07:43 07/31/20 06:25 Oxycodone Hcl Immed Release 5 Mg Tablet PO 10 mg Q4H PRN Administration Pain, Moderate (Pain Scale 4-6 Sodium Chloride 3 ml 07/27/20 16:00 07/31/20 08:01 0.9 % Sodium Chloride Flush 3 Ml Syringe IVFLUSH 3 ml QSHIFT DIO Administration Labs CBC & Chem 7: 07/31/20 06:29 07/31/20 06:29 Assessment and Plan (1) Hx of pulmonary embolus: Problem details: 2018 Status: Acute Assessment and Plan: A 69 years old lady with PMHx of ESTEFANÍA, Hx PE on Eliquis, DM who presented to hospital for elective left knee arthroplasty. anemia s/p 2 units prbc on 07/30 hgb improved appropriately from 7.1 to 8.6 DM II POC Holding Metformin while inpatient SSI ESTEFANÍA CPAP and o2 at bedtime and w naps Hx PE reports being unprovoked On Eliquis (5mg bid) Left knee arthroplasy POD 4 Followed by orthopedics team
--- NOTE | 2020-07-31 13:08 | MHC.CM.PN ---
DC home with Terrell MONTES DE [facility] today. Inforemed Terrell of patient's discharge
--- NOTE | 2020-07-31 13:09 | P.DS_ITS ---
DS: Providers Provider Date of Service: 07/31/20 Date of admission: 07/27/20 05:57 Primary care physician: Muriel Mayers MD Consults: 07/27/20 14:40 Consult to Hospitalist Routine Consulting Provider: Hospitalist Reason For Exam: post op TKA. DS: Diagnosis Discharge Diagnosis (1) Status post total left knee replacement: Status: Acute Problem details: Ms. Chen is a 69 yo female who was seen in our office for eval / tx of left knee pain. She was found to have OA. She had failed all conservative measures and continued to have difficulty with daily activities; therefore, she consented to move forward with LT total knee arthroplasty. DS: Medications Discharge Medications Home Medications: Home Medications Medication Instructions Recorded Confirmed apixaban 5 mg tablet 5 mg PO BID 01/14/20 07/23/20 gabapentin 600 mg tablet 600 mg PO TID 01/14/20 07/27/20 metformin 500 mg PO BIDWM 01/14/20 07/27/20 Linzess 1 cap PO DAILY 07/23/20 07/23/20 bisacodyl 1 tab PO BID 07/23/20 07/23/20 docusate sodium [DOK] 1 cap PO BID 07/23/20 07/23/20 ergocalciferol (vitamin D2) 1 cap PO QWEEK 07/23/20 07/23/20 furosemide 1 tab PO QAM 07/23/20 07/23/20 atorvastatin 1 tab PO Q OTHER DAY 07/27/20 07/27/20 Previous Rx's Medication Instructions Recorded acetaminophen 650 mg PO Q6H PRN 30 Days #240 tab 07/31/20 celecoxib 200 mg PO BID 30 Days #60 cap 07/31/20 oxycodone 10 mg PO Q4H PRN 7 Days #42 tab 07/31/20 DS: Summary Hospital Course Hospital Course: The patient underwent a successful Left Total knee arthroplasty, was transferred to PACU and then to the floor to recover. During their stay, their vitals were stable, afebrile at 98.0. Labs were unremarkable on discharge H/H 8.6/26.7. POD 3 her h/h dropped to 7.1/22 , so she was transfused with 2 Units of PRBCs. POD 1 was started on Eliquis 2.5 mg qd for DVT ppx, resumed 2.5 bid 4/15/21. She also received PT services twice a day. Prior to discharge, their dressing was change, incision clean dry and intact, new Aquacel dressing applied and the plan was to be discharged home with VNA services,. Time Spent with Patient Time attestation: Total time spent providing and/or coordinating discharge services: Discharge coordination time: Less than 30 minutes Physical Exam Vital Signs: Vital Signs: Last Vital Signs Temp 98.0 F 07/31/20 07:27 Pulse 80 07/31/20 07:53 Resp 18 07/31/20 07:27 BP 102/55 L 07/31/20 07:53 Pulse Ox 95 07/31/20 08:07 Body Mass Index 40.0 Const: General: cooperative, healthy appearing and no acute distress Resp: Effort & Inspection: normal respiratory effort and able to speak in complete sentences Cardio: Rate: regular rate Peripheral pulses: Peripheral pulses 2+ throughout GI: Palpation (GI): Soft to palpation Skin: General skin exam: no rashes or lesions noted Extrem: Other: Left knee incision clean dry and intact. No erythema, mild edema, calf supple non tender. NVI. DS: Data Data Completed and Pending Completed studies during hospitalization [Text1]: Pending at discharge 07/27/20 09:49 Surgical [PTH] Routine Procedures Inspection of Upper Intestinal Tract, Via Natural or Artificial Opening Endoscopic (01/14/20) Replacement of Right Knee Joint with Synthetic Substitute, Uncemented, Open Approach (01/14/20) Transfusion of Nonautologous Red Blood Cells into Peripheral Vein, Percutaneous Approach (01/14/20) Labs on day of discharge: Laboratory Results - last 24 hr 07/30/20 07/30/20 07/30/20 08:11 16:50 20:15 WBC RBC Hgb Hct MCV MCH MCHC RDW Plt Count MPV Immature Gran % (Auto) Neut % (Auto) Lymph % (Auto) Mclean % (Auto) Eos % (Auto) Baso % (Auto) Lymph # (Auto) Mclean # (Auto) Eos # (Auto) Baso # (Auto) Abs Immat Gran (auto) Absolute Neuts (auto) Absolute Nucleated RBC Nucleated RBC % (auto) Sodium Potassium Chloride Carbon Dioxide Anion Gap BUN Creatinine Estim Creat Clear Calc Estimated GFR POC Glucose 82 92 Random Glucose Fasting Glucose Calcium Blood Type O Positive Antibody Screen NEGATIVE Crossmatch See Detail 07/31/20 07/31/20 07/31/20 06:29 06:29 07:26 WBC 6.9 RBC 2.91 L D Hgb 8.6 L D Hct 26.7 L D MCV 91.8 MCH 29.6 MCHC 32.2 RDW 14.3 Plt Count 154 L MPV 11.4 Immature Gran % (Auto) 0.3 Neut % (Auto) 53.8 Lymph % (Auto) 30.7 Mclean % (Auto) 9.8 Eos % (Auto) 4.8 H Baso % (Auto) 0.6 Lymph # (Auto) 2.1 Mclean # (Auto) 0.7 Eos # (Auto) 0.3 Baso # (Auto) 0.0 Abs Immat Gran (auto) 0.02 Absolute Neuts (auto) 3.7 Absolute Nucleated RBC 0.000 Nucleated RBC % (auto) 0.0 Sodium 142 Potassium 3.6 Chloride 105 Carbon Dioxide 29 Anion Gap 12 BUN 13 Creatinine 0.65 Estim Creat Clear Calc 87.7 Estimated GFR > 60 POC Glucose 79 Random Glucose TNP Fasting Glucose 83 Calcium 8.4 Blood Type Antibody Screen Crossmatch Discharge Plan Discharge Patient Disposition: Home Health Service Discharge Diagnosis: s/p lt tka Referrals: Terrell Bowles [Outside] - 1 Week () Regina Hannah PA-C [Physician Senior Billing Consultant] - 1 Week (08/12/20 12:30 [facility] Regina Hannah PA-C) Discharge Medications: New celecoxib 200 mg Capsule 200 mg PO BID 30 Days Qty: 60 RF: 0 acetaminophen 325 mg Tablet 650 mg PO Q6H PRN (Reason: Pain, Mild (Pain Scale 1-3)) 30 Days Qty: 240 RF: 0 oxycodone 10 mg tablet 10 mg PO Q4H PRN (Reason: Pain, Moderate (Pain Scale 4-6) 7 Days Qty: 42 RF: 0 Continued metformin 1,000 mg Tablet 500 mg PO BIDWM RF: 0 furosemide 40 mg tablet 1 tab PO QAM RF: 0 docusate sodium [DOK] 100 mg capsule 1 cap PO BID RF: 0 bisacodyl 5 mg tablet,delayed release (DR/EC) 1 tab PO BID RF: 0 ergocalciferol (vitamin D2) 1,250 mcg (50,000 unit) capsule 1 cap PO QWEEK RF: 0 Linzess 290 mcg capsule 1 cap PO DAILY RF: 0 atorvastatin 20 mg tablet 1 tab PO Q OTHER DAY RF: 0 Discontinued acetaminophen 325 mg tablet 650 mg PO Q6H PRN (Reason: pain) 30 Days RF: 0 Discharge Orders: Discharge Order (Routine); Ordered 07/31/20 Ordered By: Regina Hannah Diet: regular diet Activity on Discharge: Use cane or walker Stand Alone Forms: Patient Portal Discharge page Care Plan Goals: restore function left tka Health Concerns: none Plan of Treatment: Physical Therapy Pain management DVT prophylaxis Assessment: * Physical Therapy for ROM 0-120, quad strength, gait training . Use walker for ambulation * Limit stair climbing, No shower, No tub bath, No driving * Continue anticoagulant * Keep Aquacel dressing clean, dry and intact. * Follow up with orthopedics in 2 weeks Discharge Date/Time: 07/31/20 10:44
== END 2020-07-31 10:44 | disposition home health service (06) | DRG 470 ==
LOC: HO.SSSA 05:58 → HO.S3 12:53
PROVIDERS: Internal Medicine; Physician Assistant; Admitting Provider Orthopaedic Surgery; PCP Internal Medicine; Visit Provider Orthopaedic Surgery
PROC: 0SRD0JA Replacement of Left Knee Joint with Synthetic Substitute, Uncemented, Open Approach (ICD-10-PCS; CPT 27447; principal; 2020-07-27 07:30)
DX: M17.12 Unilateral primary osteoarthritis, left knee (principal); E11.9 Type 2 diabetes mellitus without complications; K59.00 Constipation, unspecified; D64.9 Anemia, unspecified; G47.33 Obstructive sleep apnea (adult) (pediatric); Z99.89 Dependence on other enabling machines and devices; Z86.711 Personal history of pulmonary embolism; Z98.84 Bariatric surgery status; Z20.822 Contact with and (suspected) exposure to COVID-19; Z88.5 Allergy status to narcotic agent; Z79.1 Long term (current) use of non-steroidal anti-inflammatories (NSAID); Z79.84 Long term (current) use of oral hypoglycemic drugs; Z79.01 Long term (current) use of anticoagulants; Z79.899 Other long term (current) drug therapy
CPT/HCPCS: 27447; 36430; 36415; 73560; 80048; 82947; 85014; 85018; 85025; 86850; 86900; 86923; 87635; 87640; 87641; 88305; 88311; 97110; 97116; 97162; C1776; J0131; J0690; J1100; J1170; J2250; J3010; P9016; Q0163

== ENCOUNTER → 2020-08-10 13:13 | Outpatient (BNVA) | payer MEDICARE, OTHER, SELFPAY | PROVIDERS: PCP Internal Medicine; Visit Provider Physician Assistant | DX: Z96.652 Presence of left artificial knee joint (principal) | CPT/HCPCS: 99212 ==

== ENCOUNTER → 2020-09-09 15:28 | Outpatient (BNVA) | payer MEDICARE, OTHER, SELFPAY | PROVIDERS: PCP Internal Medicine; Visit Provider Orthopaedic Surgery | DX: Z96.652 Presence of left artificial knee joint (principal); G47.33 Obstructive sleep apnea (adult) (pediatric); E11.9 Type 2 diabetes mellitus without complications; Z88.5 Allergy status to narcotic agent; Z88.8 Allergy status to other drugs, medicaments and biological substances; Z99.89 Dependence on other enabling machines and devices | CPT/HCPCS: 99212 ==

== ENCOUNTER 2020-10-28 08:14 | Outpatient (REF) | payer MEDICARE, OTHER, SELFPAY | END 2020-10-28 08:15 | disposition home or self-care (01) | LOC: HO.HOSX 08:14 | PROVIDERS: Visit Provider Orthopaedic Surgery | DX: Z13.89 Encounter for screening for other disorder (principal) ==

== ENCOUNTER 2020-11-08 12:09 | Outpatient (REF) | payer MEDICARE, OTHER, SELFPAY ==
--- NOTE | ~2020-11-08 | XR_ITS ---
EXAMINATION: XR KNEE STANDING, BILATERAL XR KNEE, LEFT XR KNEE, RIGHT CLINICAL INFORMATION: Bilateral knee pain. COMPARISON: None TECHNIQUE: AP bilateral knee standing 1 view. Two views each knee. FINDINGS: AP Bilateral Knees Standing: There are total bilateral knee prostheses with the prosthetic components in satisfactory alignment. No prosthetic loosening seen. Right Knee: There is a total knee prosthesis in satisfactory alignment with no prosthetic loosening. There are cheua-wq-ehhqwivc sized anterior superior and anterior inferior patellar enthesophytes. No loose bodies or suprapatellar joint effusion seen. Left Knee: Total left knee prosthesis in alignment. There is no prosthetic loosening seen. There are small anterior superior and anterior inferior patellar enthesophytes with mild anterior superior patellar joint effusion and anterior knee soft tissue swelling. XR/XR knee standing BI IMPRESSION: Bilateral total knee prostheses in satisfactory alignment with no prosthetic loosening seen. Mild soft tissue swelling and mild spur joint effusion suspected left knee. There are bilateral anterior superior and anterior inferior patellar enthesophytes slightly larger in the right knee.
--- NOTE | ~2020-11-08 | XR_ITS ---
EXAMINATION: XR KNEE STANDING, BILATERAL XR KNEE, LEFT XR KNEE, RIGHT CLINICAL INFORMATION: Bilateral knee pain. COMPARISON: None TECHNIQUE: AP bilateral knee standing 1 view. Two views each knee. FINDINGS: AP Bilateral Knees Standing: There are total bilateral knee prostheses with the prosthetic components in satisfactory alignment. No prosthetic loosening seen. Right Knee: There is a total knee prosthesis in satisfactory alignment with no prosthetic loosening. There are tkrwg-qn-yaeermkx sized anterior superior and anterior inferior patellar enthesophytes. No loose bodies or suprapatellar joint effusion seen. Left Knee: Total left knee prosthesis in alignment. There is no prosthetic loosening seen. There are small anterior superior and anterior inferior patellar enthesophytes with mild anterior superior patellar joint effusion and anterior knee soft tissue swelling. XR/XR knee RT 2V IMPRESSION: Bilateral total knee prostheses in satisfactory alignment with no prosthetic loosening seen. Mild soft tissue swelling and mild spur joint effusion suspected left knee. There are bilateral anterior superior and anterior inferior patellar enthesophytes slightly larger in the right knee.
--- NOTE | ~2020-11-08 | XR_ITS ---
EXAMINATION: XR KNEE STANDING, BILATERAL XR KNEE, LEFT XR KNEE, RIGHT CLINICAL INFORMATION: Bilateral knee pain. COMPARISON: None TECHNIQUE: AP bilateral knee standing 1 view. Two views each knee. FINDINGS: AP Bilateral Knees Standing: There are total bilateral knee prostheses with the prosthetic components in satisfactory alignment. No prosthetic loosening seen. Right Knee: There is a total knee prosthesis in satisfactory alignment with no prosthetic loosening. There are udpug-jf-mlgituev sized anterior superior and anterior inferior patellar enthesophytes. No loose bodies or suprapatellar joint effusion seen. Left Knee: Total left knee prosthesis in alignment. There is no prosthetic loosening seen. There are small anterior superior and anterior inferior patellar enthesophytes with mild anterior superior patellar joint effusion and anterior knee soft tissue swelling. XR/XR knee LT 2V IMPRESSION: Bilateral total knee prostheses in satisfactory alignment with no prosthetic loosening seen. Mild soft tissue swelling and mild spur joint effusion suspected left knee. There are bilateral anterior superior and anterior inferior patellar enthesophytes slightly larger in the right knee.
== END 2020-11-08 12:10 | disposition home or self-care (01) ==
LOC: HO.HOSX 12:09
PROVIDERS: Visit Provider Orthopaedic Surgery
DX: Z47.1 Aftercare following joint replacement surgery (principal); Z96.653 Presence of artificial knee joint, bilateral
CPT/HCPCS: 73560; 73565; 99212

== ENCOUNTER → 2021-08-25 14:50 | Outpatient (BNVA) | payer MEDICARE, OTHER, SELFPAY | PROVIDERS: Visit Provider Orthopaedic Surgery | DX: S85.01 Laceration of popliteal artery (principal); Z96.652 Presence of left artificial knee joint | CPT/HCPCS: 99212 ==

== ENCOUNTER 2021-09-19 07:16 | Outpatient (REF) | payer MEDICARE, OTHER, SELFPAY ==
--- NOTE | ~2021-09-19 | XR_ITS ---
EXAMINATION: XR SHOULDER, LEFT CLINICAL INFORMATION: M25.519 - Pain in unspecified shoulder COMPARISON: Outside portable single view left shoulder 08/29/2021 ([facility]). TECHNIQUE: Left shoulder is imaged in 3 views. FINDINGS: There is no fracture or dislocation. The dislocation seen on outside study is no longer present. The glenohumeral joint appears normal. No joint narrowing or erosive change. No visible Hill-Sachs lesion by plain film. The acromioclavicular alignment is normal. Again, there is focal mineralization soft tissues posterior to the humeral neck possibly related to the teres minor. XR/XR shoulder LT min 2V IMPRESSION: -No fracture or dislocation or arthropathy. -Calcification possibly related to teres minor.
== END 2021-09-19 07:17 | disposition home or self-care (01) ==
LOC: HO.HOSX 07:16
PROVIDERS: Visit Provider Physician Assistant
DX: S43.005A Unspecified dislocation of left shoulder joint, initial encounter (principal)
CPT/HCPCS: 73030; 99212

== ENCOUNTER 2021-11-07 09:00 | Outpatient (RCR) | payer MEDICARE, OTHER, SELFPAY ==
--- NOTE | 2021-10-07 12:12 | MHC.PT.EP ---
[facility] [place] [facility] [place] Office [place] Office [address] Miranda Bustos [address] [phone] F: [phone] F: [phone] F: [phone] F: [phone] Physical Therapy Plan of Care Date of Evaluation: Date of Surgery: NA Diagnosis: DISLOCATION L SHOULDER Assessment: Pt IS 71 YO F REFERRED TO PT FROM [facility] ([facility]) S/P L SHLDER DISLOCATION THAT OCCURRED ABOUT 3 WKS AGO WHEN Pt FELL. Pt WENT TO ER AT [facility], SHOULDER RELOCATED AND PLACED IN SLING. PER CURRENT XRAY (09/19/21) AT [facility] NO CURRENT DISLOCATION, NO HILL SACHS LESION, BUT SOME NOTABLE ISSUE AT TERES MINOR INSERTION. OF NOTE, Pt REPORTS HAVING A BAD EXPERIENCE WITH A PT AFTER HER TKR AND IS SENSITIVE ABOUT HER CARE ([place]ASSUR[place] OF [place] C[place] [facility] [place] Frequency and Duration: The patient will be seen 2X/WK X 8 WKS Short Term Goals: 1. INCREASED AWARENESS POSTURE AND SHLDER CARE 2. INCREASED L SHLDER PROM/AAROM FLEX TO 130, ABD TO 130, ER TO 25 3. DC SLING 4. DECREASED CERVICAL PAIN OVERALL Snf Goals: 1. I HEP WITH DC EX PLAN 2. INCREASED L SHLDER STRENGTH AT LEAST 1/2 MM GRADE 3. INCREASED L SHLDER ROM FOR AROM FLEXION TO 120, ABD TO 120, ER TO 45 4. DECREASED L SHLDER PAIN AT LEAST 50% WITH ADLS Treatment Plan: Modalities to reduce pain, spasms and effusion. Manual therapy to restore motion and function. Therapeutic exercise to improve strength and flexibility. Neuromuscular re-education for posture and balance. Therapeutic activities to return to functional activities of daily living. Electronically signed by: OTTO COFFEY PT Please sign and return to therapist. Thank you for your referral.
--- NOTE | 2022-01-10 09:53 | MHC.PT.DC ---
[facility] [place] Office [place] Office [place] Office [address] Miranda Bustos [address] [phone] F: [phone] F: [phone] F: [phone] F: [phone] Physical Therapy Discharge Report Diagnosis: DISLOCATION L SHOULDER Date of Surgery: DOI 09/14/21 Date of Evaluation: 10/07/21 Date of Discharge: 01/10/22 Treatments to Date: 7 Cancellations to Date: No Shows to Date: Discharge Status: Patient Elected to Stop Recommend MD Follow-up Discharge Summary: LAST SEEN ON 11/07/21. PER ASSESSMENT FROM THAT NOTE BY MAURIZIO ZAMUDIO MASK LAYOUT DESIGNER:' 11/07 pt frustrated with slow progress. pt is 8wks post injury November 09. Pt advised to contact MD for a follow up. '. Pt THEN NO SHOWED NEXT APPT WITHOUT FURTHER APPTS SCHEDULED. HAS HAD FU WITH ORTHO AND MRI. WILL DC AT THIS TIME. WILL RESTART PT IF RE-REFERRED FROM ORTHO Electronically signed by: OTTO COFFEY PT Please sign and return to therapist. Thank you for your referral.
== END 2022-01-10 09:53 | disposition home or self-care (01) ==
LOC: HO.PT 09:00
PROVIDERS: PCP Internal Medicine; Visit Provider Physician Assistant
DX: S43.005A Unspecified dislocation of left shoulder joint, initial encounter (principal)
CPT/HCPCS: 97110; 97140; 97162; 97535

== ENCOUNTER → 2021-12-01 14:32 | Outpatient (BNVA) | payer MEDICARE, OTHER, SELFPAY | PROVIDERS: PCP Internal Medicine; Visit Provider Orthopaedic Surgery | DX: S43.005D Unspecified dislocation of left shoulder joint, subsequent encounter (principal); S86.012D Strain of left Achilles tendon, subsequent encounter; R26.89 Other abnormalities of gait and mobility | CPT/HCPCS: 99212 ==

== ENCOUNTER 2021-12-29 15:08 | Outpatient (REF) | payer MEDICARE, OTHER, SELFPAY ==
--- NOTE | ~2021-12-29 | MR_ITS ---
EXAMINATION: MR SHOULDER WITHOUT CONTRAST, LEFT CLINICAL INFORMATION: Left shoulder pain. Decreased range of motion. Fall 3 months ago. COMPARISON: Left shoulder radiographs dated 09/19/2021. TECHNIQUE: Multisequence MR imaging of the left shoulder was obtained without contrast on a high-field strength scanner. FINDINGS: ROTATOR CUFF: Significant attenuation of the distal supraspinatus and infraspinatus tendons consistent diffuse articular surface partial tearing. There is a full-thickness component to the tear involving the posterior supraspinatus and anterior infraspinatus tendon and likely measuring up to 3.3 cm in AP dimension. The full-thickness component measures approximately 3.6 cm in ML dimension. [id number] subscapularis tendinosis. Moderate supraspinatus, infraspinous, and teres minor muscle atrophy. BICEPS: Mild proximal long head biceps tendinosis. CORACOACROMIAL ARCH: The undersurface of the acromion is attenuated, consistent with prior acromioplasty. The distal clavicle has been resected. LABRUM/CAPSULE: No displaced labral tear. GLENOHUMERAL JOINT/MARROW: Mild articular cartilage thinning with tiny marginal osteophytes. Moderate joint effusion. MR/MR shoulder LT wo con IMPRESSION: 1. Significant attenuation of the supraspinatus and infraspinatus tendons consistent with diffuse high-grade articular surface partial tearing. Full-thickness component to the tear involving the posterior supraspinatus and anterior infraspinatus tendon measuring up to 3.3 cm in AP dimension. Moderate subscapularis tendinosis. Moderate supraspinatus, infraspinatus, and teres minor muscle atrophy. 2. Mild proximal long head biceps tendinosis. 3. Prior acromioplasty and distal clavicular resection. 4. Mild glenohumeral osteoarthritis and moderate joint effusion.
== END 2021-12-29 15:09 | disposition home or self-care (01) ==
LOC: HO.MRI 15:08
PROVIDERS: PCP Internal Medicine; Visit Provider Orthopaedic Surgery
DX: M24.812 Other specific joint derangements of left shoulder, not elsewhere classified (principal); S43.005A Unspecified dislocation of left shoulder joint, initial encounter
CPT/HCPCS: 73221

== ENCOUNTER → 2022-01-16 10:29 | Outpatient (BNVA) | payer MEDICARE, OTHER, SELFPAY | PROVIDERS: PCP Internal Medicine; Visit Provider Orthopaedic Surgery | DX: M75.102 Unspecified rotator cuff tear or rupture of left shoulder, not specified as traumatic (principal); M12.812 Other specific arthropathies, not elsewhere classified, left shoulder; E11.9 Type 2 diabetes mellitus without complications | CPT/HCPCS: 99212 ==

== ENCOUNTER → 2022-01-26 12:36 | Outpatient (BNVA) | payer MEDICARE, OTHER, SELFPAY | PROVIDERS: PCP Internal Medicine; Referring Provider Internal Medicine; Visit Provider Internal Medicine | DX: Z01.810 Encounter for preprocedural cardiovascular examination (principal) | CPT/HCPCS: 93005; 99202 ==

== ENCOUNTER 2022-02-08 06:48 | Day surgery (SDC) | payer MEDICARE, OTHER, SELFPAY ==
[2022-02-02 10:52] VITALS: BMI 43.7
--- NOTE | 2022-02-07 08:29 | P.CONAN_ITS ---
Documented by User: Tameka Bynum NP 02/07/22 08:34 HPI - Anesthesia Eval Consult details Narrative: 71yo F for Left Arthroscopic Rotator Cuff Repair Cardiac cleared s/p TKA 07/2020 with GA-ETT 7 PMFSH Active Problems Active Problems: All Active Problems (Updated 02/02/22 @ 10:49 by Devi Person RN) Status post total left knee replacement (Acute) Status post bilateral knee replacements (Acute) Strain of left Achilles tendon (Acute) Dislocation of left shoulder joint (Acute) Balance problem (Acute) Rotator cuff tear arthropathy of left shoulder (Acute) Preoperative cardiovascular examination (Acute) Diabetes mellitus (Acute) Past Medical History Medical History (Updated 02/02/22 @ 10:49 by Devi Person RN) Arthritis Back pain Diabetes mellitus Elevated cholesterol Herniated cervical disc History of palpitations Hx of pulmonary embolus ESTEFANÍA treated with BiPAP Osteoarthritis of left knee Postoperative abscess involving suture Family History Family History Daughter No problems noted. Son No problems noted. Family history of problems with anesthesia: No Surgical History Surgical History (Updated 02/02/22 @ 10:40 by Devi Person RN) History of section History of colon resection History of esophagogastroduodenoscopy (EGD) History of total left knee replacement Hx of hernia repair Hx of hysterectomy Hx of shoulder surgery S/P laparoscopic sleeve gastrectomy Status post total right knee replacement History of Problems with Anesthesia: No Social History Social History Are you a primary health and social care teacher to a significant other at home: No Do you presently have visiting nurse or other home services: No Patient Tobacco Use Status: Never used Tobacco Second Hand Smoke Exposure: No Use of substances other than those prescribed or required for medical reasons: No Are you DNR?: No Advance Directives: No Advance Directives Information Provided: Yes Recently lost weight without trying: No Nutrition Risks: No Nutritional Risk service: No Current occupational status: employed and retired Current occupation: chain sales consultant/ cook/rt hand Meds Allergies Allergy/AdvReac Type Severity Reaction Status Date / Time enoxaparin [From LOVENOX] Allergy Severe SEVERE Verified 01/26/22 12:50 RASH/ITCHING-ABDOMEN morphine [MORPHINE] Allergy Severe ITCHING, Verified 01/26/22 12:50 itchy Home Medications Medication Instructions Recorded Confirmed Last Taken Type gabapentin 600 mg tablet 600 mg PO TID 01/14/20 02/02/22 02/08/22 History metformin 1,000 mg tablet 500 mg PO BIDWM 01/14/20 02/02/22 02/08/22 History ergocalciferol (vitamin D2) 1,250 1 cap PO QWEEK 07/23/20 02/02/22 02/07/22 History mcg (50,000 unit) capsule linaclotide 290 mcg capsule 1 cap PO DAILY 07/23/20 02/02/22 02/06/22 History (Linzess) atorvastatin 20 mg tablet 20 mg PO Q OTHER DAY 01/26/22 02/02/22 02/07/22 History furosemide 40 mg tablet 40 mg PO QAM 01/26/22 02/02/22 02/07/22 History tramadol 50 mg tablet 50 mg PO DAILY PRN Pain 01/26/22 02/02/22 02/07/22 History Exam Exam Date and Time: February 07, 2022 0829 Height,Weight and Vital Signs: Height 5 ft 1 in Weight 105 kg Narrative Narrative: EKG 01/2022 sinus rhythm at 69/Min; low-voltage complexes; sinus arrhythmia but otherwise unremarkable.? Borderline prolongation of ND; corrected QT. Assessment and Plan Assessment Anesthesia Assessment: Chart Reviewed Final Anesthetic Review Family History of Problems with Anesthesia: No History of Problems with Anesthesia: No Documented by User: Tonny Magallon MD 02/08/22 15:28 [facility] Past Medical History Medical History (Updated 02/02/22 @ 10:49 by Devi Person RN) Arthritis Back pain Diabetes mellitus Elevated cholesterol Herniated cervical disc History of palpitations Hx of pulmonary embolus ESTEFANÍA treated with BiPAP Osteoarthritis of left knee Postoperative abscess involving suture Functional capacity: independent ambulation Family History Family History Daughter No problems noted. Son No problems noted. Surgical History Surgical History (Updated 02/02/22 @ 10:40 by Devi Person RN) History of section History of colon resection History of esophagogastroduodenoscopy (EGD) History of total left knee replacement Hx of hernia repair Hx of hysterectomy Hx of shoulder surgery S/P laparoscopic sleeve gastrectomy Status post total right knee replacement Social History Social History Are you a primary health and social care teacher to a significant other at home: No Do you presently have visiting nurse or other home services: No Patient Tobacco Use Status: Never used Tobacco Second Hand Smoke Exposure: No Use of substances other than those prescribed or required for medical reasons: No Are you DNR?: No Advance Directives: No Advance Directives Information Provided: Yes Recently lost weight without trying: No Nutrition Risks: No Nutritional Risk service: No Current occupational status: employed and retired Current occupation: chain sales consultant/ cook/rt hand Meds Allergies Allergy/AdvReac Type Severity Reaction Status Date / Time enoxaparin [From LOVENOX] Allergy Severe SEVERE Verified 01/26/22 12:50 RASH/ITCHING-ABDOMEN morphine [MORPHINE] Allergy Severe ITCHING, Verified 01/26/22 12:50 itchy Home Medications Medication Instructions Recorded Confirmed Last Taken Type gabapentin 600 mg tablet 600 mg PO TID 01/14/20 02/02/22 02/08/22 History metformin 1,000 mg tablet 500 mg PO BIDWM 01/14/20 02/02/22 02/08/22 History ergocalciferol (vitamin D2) 1,250 1 cap PO QWEEK 07/23/20 02/02/22 02/07/22 History mcg (50,000 unit) capsule linaclotide 290 mcg capsule 1 cap PO DAILY 07/23/20 02/02/22 02/06/22 History (Linzess) atorvastatin 20 mg tablet 20 mg PO Q OTHER DAY 01/26/22 02/02/22 02/07/22 History furosemide 40 mg tablet 40 mg PO QAM 01/26/22 02/02/22 02/07/22 History tramadol 50 mg tablet 50 mg PO DAILY PRN Pain 01/26/22 02/02/2202/07/22 History Exam Airway Mallampati Class: IV TM Dist: >3cm Neck ROM: Full Partial: Lower Loose/Missing/Broken Teeth: Yes (Poor dentition ) Heart: S1,S2 Lungs: distant breath sounds Assessment and Plan Assessment Anesthesia Assessment: Anesthesia Plan Discussed Final Anesthetic Review NPO: Yes ASA Class: III Final Preanesthetic Review: Meds/Allgs Chart Reviewed, Consent Obtained/Reviewed and Anes Risks/Benef Reviewed Patient Risk: High Procedure Risk: Intermediate Anesthetic Plan Anesthetic Plan: GA and Regional Block Disposition: Standard PACU
[2022-02-08] VITALS (35 sets, daily range): BP systolic 112–169; BP diastolic 64–101; PULSE 59–109; RESP 14–20; TEMP 36.3–36.8; O2SAT 91–99
[2022-02-08 07:12] LABS: Glucose, Whole Blood 97 mg/dL (60-115)
[2022-02-08 07:39] LABS: Hemoglobin 12.1 g/dl (12.0-16.0); Mean Corpuscular HGB Conc 31.8 g/dl (31.0-35.0); Mean Corpuscular Volume 94.3 fL (80.0-98.0); Mean Platelet Volume 11.2 fL (9.4-12.3); Platelet Count 182 X10*3/uL (160-400); Red Blood Count 4.03 X10*6/uL (4.20-5.50); White Blood Count 6.8 X10*3/uL (4.8-10.8)
[2022-02-08] MEDS: Lactated Ringers 1,000 ML 100 ML IVCONT (07:43)
[2022-02-08 08:24] LABS: Anion Gap 14 (12-20); Blood Urea Nitrogen 16 mg/dL (9-16); Calcium 9.6 mg/dL (8.4-10.2); Carbon Dioxide 29 mmol/L (22-29); Chloride 103 mmol/L (96-108); Creatinine Clr Calc Pharmacy 75.8; Estimated Glomerular Filt Rate > 60; Glucose Fasting 94 mg/dL (60-99); Sodium 142 mmol/L (135-145)
--- NOTE | 2022-02-08 08:37 | PC.NURSE ---
nerve block with dr garrett and dr sauceda pt aware care plan timeout completed prior [id number]
--- NOTE | 2022-02-08 11:41 | PM.OP ---
Brief Operative Note Date of Service: 02/08/22 Pre-op diagnosis: Left rtc tear Post-op diagnosis: same Procedure: 1) RTC repair, 2) sub acromial decompression Implants: Smmekah and Kim helacoil suture anchor x 4 Surgeon: Matteo Merchant MD Anesthesia: GETA and regional Was an Nursing Department Chairperson used for this Procedure?: No Estimated blood loss (mL): 5 IV fluids (mL): 800 Pathology: none sent Condition: stable Disposition: PACU
[2022-02-08] MEDS: Acetaminophen 1,000 MG/100 ML PIGGYBACK 400 MG IV (11:44)
[2022-02-08] MEDS: fentaNYL citrate/PF 100 MCG/2 ML VIAL 25 MCG IVPUSH ×6 (11:46→14:13)
[2022-02-08] MEDS: oxyCODONE HCl Immed Release 5 MG TABLET PO ×2 (12:18→13:29)
--- NOTE | 2022-02-08 12:38 | W.PM.OPN ---
Operative Note Operative Note Date of Service: 02/08/22 Narrative: Date of Service: 02/08/22 Pre-op diagnosis: Left rtc tear Post-op diagnosis: same Procedure: 1) RTC repair, 2) sub acromial decompression Implants: [employer]ue helacoil suture anchor x 4 Surgeon: Matteo Merchant MD Anesthesia: GETA and regional Was an Community Engagement Representative used for this Procedure?: No Estimated blood loss (mL): 5 IV fluids (mL): 800 Pathology: none sent Condition: stable Disposition: PACU Procedure in detail: Patient was brought to the operating room and placed the the beach chair position. All bony prominences were well padded and the limb was prepped and draped in standard sterile fashion. A time out was called to identify proper site, proper procedure and proper surgeon. IV antibiotics per weight were administered. I began by making a posterolateral stab incision with a 15 blade. A blunt trochar was placed into the glenohumeral joint and I insufflated the joint with saline and a 30 degree arthroscope was placed. I established an outside- in anterior portal just distal to the biceps tendon. I then began my inspection of the glenohumeral joint. The biceps was intact with mild fraying of the labrum. The subscapularis was intact and there were no cartilage changes at the glenoid or humeral head. There was a full thickness undersurface RTC tear. I debrided the loose cartilage of the glenoid and the degenerative labral tearing. I then removed the trochar and entered the subacromial space. A direct lateral portal was then established and I performed a bursectomy. The cuff was then examined. There was a full thickness tear of the supra and infraspinatus with retraction. The tear was mobile. I then placed two medial row double loaded anchors and then brought the suture tape through the medial cuff. I added two looped sutures at the anterior and posterior most aspect of the tear. I then debrided the bare area down to bleeding bone and, using a cross bridge configuration, brought four limbs to each of two lateral 5.0 anchors. This re-approximated the cuff anatomy near anatomically. I then performed a 5 mm subacromial decompression. Once I was satisfied with the repair final images were captured and I removed all instrumentation. Portals were closed with nylon. Patient was placed in an abduction sling, extubated and brought to the recovery room in stable condition. There were no known complications.
[2022-02-08 13:50] LABS: Glucose, Whole Blood 139 mg/dL (60-115)
--- NOTE | 2022-02-08 17:31 | PC.NURSE ---
sitting in recliner more awake, taking some dinner meal. no further desats while in the recliner 94-96% room air.
--- NOTE | 2022-02-08 18:10 | PC.NURSE ---
assisted to dress at bedside. immobilizer adjusted for support. educated regional nerve block instructions and importance use cpap at home. able ambulate steady gait voidx1. no nausea or dizziness. iv removed. discharge to home
--- NOTE | 2022-02-08 18:11 | PC.NURSE ---
[id number] message sent to pa, romero romo, and surgeon made aware patient has allergy morphine and ms contin sent to pharmacy for post op at home. PA questioned whether benadryl could be taken with ms contin related to itchiness allergy. PA made aware patient hx kimberly on cpap and desats drowsy post op. plan is for patient to take prn percocet for pain control and not fill ms contin. patient and family educated regarding post op pain management plan
== END 2022-02-08 18:13 | disposition home or self-care (01) ==
PROVIDERS: Nurse Practitioner; PCP Internal Medicine; Visit Provider Orthopaedic Surgery
PROC: (CPT 29827; principal; 2022-02-08 08:30)
DX: M75.102 Unspecified rotator cuff tear or rupture of left shoulder, not specified as traumatic (principal); M12.812 Other specific arthropathies, not elsewhere classified, left shoulder; G47.33 Obstructive sleep apnea (adult) (pediatric); E11.9 Type 2 diabetes mellitus without complications; E78.00 Pure hypercholesterolemia, unspecified; Z79.84 Long term (current) use of oral hypoglycemic drugs; Z79.899 Other long term (current) drug therapy; Z99.89 Dependence on other enabling machines and devices; Z86.711 Personal history of pulmonary embolism
CPT/HCPCS: 29827; 29826; 36415; 80048; 82947; 85027; C1713; J0131; J0171; J0690; J1100; J1170; J2250; J2370; J2405; J2550; J2795; J3010

== ENCOUNTER → 2022-02-13 09:51 | Outpatient (BNVA) | payer MEDICARE, OTHER, SELFPAY | PROVIDERS: PCP Internal Medicine; Visit Provider Physician Assistant | DX: Z47.89 Encounter for other orthopedic aftercare (principal); M75.102 Unspecified rotator cuff tear or rupture of left shoulder, not specified as traumatic; M12.812 Other specific arthropathies, not elsewhere classified, left shoulder; Z98.890 Other specified postprocedural states | CPT/HCPCS: 99212 ==

== ENCOUNTER → 2022-03-16 14:53 | Outpatient (BNVA) | payer MEDICARE, OTHER, SELFPAY | PROVIDERS: PCP Internal Medicine; Visit Provider Physician Assistant | DX: Z47.89 Encounter for other orthopedic aftercare (principal); M12.812 Other specific arthropathies, not elsewhere classified, left shoulder; Z87.39 Personal history of other diseases of the musculoskeletal system and connective tissue | CPT/HCPCS: 99212 ==

== ENCOUNTER 2022-04-14 15:00 | Outpatient (RCR) | payer MEDICARE, OTHER, SELFPAY | END 2022-06-12 16:08 | disposition home or self-care (01) | LOC: HO.PT 15:00 | PROVIDERS: Visit Provider Physician Assistant | DX: Z98.890 Other specified postprocedural states (principal) | CPT/HCPCS: 97110; 97140; 97161 ==

== ENCOUNTER → 2022-04-28 14:59 | Outpatient (BNVA) | payer MEDICARE, OTHER, SELFPAY | PROVIDERS: PCP Internal Medicine; Visit Provider Physician Assistant | DX: Z13.89 Encounter for screening for other disorder (principal) | CPT/HCPCS: 99212 ==

== ENCOUNTER → 2022-06-09 14:07 | Outpatient (BNVA) | payer MEDICARE, OTHER, SELFPAY | PROVIDERS: PCP Internal Medicine; Visit Provider Physician Assistant | DX: Z09 Encounter for follow-up examination after completed treatment for conditions other than malignant neoplasm (principal); Z87.39 Personal history of other diseases of the musculoskeletal system and connective tissue | CPT/HCPCS: 99212 ==